=== PATIENT | female | born 1935 | race African-American/Black ===

== ENCOUNTER 2017-02-21 20:49 | Emergency (ER) | payer OTHER, MEDICAID ==
[~2017-02-21] VITALS: Ht 167.6 cm; Wt 96.6 kg
[~2017-02-21 20:49] MED LIST: AMARYL4 MG PO; AMLODIPINE BESY10 MG PO; COUMADIN2 MG PO; KLOR-CON 1010 MEQ PO; LASIX40 MG PO; PANTOPRAZOLE SO40 MG PO
[2017-02-21 22:18] LABS: BASOPHILS % (AUTO) 1.1 % (0.0-2.0); LYMPHOCYTES % (AUTO) 28.4 % (20.0-45.0); MEAN CORPUSCULAR HEMOGLOBIN 30.7 PG (27.0-31.0); MEAN CORPUSCULAR HGB CONC 32.9 G/DL (32.0-36.0); MEAN CORPUSCULAR VOLUME 94 FL (80-99); MEAN PLATELET VOLUME 7.4 FL (6.5-10.1); MONOCYTES % (AUTO) 8.4 % (1.0-10.0); PLATELET COUNT 186 K/UL (150-450); RED BLOOD COUNT 3.39 M/UL (4.20-5.40); RED CELL DISTRIBUTION WIDTH 14.2 % (11.6-14.8); WHITE BLOOD COUNT 6.4 K/UL (4.8-10.8)
--- NOTE | 2017-02-21 22:30 | Emergency Room Report ---
History of Present Illness General Chief Complaint: Lower Extremity Injury Source: Patient, Medical Record Present Illness HPI This is an 81-year-old female with a history hypertension, CHF, recent DVT on Coumadin. She presents with increasing pedal edema. This has been a chronic issue but worse in the last week. No nausea no vomiting. No trauma. No shortness of breath. It is interfering with her walking. She is currently taking 80 mg of Lasix a day. Allergies: Coded Allergies: BENAZEPRIL (Unverified Allergy, Unknown, 02/21/17) CODEINE (Unverified Allergy, Unknown, 02/21/17) PENICILLINS (Unverified Allergy, Unknown, 02/21/17) Uncoded Allergies: pcn (Allergy, Mild, sick, 10/17/12) Patient History Past Medical History: see triage record, old chart reviewed, HTN, CHF, other - dvt Past Surgical History: other Pertinent Family History: none Social History: Denies: smoking Last Menstrual Period: NA Now: No Immunizations: other Reviewed Nursing Documentation: PMH: Agreed, PSxH: Agreed Nursing Documentation-PMH Hx Hypertension: Yes - PAROXYSMAL ATRIAL TACHYCARDIA Hx Diabetes: Yes - OBESITY Hx Cancer: No Hx Cerebrovascular Accident: Yes Hx Vertigo: Yes Review of Systems Eye: Denies: blurred vision, eye pain ENT: Denies: ear pain, nose congestion, throat swelling Respiratory: Denies: cough, shortness of breath Cardiovascular: Denies: chest pain, palpitations Gastrointestinal: Denies: abdominal pain, diarrhea, nausea, vomiting Musculoskeletal: Reports: joint swelling, Denies: back pain, joint pain Skin: Denies: rash Neurological: Denies: headache, numbness Endocrine: Denies: increased thirst, increased urine Hematologic/Lymphatic: Denies: easy bruising All Other Systems: negative except mentioned in HPI Physical Exam Vital Signs Date Time Temp Pulse Resp B/P Pulse Ox O2 Delivery O2 Flow Rate FiO2 02/21/17 20:33 99.3 84 18 127/77 98 Room Air vitals normal Sp02 EP Interpretation: reviewed, normal General Appearance: well appearing, no apparent distress, alert Head: normocephalic, atraumatic Eyes: bilateral eye EOMI, bilateral eye PERRL ENT: hearing grossly normal, normal pharynx Neck: full range of motion, supple, no meningismus Respiratory: chest non-tender, lungs clear, normal breath sounds Cardiovascular #1: regular rate, rhythm, no murmur Gastrointestinal: normal bowel sounds, non tender, no mass, no organomegaly, no bruit, non-distended Musculoskeletal: back normal, normal range of motion, swelling - 2+ pitting edema Psychiatric: mood/affect normal Skin: warm/dry Medical Decision Making Diagnostic Impression: Primary Impression: Peripheral edema Additional Impressions: Anemia, chronic disease Renal insufficiency ER Course Patient with peripheral edema. No evidence of CHF. She diuresed well with IV Lasix. Challis better. No evidence of DVT. She started on Coumadin and is therapeutic INR. Doubt new DVT. No evidence of ACS. Because she's arty and a very large dose of Lasix, will switch to a loop diuretic. We'll discharge home. Lab Results Impression labs unremarkable Chest X-Ray Diagnostic Results Chest X-Ray Diagnostic Results : Chest X-Ray Ordered: Yes # of Views/Limited/Complete: 1 View Indication: Shortness of Breath EP Interpretation: Yes Interpretation: no consolidation, no effusion, no pneumothorax, no acute cardiopulmonary disease Impression: No acute disease Interpreting ER Provider: electronically signed by Shiv Gutierrez MD Last Vital Signs Date Time Temp Pulse Resp B/P Pulse Ox O2 Delivery O2 Flow Rate FiO2 02/21/17 20:33 99.3 84 18 127/77 98 Room Air Status: improved Disposition: HOME, SELF-CARE Condition: Stable Scripts Bumetanide* (BUMETANIDE*) 2 Mg Tablet 2 MG ORAL DAILY, #30 TAB Prov: SHIV GUTIERREZ M.D. 02/22/17 Additional Instructions: Stop your lasix. Use bumex instead. Follow up with your doctor in 7 days. Return if worse. SHIV GUTIERREZ M.D. Feb 21, 2017 22:29
[2017-02-21 22:36] LABS: ANION GAP 16 (5-15); CALCIUM 9.3 mg/dL (8.6-10.2); CARBON DIOXIDE 27 mEQ/L (20-30); CHLORIDE 103 mEQ/L (98-107); CREATININE 1.7 mg/dL (0.5-0.9); POTASSIUM 3.9 mEQ/L (3.4-4.9); SODIUM 146 mEQ/L (135-145)
[2017-02-21 22:38] LABS: INR 2.9 (0.9-1.1); PROTHROMBIN TIME 31.2 SEC (9.30-11.50)
[2017-02-21 22:44] LABS: HEMOLYSIS 159
[2017-02-22] MEDS ORDERED: BUMETANIDE2 MG ORAL (00:02)
[2017-02-22 02:09] VITALS: BP 127/77
--- NOTE | 2017-02-22 08:51 | Diagnostic Imaging Report ---
Indications: Shortness breath Technique: Portable AP chest Findings: Comparison: None Cardiac silhouette remains enlarged. Pulmonary vasculature remains within normal limits. Inspiratory effort has decreased. Linear densities have developed in the right lung base, left midlung. Visualized portions of lungs and pleura remain otherwise clear. Mild calcification of the aortic arch, mild S-shaped scoliosis of the thoracolumbar spine again noted. Right glenohumeral joint degenerative changes are now suggested.. IMPRESSION: Development of bilateral subsegmental atelectasis with decrease in inspiration Otherwise no evidence of acute disease, unchanged Suggestion of right glenohumeral degenerative arthropathy, suboptimally demonstrated. Clinically indicated, suggest right shoulder radiographs for further evaluation. Other stable chronic changes as described
== END 2017-02-22 02:09 | disposition home or self-care (01) ==
LOC: EDBD 20:49 → EMR 21:30
DX: R60.9 Edema, unspecified (principal); I10 Essential (primary) hypertension; I50.9 Heart failure, unspecified; Z86.718 Personal history of other venous thrombosis and embolism; Z79.01 Long term (current) use of anticoagulants; Z88.8 Allergy status to other drugs, medicaments and biological substances; Z88.6 Allergy status to analgesic agent; Z88.0 Allergy status to penicillin; E11.9 Type 2 diabetes mellitus without complications; Z86.73 Personal history of transient ischemic attack (TIA), and cerebral infarction without residual deficits; E66.9 Obesity, unspecified; Z68.34 Body mass index [BMI] 34.0-34.9, adult; D63.8 Anemia in other chronic diseases classified elsewhere; N28.9 Disorder of kidney and ureter, unspecified
CPT/HCPCS: 36415; 71010; 80048; 83880; 85025; 85610; 85730; 96374; 99284; J1940

== ENCOUNTER 2017-02-25 13:34 | Inpatient (IN) | payer OTHER, MEDICAID ==
[~2017-02-25] VITALS: Ht 167.6 cm; Wt 96.6 kg
[~2017-02-25 13:34] MED LIST changes: +BUMETANIDE2 MG ORAL
[2017-02-25 14:54] VITALS: BP 135/72
[2017-02-25 15:10] LABS: BASOPHILS % (AUTO) 0.5 % (0.0-2.0); EOSINOPHILS % (AUTO) 1.1 % (0.0-3.0); LYMPHOCYTES % (AUTO) 23.4 % (20.0-45.0); MEAN CORPUSCULAR HEMOGLOBIN 29.9 PG (27.0-31.0); MEAN CORPUSCULAR HGB CONC 32.1 G/DL (32.0-36.0); MEAN CORPUSCULAR VOLUME 93 FL (80-99); MEAN PLATELET VOLUME 6.9 FL (6.5-10.1); MONOCYTES % (AUTO) 7.6 % (1.0-10.0); NEUTROPHILS % (AUTO) 67.4 % (45.0-75.0); PLATELET COUNT 203 K/UL (150-450); RED CELL DISTRIBUTION WIDTH 14.1 % (11.6-14.8); WHITE BLOOD COUNT 6.5 K/UL (4.8-10.8)
[2017-02-25 15:28] LABS: TROPONIN I < 0.30 ng/mL (<=0.30)
[2017-02-25 15:29] LABS: INR 2.8 (0.9-1.1)
[2017-02-25 15:31] LABS: ALANINE AMINOTRANSFERASE 14 U/L (3-33); ASPARTATE AMINO TRANSFERASE 17 U/L (5-40); CALCIUM 9.1 mg/dL (8.6-10.2); CHLORIDE 97 mEQ/L (98-107); CREATININE 1.9 mg/dL (0.5-0.9); POTASSIUM 2.8 mEQ/L (3.4-4.9); SODIUM 143 mEQ/L (135-145)
[2017-02-25 15:43] LABS: ALBUMIN/GLOBULIN RATIO 1.2 (1.0-2.7); ANION GAP 18 (5-15); CARBON DIOXIDE 28 mEQ/L (20-30); TOTAL PROTEIN 7.3 g/dL (6.6-8.7)
[2017-02-25 15:58] LABS: CKMB < 1.5 ng/mL (< 3.8)
[2017-02-25] MEDS ORDERED: Miralax 17gm pkt ORAL PRN (16:00)
[2017-02-25] MEDS ORDERED: DuoNeb 0.5-3(2.5)mg/3ml neb HHN PRN (16:00)
[2017-02-25 16:20] VITALS: BP 147/86
[2017-02-25] MEDS ORDERED: ZAROXOLYN2.5 MG ORAL (16:56)
[2017-02-25] MEDS ORDERED: ATORVASTATIN CA20 MG ORAL (16:56)
[2017-02-25] MEDS ORDERED: CARTIA XT240 MG ORAL (16:56)
[2017-02-25] MEDS ORDERED: PANTOPRAZOLE SO40 MG ORAL (16:56)
[2017-02-25] MEDS ORDERED: WARFARIN SODIUM4 MG ORAL (16:57)
[2017-02-25] MEDS ORDERED: HYDRALAZINE HCL25 M1 ORAL (16:58)
[2017-02-25] MEDS ORDERED: VITAMIN D22000 UNIT PO (16:58)
[2017-02-25] MEDS ORDERED: XALATAN2.5 ML BOTH EYES (16:58)
[2017-02-25] MEDS ORDERED: Morphine Sulfate 4mg/ml Inj ONE (17:14)
--- NOTE | 2017-02-25 17:57 | Emergency Room Report ---
History of Present Illness General Chief Complaint: Dyspnea/Respdistress Source: Patient, Medical Record Present Illness HPI 81-year-old female presents ED for evaluation. [employer] Specialist at bedside states that patient is complaining of shortness of breath times one week also complaining of bilateral leg pain and swelling. Has history of DVT. Currently on blood thinners. Patient denies any chest pain. No shortness of breath while at rest and when walking. Patient states she takes "water pills" for the swelling in her legs. No other aggravating or relieving factors. Denies any other associated symptom Allergies: Coded Allergies: BENAZEPRIL (Unverified Allergy, Unknown, 02/21/17) CODEINE (Unverified Allergy, Unknown, 02/21/17) PENICILLINS (Unverified Allergy, Unknown, 02/21/17) Uncoded Allergies: pcn (Allergy, Mild, sick, 10/17/12) Patient History Past Medical History: HTN, CVA/TIA Past Surgical History: none Pertinent Family History: none Social History: Denies: alcohol use, drug use, smoking Now: No Immunizations: UTD Reviewed Nursing Documentation: PMH: Agreed, PSxH: Agreed Nursing Documentation-PMH Hx Hypertension: Yes - PAROXYSMAL ATRIAL TACHYCARDIA Hx Diabetes: Yes - OBESITY Hx Cancer: No Hx Cerebrovascular Accident: Yes Hx Vertigo: Yes Review of Systems All Other Systems: negative except mentioned in HPI Physical Exam Vital Signs Date Time Temp Pulse Resp B/P Pulse Ox O2 Delivery O2 Flow Rate FiO2 02/25/17 13:44 98.2 88 18 139/72 97 Room Air Sp02 EP Interpretation: reviewed, normal General Appearance: no apparent distress, alert, GCS 15, non-toxic Head: normocephalic, atraumatic Eyes: bilateral eye PERRL, bilateral eye normal inspection ENT: hearing grossly normal, normal pharynx, no angioedema, normal voice Neck: full range of motion, supple/symm/no masses Respiratory: chest non-tender, lungs clear, normal breath sounds, speaking full sentences Cardiovascular #1: regular rate, rhythm, no edema Cardiovascular #2: 2+ carotid (R), 2+ carotid (L), 2+ radial (R), 2+ radial (L) , 2+ dorsalis pedis (R), 2+ dorsalis pedis (L) Gastrointestinal: normal bowel sounds, non tender, soft, non-distended, no guarding, no rebound Rectal: deferred Genitourinary: normal inspection, no CVA tenderness Musculoskeletal: back normal, gait/station normal, normal range of motion, swelling - 2+ pitting edema b/l EL Neurologic: alert, oriented x3, responsive, motor strength/tone normal, sensory intact, speech normal Psychiatric: judgement/insight normal, memory normal, mood/affect normal, no suicidal/homicidal ideation Reflexes: 3+ bicep (R), 3+ bicep (L), 3+ tricep (R), 3+ tricep (L), 3+ knee (R) , 3+ knee (L) Skin: normal color, no rash, warm/dry, well hydrated Lymphatic: no adenopathy Medical Decision Making Diagnostic Impression: Primary Impression: Shortness of breath Additional Impressions: Peripheral edema Chronic deep vein thrombosis (DVT) Qualified Codes: I82.503 - Chronic embolism and thrombosis of unspecified deep veins of lower extremity, bilateral Renal insufficiency ER Course Hospital Course 81-year-old male presents ED complaining of shortness of breath, leg swelling x1 week Differential diagnoses include: [place]/unstable angina, contusion, muscle strain, PTX, rib fracture Clinical course Patient placed on stretcher. on hall monitor. After initial history and physical I ordered labs, EKG, chest x-ray, b/l LE dopplers labs reviewed- no leukocytosis, hemoglobin/hematocrit stable, K 2.8 creatinine elevated, troponins negative, BNP ok doppler US - negative for acute dvt, chronic dvt noted Chest x-ray- cardiomegaly EKG - NSR, no acute changes interpreted by me K repleted Case discussed with Dr. jon and he agreed to accept the patient to his service for further care and support I. I feel this is a highly complex case requiring extensive working including EKG/Rhythm strip, Xray/CT/US, Blood/urine lab work, repeat exams while in ED, and administration of strong opiates/narcotics for pain control, admission to hospital or close patient follow up. Diagnosis - Shortness of breath, peripheral edema, chronic DVT, renal insufficiency admitted to telemetry in serious condition Labs Test 02/25/17 14:26 White Blood Count 6.5 K/UL (4.8-10.8) Red Blood Count 3.40 M/UL (4.20-5.40) Hemoglobin 10.1 G/DL (12.0-16.0) Hematocrit 31.6 % (37.0-47.0) Mean Corpuscular Volume 93 FL (80-99) Mean Corpuscular Hemoglobin 29.9 PG (27.0-31.0) Mean Corpuscular Hemoglobin Concent 32.1 G/DL (32.0-36.0) Red Cell Distribution Width 14.1 % (11.6-14.8) Platelet Count 203 K/UL (150-450) Mean Platelet Volume 6.9 FL (6.5-10.1) Neutrophils (%) (Auto) 67.4 % (45.0-75.0) Lymphocytes (%) (Auto) 23.4 % (20.0-45.0) Monocytes (%) (Auto) 7.6 % (1.0-10.0) Eosinophils (%) (Auto) 1.1 % (0.0-3.0) Basophils (%) (Auto) 0.5 % (0.0-2.0) Prothrombin Time 30.0 SEC (9.30-11.50) Prothromb Time International Ratio 2.8 (0.9-1.1) Activated Partial Thromboplast Time 48 SEC (23-33) Sodium Level 143 mEQ/L (135-145) Potassium Level 2.8 mEQ/L (3.4-4.9) Chloride Level 97 mEQ/L (98-107) Carbon Dioxide Level 28 mEQ/L (20-30) Anion Gap 18 (5-15) Blood Urea Nitrogen 48 mg/dL (7-23) Creatinine 1.9 mg/dL (0.5-0.9) Estimat Glomerular Filtration Rate mL/min (>60) Glucose Level 178 mg/dL (74-106) Calcium Level 9.1 mg/dL (8.6-10.2) Total Bilirubin 0.5 mg/dL (0.0-1.2) Aspartate Amino Transf (AST/SGOT) 17 U/L (5-40) Alanine Aminotransferase (ALT/SGPT) 14 U/L (3-33) Alkaline Phosphatase 76 U/L (35-104) Total Creatine Kinase 101 U/L (26-140) Creatine Kinase MB < 1.5 ng/mL (< 3.8) Creatine Kinase MB Relative Index Troponin I < 0.30 ng/mL (<=0.30) Pro-B-Type Natriuretic Peptide 81 pg/mL (0-450) Total Protein 7.3 g/dL (6.6-8.7) Albumin 4.1 g/dL (3.5-5.2) Globulin 3.2 g/dL Albumin/Globulin Ratio 1.2 (1.0-2.7) EKG Diagnostic Results Rate: normal Rhythm: NSR ST Segments: no acute changes ASA given to the pt in ED: No Rhythm Strip Diag. Results EP Interpretation: yes Rhythm: NSR, no PVC's, no ectopy Chest X-Ray Diagnostic Results Chest X-Ray Diagnostic Results : Chest X-Ray Ordered: Yes # of Views/Limited/Complete: 1 View Indication: Shortness of Breath EP Interpretation: Yes Interpretation: no consolidation, no effusion, no pneumothorax, no acute cardiopulmonary disease, other - cardiomegaly Impression: No acute disease Interpreting ER Provider: electronically signed by Bin Pollock mD CT/MRI/US Diagnostic Results CT/MRI/US Diagnostic Results : Imaging Test Ordered: Doppler US bilateral LE Impression chronic dvt bilterally. no acute DVT Last Vital Signs Date Time Temp Pulse Resp B/P Pulse Ox O2 Delivery O2 Flow Rate FiO2 02/25/17 16:20 77 19 147/86 100 Room Air 02/25/17 14:54 98.1 Status: improved Disposition: ADMITTED INPATIENT Condition: Serious Referrals: [facility],REFERRING (PCP) BIN POLLOCK M.D. Feb 25, 2017 17:57
--- NOTE | 2017-02-25 17:58 | History and Physical ---
History of Present Illness General Date patient seen: Feb 25, 2017 Reason for Hospitalization: Dyspnea/Respdistress Present Illness HPI 81-year-old female with hx of HTN, CHF, DVT, presents to ED for evaluation of shortness of breath times one week also complaining of bilateral leg pain and swelling. Patient denies any chest pain. No shortness of breath while at rest and when walking. Patient states she takes "water pills" for the swelling in her legs. No other aggravating or relieving factors. Denies any other associated symptom. she is admitted for acute exacerbation of CHF and decompensated right side heart failure with worsening peripheral edema. Allergies: Coded Allergies: BENAZEPRIL (Unverified Allergy, Unknown, 02/21/17) CODEINE (Unverified Allergy, Unknown, 02/21/17) PENICILLINS (Unverified Allergy, Unknown, 02/21/17) Uncoded Allergies: pcn (Allergy, Mild, sick, 10/17/12) Medication History Scheduled Amlodipine Besylate* (Amlodipine Besylate*), 10 MG PO DAILY, (Reported) Atorvastatin Calcium* (Atorvastatin Calcium*), 10 MG ORAL BEDTIME, (Reported) Bumetanide* (Bumetanide*), 2 MG ORAL DAILY Diltiazem Hcl* (Cartia Xt*), 240 MG ORAL DAILY, (Reported) Ergocalciferol (Vitamin D2) (Vitamin D2), 50,000 UNIT PO ONCE A WEEK, (Reported) Furosemide* (Lasix*), 40 MG PO DAILY, (Reported) Glimepiride* (Amaryl*), 2 MG PO ACBREAKFAST, (Reported) Hydralazine Hcl* (Hydralazine Hcl*), 25 MG ORAL EVERY 8 HOURS, (Reported) Latanoprost* (Xalatan*), 1 DROP BOTH EYES BEDTIME, (Reported) Metolazone (Metolazone), 5 MG ORAL THREE TIMES A WEEK, (Reported) Pantoprazole* (Pantoprazole*), 40 MG PO DAILY, (Reported) Pantoprazole* (Pantoprazole*), 40 MG ORAL DAILY, (Reported) Potassium Chloride (Klor-Con 10), 10 MEQ PO BID, (Reported) Warfarin Sod* (Coumadin*), 6 MG PO DAILY, (Reported) Warfarin Sod* (Warfarin Sod*), 3 MG ORAL DAILY, (Reported) Patient History Healthcare decision maker Resuscitation status Advanced Directive on File Past Medical/Surgical History Past Medical/Surgical History: (1) CHF (congestive heart failure) (2) Chronic deep vein thrombosis (DVT) (3) Peripheral edema Review of Systems All Other Systems: negative except mentioned in HPI Physical Exam General Appearance: WD/WN Lines, tubes and drains: peripheral HEENT: normocephalic, atraumatic Neck: non-tender, normal alignment Respiratory/Chest: chest wall non-tender, lungs clear Cardiovascular/Chest: normal peripheral pulses, normal rate Abdomen: normal bowel sounds, non tender Genitourinary/Rectal: normal genital exam Extremities: normal range of motion Skin Exam: normal pigmentation Last 24 Hour Vital Signs Date Time Temp Pulse Resp B/P Pulse Ox O2 Delivery O2 Flow Rate FiO2 02/25/17 16:20 77 19 147/86 100 Room Air 02/25/17 14:54 98.1 73 16 135/72 99 Room Air 02/25/17 14:00 72 14 Room Air 02/25/17 13:44 98.2 88 18 139/72 97 Room Air Laboratory Tests Test 02/25/17 14:26 White Blood Count 6.5 K/UL (4.8-10.8) Red Blood Count 3.40 M/UL (4.20-5.40) L Hemoglobin 10.1 G/DL (12.0-16.0) L Hematocrit 31.6 % (37.0-47.0) L Mean Corpuscular Volume 93 FL (80-99) Mean Corpuscular Hemoglobin 29.9 PG (27.0-31.0) Mean Corpuscular Hemoglobin Concent 32.1 G/DL (32.0-36.0) Red Cell Distribution Width 14.1 % (11.6-14.8) Platelet Count 203 K/UL (150-450) Mean Platelet Volume 6.9 FL (6.5-10.1) Neutrophils (%) (Auto) 67.4 % (45.0-75.0) Lymphocytes (%) (Auto) 23.4 % (20.0-45.0) Monocytes (%) (Auto) 7.6 % (1.0-10.0) Eosinophils (%) (Auto) 1.1 % (0.0-3.0) Basophils (%) (Auto) 0.5 % (0.0-2.0) Prothrombin Time 30.0 SEC (9.30-11.50) H Prothromb Time International Ratio 2.8 (0.9-1.1) H Activated Partial Thromboplast Time 48 SEC (23-33) H Sodium Level 143 mEQ/L (135-145) Potassium Level 2.8 mEQ/L (3.4-4.9) L Chloride Level 97 mEQ/L (98-107) L Carbon Dioxide Level 28 mEQ/L (20-30) Anion Gap 18 (5-15) H Blood Urea Nitrogen 48 mg/dL (7-23) H Creatinine 1.9 mg/dL (0.5-0.9) H Estimat Glomerular Filtration Rate mL/min (>60) Glucose Level 178 mg/dL (74-106) H Calcium Level 9.1 mg/dL (8.6-10.2) Total Bilirubin 0.5 mg/dL (0.0-1.2) Aspartate Amino Transf (AST/SGOT) 17 U/L (5-40) Alanine Aminotransferase (ALT/SGPT) 14 U/L (3-33) Alkaline Phosphatase 76 U/L (35-104) Total Creatine Kinase 101 U/L (26-140) Creatine Kinase MB < 1.5 ng/mL (< 3.8) Creatine Kinase MB Relative Index Troponin I < 0.30 ng/mL (<=0.30) Pro-B-Type Natriuretic Peptide 81 pg/mL (0-450) Total Protein 7.3 g/dL (6.6-8.7) Albumin 4.1 g/dL (3.5-5.2) Globulin 3.2 g/dL Albumin/Globulin Ratio 1.2 (1.0-2.7) Height (Feet): 5 Height (Inches): 6.00 Weight (Pounds): 213 Medications Current Medications Medications (Trade) Dose Ordered Sig/Chaim Route PRN Reason Start Time Stop Time Status Last Admin Dose Admin Acetaminophen (Tylenol) 650 mg Q4H PRN ORAL Fever 02/25/17 16:00 03/27/17 15:59 Albuterol/ Ipratropium (DuoNeb 0.5-3(2.5)mg/3ml) 3 ml Q4H PRN HHN Shortness of Breath 02/25/17 16:00 03/02/17 15:59 Amlodipine Besylate (Norvasc) 10 mg DAILY ORAL 02/26/17 09:00 03/28/17 08:59 UNV Dextrose (Dextrose 50%) STAT PRN IV Hypoglycemia 02/25/17 16:00 03/27/17 15:59 Furosemide (Lasix) 40 mg EVERY 8 HOURS IV 02/25/17 22:00 03/27/17 21:59 UNV Insulin Aspart (NovoLOG) BEFORE MEALS AND HS SUBQ 02/25/17 16:30 03/27/17 16:29 UNV Ondansetron HCl (Zofran) 4 mg Q6H PRN IVP Nausea & Vomiting 02/25/17 16:00 03/27/17 15:59 Pantoprazole (Protonix) 40 mg DAILY ORAL 02/26/17 09:00 03/28/17 08:59 UNV Polyethylene Glycol (Miralax) 17 gm DAILYPRN PRN ORAL Constipation 02/25/17 16:00 03/27/17 15:59 Temazepam (Restoril) 15 mg HSPRN PRN ORAL Insomnia 02/25/17 16:00 03/04/17 15:59 Warfarin Sodium (Coumadin) 6 mg DAILY ORAL 02/26/17 09:00 03/03/17 08:59 UNV Assessment/Plan Problem List: (1) Peripheral edema ICD Codes: R60.9 - Edema, unspecified SNOMED: 172669093, 735611346 (2) CHF (congestive heart failure) ICD Codes: I50.9 - Heart failure, unspecified SNOMED: 61463810 (3) ATN (acute tubular necrosis) ICD Codes: N17.0 - Acute kidney failure with tubular necrosis SNOMED: 57675744 (4) Chronic deep vein thrombosis (DVT) ICD Codes: I82.509 - Chronic embolism and thrombosis of unspecified deep veins of unspecified lower extremity SNOMED: 13172191572063277, 119111423 Qualifiers: Qualified Codes: I82.503 - Chronic embolism and thrombosis of unspecified deep veins of lower extremity, bilateral Assessment/Plan diuretics check echo renal studies pt/ot continue coumadin BEVERLEY JOE Feb 25, 2017 17:58
[2017-02-25 18:00] VITALS: BP 132/69
[2017-02-25 18:58] VITALS: BP 143/74
[2017-02-25 20:00] VITALS: BP 139/74
[2017-02-25] MEDS: NovoLOG Insulin Flexpen SUBQ SCH (20:57)
[2017-02-25] MEDS ORDERED: Warfarin Sodium 3mg ORAL ONE (22:00)
[2017-02-26] VITALS (7 sets, daily range): BP systolic 105–137; BP diastolic 68–88
[2017-02-26] MEDS: NovoLOG Insulin Flexpen SUBQ SCH ×4 (06:04→20:20)
[2017-02-26 08:02] LABS: BASOPHILS % (AUTO) 0.7 % (0.0-2.0); EOSINOPHILS % (AUTO) 1.1 % (0.0-3.0); LYMPHOCYTES % (AUTO) 25.3 % (20.0-45.0); MEAN CORPUSCULAR HEMOGLOBIN 29.7 PG (27.0-31.0); MEAN CORPUSCULAR HGB CONC 31.7 G/DL (32.0-36.0); MEAN CORPUSCULAR VOLUME 93 FL (80-99); MEAN PLATELET VOLUME 7.1 FL (6.5-10.1); MONOCYTES % (AUTO) 7.8 % (1.0-10.0); NEUTROPHILS % (AUTO) 65.1 % (45.0-75.0); PLATELET COUNT 205 K/UL (150-450); RED CELL DISTRIBUTION WIDTH 13.6 % (11.6-14.8); WHITE BLOOD COUNT 7.2 K/UL (4.8-10.8)
[2017-02-26 08:06] LABS: INR 2.7 (0.9-1.1); PROTHROMBIN TIME 28.2 SEC (9.30-11.50)
--- NOTE | 2017-02-26 08:46 | Diagnostic Imaging Report ---
APPROVED REPORT CPT Code: 22024 Present Symptoms Comments: Swelling RIGHT LEG: Venous imaging reveals a patent deep venous system. There is no evidence of thrombus within the femoral, or popliteal segments. The greater saphenous vein is also within normal limits. Doppler indicates normal spontaneous flow within these segments. Calf veins were poorly visualized; due to swelling. LEFT LEG: Venous imaging reveals recanalized chronic thrombus in the common femoral to popliteal veins. Large collateral vein noted anterior to the superficial femoral artery. Remainder of the deep venous system within normal limits. No evidence of thrombus in the calf veins. Greater saphenous vein also within normal limits. There is no evidence of acute deep vein thrombosis.
--- NOTE | 2017-02-26 08:47 | Diagnostic Imaging Report ---
Indication: Dyspnea Comparison: 02/21/17 A single view chest radiograph was obtained. Findings: There is a hiatal hernia. Cardiomegaly and other enlargement of aorta noted. The lungs are essentially clear. Bones are osteopenic. Impression: No acute disease. No significant change
[2017-02-26 08:52] LABS: TROPONIN I < 0.30 ng/mL (<=0.30)
[2017-02-26 09:04] LABS: ANION GAP 16 (5-15); CALCIUM 9.4 mg/dL (8.6-10.2); CARBON DIOXIDE 31 mEQ/L (20-30); CHLORIDE 99 mEQ/L (98-107); CREATININE 1.6 mg/dL (0.5-0.9); HEMOLYSIS 2; PHOSPHORUS 2.7 mg/dL (2.5-4.8); POTASSIUM 2.8 mEQ/L (3.4-4.9); SODIUM 146 mEQ/L (135-145)
--- NOTE | 2017-02-26 10:50 | Diagnostic Imaging Report ---
Indication: DYSPNEA Technique: One view of the chest Comparison: 02/25/2017 Findings: The heart is enlarged. There is a large hiatal hernia again demonstrated. Lungs and pleural spaces remain clear. Right hilar vascular prominence is unchanged since 2007. There are fairly severe degenerative changes of the right shoulder Impression: No acute process Cardiomegaly Hiatal hernia, also previously described
--- NOTE | 2017-02-26 12:10 | Pulmonology Progress Note ---
Assessment/Plan Problems: (1) Peripheral edema (2) CHF (congestive heart failure) (3) ATN (acute tubular necrosis) (4) Chronic deep vein thrombosis (DVT) Assessment/Plan improving continue lasix check echo renal and cardio evaluation Subjective ROS Limited/Unobtainable: No Interval Events: improivng Allergies: Coded Allergies: BENAZEPRIL (Unverified Allergy, Unknown, 02/21/17) CODEINE (Unverified Allergy, Unknown, 02/21/17) PENICILLINS (Unverified Allergy, Unknown, 02/21/17) Uncoded Allergies: pcn (Allergy, Mild, sick, 10/17/12) Objective Last 24 Hour Vital Signs Date Time Temp Pulse Resp B/P Pulse Ox O2 Delivery O2 Flow Rate FiO2 02/26/17 11:29 98.3 85 18 124/83 99 Room Air 02/26/17 09:53 78 18 Room Air 02/26/17 08:18 69 130/88 02/26/17 08:04 98.1 69 18 130/88 96 Room Air 02/26/17 08:00 83 02/26/17 08:00 98.1 69 18 130/88 96 Room Air 02/26/17 04:00 97.3 73 20 105/68 96 Room Air 02/26/17 04:00 74 02/26/17 00:00 78 02/26/17 00:00 97.3 70 18 120/70 95 Room Air 02/25/17 20:21 76 18 Room Air 02/25/17 20:00 76 02/25/17 20:00 97.9 78 20 139/74 97 Room Air 02/25/17 18:58 98.1 80 20 143/74 96 Room Air 02/25/17 18:00 78 21 132/69 98 Room Air 02/25/17 17:30 98.1 77 19 147/86 100 Room Air 02/25/17 16:20 77 19 147/86 100 Room Air 02/25/17 14:54 98.1 73 16 135/72 99 Room Air 02/25/17 14:00 72 14 Room Air 02/25/17 13:44 98.2 88 18 139/72 97 Room Air Intake and Output 02/25/17 02/26/17 19:00 07:00 Intake Total 0 ml 120 ml Balance 0 ml 120 ml Intake Oral 0 ml 120 ml # Voids 2 General Appearance: WD/WN HEENT: normocephalic, atraumatic Respiratory/Chest: chest wall non-tender, normal breath sounds Breasts: no masses Cardiovascular: normal peripheral pulses, regularly irregular Abdomen: normal bowel sounds, soft, non tender Extremities: other - edema Laboratory Tests 02/25/17 14:26: White Blood Count 6.5, Red Blood Count 3.40L, Hemoglobin 10.1L, Hematocrit 31.6L , Mean Corpuscular Volume 93, Mean Corpuscular Hemoglobin 29.9, Mean Corpuscular Hemoglobin Concent 32.1, Red Cell Distribution Width 14.1, Platelet Count 203, Mean Platelet Volume 6.9, Neutrophils (%) (Auto) 67.4, Lymphocytes (% ) (Auto) 23.4, Monocytes (%) (Auto) 7.6, Eosinophils (%) (Auto) 1.1, Basophils ( %) (Auto) 0.5, Prothrombin Time 30.0H, Prothromb Time International Ratio 2.8H, Activated Partial Thromboplast Time 48H, Sodium Level 143, Potassium Level 2.8L , Chloride Level 97L, Carbon Dioxide Level 28, Anion Gap 18H, Blood Urea Nitrogen 48H, Creatinine 1.9H, Estimat Glomerular Filtration Rate , Glucose Level 178H, Calcium Level 9.1, Total Bilirubin 0.5, Aspartate Amino Transf (AST/ SGOT) 17, Alanine Aminotransferase (ALT/SGPT) 14, Alkaline Phosphatase 76, Total Creatine Kinase 101, Creatine Kinase MB < 1.5, Creatine Kinase MB Relative Index , Troponin I < 0.30, Pro-B-Type Natriuretic Peptide 81, Total Protein 7.3, Albumin 4.1, Globulin 3.2, Albumin/Globulin Ratio 1.2 02/26/17 07:30: White Blood Count 7.2, Red Blood Count 3.70L, Hemoglobin 11.0L, Hematocrit 34.6L , Mean Corpuscular Volume 93, Mean Corpuscular Hemoglobin 29.7, Mean Corpuscular Hemoglobin Concent 31.7L, Red Cell Distribution Width 13.6, Platelet Count 205, Mean Platelet Volume 7.1, Neutrophils (%) (Auto) 65.1, Lymphocytes (%) (Auto) 25.3, Monocytes (%) (Auto) 7.8, Eosinophils (%) (Auto) 1.1, Basophils (%) (Auto) 0.7, Prothrombin Time 28.2H, Prothromb Time International Ratio 2.7H, Sodium Level 146H, Potassium Level 2.8L, Chloride Level 99, Carbon Dioxide Level 31H, Anion Gap 16H, Blood Urea Nitrogen 44H, Creatinine 1.6H, Estimat Glomerular Filtration Rate , Glucose Level 124H, Calcium Level 9.4, Troponin I < 0.30, Albumin 4.0, Phosphorus Level 2.7 Current Medications Medications (Trade) Dose Ordered Sig/Chaim Route PRN Reason Start Time Stop Time Status Last Admin Dose Admin Acetaminophen (Tylenol) 650 mg Q4H PRN ORAL Fever 02/25/17 16:00 03/27/17 15:59 Albuterol/ Ipratropium (DuoNeb 0.5-3(2.5)mg/3ml) 3 ml Q4H PRN HHN Shortness of Breath 02/25/17 16:00 03/02/17 15:59 Amlodipine Besylate (Norvasc) 10 mg DAILY ORAL 02/26/17 09:00 03/28/17 08:59 02/26/17 08:18 Dextrose (Dextrose 50%) STAT PRN IV Hypoglycemia 02/25/17 16:00 03/27/17 15:59 Furosemide (Lasix) 40 mg EVERY 8 HOURS IV 02/25/17 22:00 03/27/17 21:59 02/26/17 05:41 Insulin Aspart (NovoLOG) BEFORE MEALS AND HS SUBQ 02/25/17 21:00 03/27/17 20:59 02/26/17 11:28 Ondansetron HCl (Zofran) 4 mg Q6H PRN IVP Nausea & Vomiting 02/25/17 16:00 03/27/17 15:59 Pantoprazole (Protonix) 40 mg ACBREAKFAST ORAL 02/27/17 06:30 03/28/17 08:59 Polyethylene Glycol (Miralax) 17 gm DAILYPRN PRN ORAL Constipation 02/25/17 16:00 03/27/17 15:59 Potassium Chloride (K-Dur) 20 meq BID ORAL 02/26/17 09:00 03/28/17 08:59 02/26/17 08:18 Temazepam (Restoril) 15 mg HSPRN PRN ORAL Insomnia 02/25/17 16:00 7/18/17 15:59 Warfarin Sodium (Coumadin per pharmacy) 1 ea DAILY PRN MISC PER RX PROTOCOL 02/25/17 19:15 03/27/17 19:14 Warfarin Sodium (Coumadin) 3 mg COUMADIN ONCE ORAL 02/26/17 17:00 02/26/17 17:01 BEVERLEY JOE Feb 26, 2017 12:10
[2017-02-26 14:11] LABS: APPEARANCE,URINE CLEAR; KETONES,URINE NEGATIVE (NEGATIVE); LEUKOCYTE ESTERASE ,URINE NEGATIVE (NEGATIVE); NITRITE,URINE NEGATIVE (NEGATIVE); PH,URINE 7 (4.5-8.0); PROTEIN,URINE NEGATIVE (NEGATIVE); UROBILINOGEN,URINE NORMAL MG/DL (0.0-1.0)
[2017-02-26 14:20] LABS: BACTERIA,URINE FEW /HPF; SQUAMOUS EPITHELIAL CELL,UR MODERATE /LPF (NONE/OCC); WBC,URINE 0-2 /HPF (0 - 2)
--- NOTE | 2017-02-26 14:53 | Cardiology Report ---
APPROVED REPORT EXAM: Two-dimensional and M-mode echocardiogram with Doppler and color Doppler. INDICATION Left Ventricular Function M-Mode DIMENSIONS IVSd1.1 (0.7-1.1cm)Left Atrium (MM)3.7 (1.6-4.0cm) LVDd5.1 (3.5-5.6cm)Aortic Root2.7 (2.0-3.7cm) PWd0.7 (0.7-1.1cm)Aortic Cusp Exc.1.8 (1.5-2.0cm) LVDs3.5 (2.5-4.0cm) PWs1.1 cm Other Information Technically limited study due to body habitus. Normal left ventricular chamber size, systolic function and wall motion. Left ventricular ejection fraction estimated to be 55 %. No evidence of ventricular hypertrophy. No evidence of pericardial fat or effusion. All other cardiac chamber sizes are within normal limits. Mild focal aortic valve sclerosis with adequate cusp excursion. Mildly thickened mitral valve leaflets with normal excursion. Mild mitral annulus and aortic root calcification. Normal pulmonic valve structure. Normal tricuspid valve structure. Subcostal views not obtainable. A color flow and spectral Doppler study was performed and revealed: Mild aortic regurgitation. No mitral regurgitation. Mitral diastolic velocities suggest reduced left ventricular relaxation (Grade I). Mild tricuspid regurgitation. Tricuspid systolic velocities suggests peak right ventricular systolic pressure of 59 mmHg, consistent with moderate pulmonary hypertension. Mild pulmonic regurgitation present.
--- NOTE | 2017-02-26 16:55 | Cardiology Report ---
APPROVED REPORT EKG Measurement Heart [id number] Normal sinus rhythm Moderate voltage criteria for LVH, may be normal variant Possible Lateral infarct, age undetermined Abnormal ECG
[2017-02-26] MEDS ORDERED: Warfarin Sodium 3mg ORAL ONE (17:00)
--- NOTE | 2017-02-26 20:51 | Cardiology Progress Note ---
Assessment/Plan Assessment/Plan doubt chf may have chronic vte pulm htn dm systemic htn echo not show diastolic dysfunction and no systolic dysfuction consider v/q [id number] Objective Last 24 Hour Vital Signs Date Time Temp Pulse Resp B/P Pulse Ox O2 Delivery O2 Flow Rate FiO2 02/26/17 20:00 83 20 137/70 Room Air 02/26/17 19:30 74 20 Room Air 21 02/26/17 16:00 77 02/26/17 15:19 98.0 70 18 117/71 94 Room Air 02/26/17 14:15 98.3 02/26/17 12:00 71 02/26/17 11:29 98.3 85 18 124/83 99 Room Air 02/26/17 09:53 78 18 Room Air 02/26/17 08:18 69 130/88 02/26/17 08:04 98.1 69 18 130/88 96 Room Air 02/26/17 08:00 83 02/26/17 08:00 98.1 69 18 130/88 96 Room Air 02/26/17 04:00 97.3 73 20 105/68 96 Room Air 02/26/17 04:00 74 02/26/17 00:00 78 02/26/17 00:00 97.3 70 18 120/70 95 Room Air Intake and Output 02/25/17 02/26/17 19:00 07:00 Intake Total 0 ml 120 ml Balance 0 ml 120 ml Intake Oral 0 ml 120 ml # Voids 2 Laboratory Tests Test 02/26/17 07:30 02/26/17 13:30 White Blood Count 7.2 K/UL (4.8-10.8) Red Blood Count 3.70 M/UL (4.20-5.40) L Hemoglobin 11.0 G/DL (12.0-16.0) L Hematocrit 34.6 % (37.0-47.0) L Mean Corpuscular Volume 93 FL (80-99) Mean Corpuscular Hemoglobin 29.7 PG (27.0-31.0) Mean Corpuscular Hemoglobin Concent 31.7 G/DL (32.0-36.0) L Red Cell Distribution Width 13.6 % (11.6-14.8) Platelet Count 205 K/UL (150-450) Mean Platelet Volume 7.1 FL (6.5-10.1) Neutrophils (%) (Auto) 65.1 % (45.0-75.0) Lymphocytes (%) (Auto) 25.3 % (20.0-45.0) Monocytes (%) (Auto) 7.8 % (1.0-10.0) Eosinophils (%) (Auto) 1.1 % (0.0-3.0) Basophils (%) (Auto) 0.7 % (0.0-2.0) Prothrombin Time 28.2 SEC (9.30-11.50) H Prothromb Time International Ratio 2.7 (0.9-1.1) H Sodium Level 146 mEQ/L (135-145) H Potassium Level 2.8 mEQ/L (3.4-4.9) L Chloride Level 99 mEQ/L (98-107) Carbon Dioxide Level 31 mEQ/L (20-30) H Anion Gap 16 (5-15) H Blood Urea Nitrogen 44 mg/dL (7-23) H Creatinine 1.6 mg/dL (0.5-0.9) H Estimat Glomerular Filtration Rate mL/min (>60) Glucose Level 124 mg/dL (74-106) H Uric Acid Pending Calcium Level 9.4 mg/dL (8.6-10.2) Phosphorus Level 2.7 mg/dL (2.5-4.8) Troponin I < 0.30 ng/mL (<=0.30) Albumin 4.0 g/dL (3.5-5.2) Urine Color Pale yellow Urine Appearance Clear Urine pH 7 (4.5-8.0) Urine Specific [place] 1.005 (1.005-1.035) Urine Protein Negative (NEGATIVE) Urine Glucose (UA) Negative (NEGATIVE) Urine Ketones Negative (NEGATIVE) Urine Occult Blood 1+ (NEGATIVE) H Urine Nitrite Negative (NEGATIVE) Urine Bilirubin Negative (NEGATIVE) Urine Urobilinogen Normal MG/DL (0.0-1.0) Urine Leukocyte Esterase Negative (NEGATIVE) Urine RBC 2-4 /HPF (0 - 2) H Urine WBC 0-2 /HPF (0 - 2) Urine Squamous Epithelial Cells Moderate /LPF (NONE/OCC) H Urine Bacteria Few /HPF (NONE) Urine Eosinophils None seen Urine Random Sodium 90 mmol/L Urine Potassium Timed 30 mmol/L BETTIE PIERRE Feb 26, 2017 20:51
[2017-02-27] VITALS: BP 134/86
[2017-02-27 04:00] VITALS: BP 132/82
[2017-02-27] MEDS: NovoLOG Insulin Flexpen SUBQ SCH ×4 (05:41→20:40)
--- NOTE | 2017-02-27 07:45 | Consultation ---
DATE OF CONSULTATION: 02/26/2017 CARDIOLOGY CONSULTATION CONSULTING PHYSICIAN: James Almonte M.D. REFERRING PHYSICIAN: Merissa Mac M.D. REASON FOR REFERRAL: Shortness of breath. HISTORY OF PRESENT ILLNESS: This is an elderly female, who has been admitted to the hospital because of her shortness of breath, a gradual onset since the past three or four months and gotten worse recently. She has seen the physician who has prescribed her some diuretics including some blood pressure medication, but she has not felt any better and she has shortness of breath on exertion. She has two-pillow orthopnea. No PND episodes. No pain, pressure, or tightness. She has occasional dizziness on standing. No heart pain or palpitations. PAST MEDICAL HISTORY: Positive for diabetes and high blood pressure. No history of heart attack. No cancer, but she has had a stroke for 27 years. No hepatitis. No tuberculosis. No asthma or emphysema. No ulcers. She does have a history of gastroesophageal reflux disease. No kidney problems, liver problems, thyroid problems, or anemia. She does have arthritis. She has blood clots in her legs and she is on blood thinners at the present time. No other medical issues. SOCIAL HISTORY: She does not smoke and never did. Does not drink and never did. She lives at home. She has . REVIEW OF SYSTEMS: Gastrointestinal: She denies any nausea, vomiting, diarrhea, or constipation. Genitourinary: Negative. Pulmonary: Negative. Constitutional: Negative. Neurologic: Numbness and tingling in both her bilateral legs. PHYSICAL EXAMINATION: GENERAL: Shows to be an elderly female, in no apparent respiratory distress. NECK: Supple. No jugular venous distention is noted. LUNGS: Appear to be clear to auscultation and percussion. CARDIAC: S1 is normal. S2 is normal. Regular rate and rhythm. No heaves, thrills, or gallops noted. ABDOMEN: Soft and obese. Positive bowel sounds. EXTREMITIES: There is trace edema of the lower extremities. NEUROLOGIC: She is awake, alert, responsive, and in no apparent respiratory distress. LABORATORY DATA: White count of 7.2, hemoglobin 11, and platelet count of 205,000. Sodium is 146, potassium 3.8, chloride 99, bicarbonate 31, and BUN of 44. Creatinine 1.6. Glucose of 124. Of note, blood sugar was 178 yesterday and creatiinine was 1.9, now down to 1.7. ProBNP is only 81. She states her cardiac enzymes, troponins are negative and albumin is 4.1. INR is 2.7. Urinalysis appears fairly unremarkable. A chest x-ray performed today shows basically cardiomegaly and hiatal hernia. Lung sounds poor at the bases, otherwise remain clear. An echocardiogram has been performed that shows normal left ventricular systolic function and ejection fraction 55%. No significant valvular regurgitation. Pulmonary artery systolic pressure is 59 suggestive of pulmonary hypertension. She has had also venous duplex of the lower extremities. It shows patent on the right side. No evidence of thrombus. The left shows chronic recanalized thrombus in the common femoral vein, the popliteal vein anteriorly to superficial veins are noted. This patient's telemetry showed sinus rhythm and EKG showed normal sinus rhythm, left ortega axis. No ST or T wave abnormalities. ASSESSMENT AND PLAN: 1. Exertional dyspnea. 2. Peripheral edema. 3. Deep venous thrombosis recently. 4. Obesity. 5. Snoring. 6. Diabetes. 7. Hypertension. PLAN: Dr. Mac, this patient was seen in cardiac consultation. This patient's blood pressure at this time appears to be well controlled with readings in the 105/68 to 130/88 range. The patient's pulse is 71 to 83 and saturations on room air are 94%. Her chest x-ray is not suggestive of heart failure and ProBNP was not suggestive of heart failure. However, she has pulmonary hypertension, the etiology of which should be worked up. There is no left ventricular failure to suggest a right heart failure, therefore, this may be related to pulmonary issue. Repeat EKG and cardiac enzymes are ordered for tomorrow. Consider V/Q scan to rule out chronic thromboemboli and/or CT pulmonary angiography to exclude the right heart failure as a cause of the patient's edema. James Almonte M.D. DR: BRANDON JOB#: [id number] CC:
[2017-02-27 07:58] LABS: INR 2.8 (0.9-1.1); PROTHROMBIN TIME 29.2 SEC (9.30-11.50)
[2017-02-27 08:00] VITALS: BP 121/80
[2017-02-27 08:22] LABS: TROPONIN I < 0.30 ng/mL (<=0.30)
--- NOTE | 2017-02-27 09:34 | Diagnostic Imaging Report ---
Indications: Elevated renal function tests Technique: Transabdominal real-time grayscale and duplex Doppler imaging of the kidneys, retroperitoneum, and urinary bladder was performed Findings: Comparison: None Right kidney measures 10.2 cm in length. Normal cortical thickness. Suggestion mildly increased cortical echogenicity.. No stones, other focal lesions, hydronephrosis, or obvious perinephric abnormalities. Left kidney measures 9.3 cm in length. Normal cortical thickness. Suggestion mildly increased cortical echogenicity.. Contains several small circumscribed hyperechoic cortical foci. No stones, other focal lesions, hydronephrosis, or obvious perinephric abnormalities. The intrahepatic portion of inferior vena cava is patent and normal caliber. The urinary bladder is partially distended with apparent mural thickening. IMPRESSION: Mildly increased renal cortical echogenicity suggests medical renal disease, nonspecific Small left renal cortical cysts Thickening of urinary bladder wall--underdistention versus hypertrophy versus cystitis
--- NOTE | 2017-02-27 11:02 | Consultation ---
Consult Note Consult Note asked to eval for renal failure and electrolyte imbalances- 81-year-old female presents ED for evaluation. Project Management Specialist at bedside states that patient is complaining of shortness of breath times one week also complaining of bilateral leg pain and swelling. Has history of DVT. Currently on blood thinners. Patient denies any chest pain. No shortness of breath while at rest and when walking. Patient states she takes "water pills" for the swelling in her legs. No other aggravating or relieving factors. Denies any other associated symptom Allergies: BENAZEPRIL (Unverified Allergy, Unknown, 02/21/17) CODEINE (Unverified Allergy, Unknown, 02/21/17) PENICILLINS (Unverified Allergy, Unknown, 02/21/17) Uncoded Allergies: pcn (Allergy, Mild, sick, 10/17/12) Patient History Past Medical History: HTN, CVA/TIA Hx Hypertension: Yes - PAROXYSMAL ATRIAL TACHYCARDIA Hx Diabetes: Yes - OBESITY Hx Cerebrovascular Accident: Yes Hx Vertigo: Yes Positive for diabetes and high blood pressure. No kidney problems, have arthritis. She has blood clots in her legs and she is on blood thinners at the present time. Interviewed, examined data reviewed Assessment/Plan status: Acute renal failure, likely due to over diuresis- Cr down 1.9 to 1.6 Possible CKD Hypo Kalemia Anemia HyperUrecemia Other: 1. Exertional dyspnea. 2. Peripheral edema. 3. Deep venous thrombosis recently. 4. Obesity. 5. Snoring. 6. Diabetes. 7. Hypertension. Plan: Check renal parameters- Monitor Lytes Echo Anemia blackwell optimize cardiac and pulm status ELIZABET NIETO Feb 27, 2017 11:02
--- NOTE | 2017-02-27 11:42 | Pulmonology Progress Note ---
Assessment/Plan Problems: (1) Peripheral edema (2) CHF (congestive heart failure) (3) ATN (acute tubular necrosis) (4) Chronic deep vein thrombosis (DVT) Assessment/Plan improving continue lasix check echo renal and cardio evaluation appreciated pt/ot dc planning Subjective ROS Limited/Unobtainable: No Constitutional: Reports: no symptoms Respiratory: Reports: no symptoms Allergies: Coded Allergies: BENAZEPRIL (Unverified Allergy, Unknown, 02/21/17) CODEINE (Unverified Allergy, Unknown, 02/21/17) PENICILLINS (Unverified Allergy, Unknown, 02/21/17) Uncoded Allergies: pcn (Allergy, Mild, sick, 10/17/12) Objective Last 24 Hour Vital Signs Date Time Temp Pulse Resp B/P Pulse Ox O2 Delivery O2 Flow Rate FiO2 02/27/17 10:33 98.2 02/27/17 09:31 98 121/80 02/27/17 08:00 102 02/27/17 08:00 98.2 98 20 121/80 99 Room Air 02/27/17 07:09 98 20 Room Air 21 02/27/17 04:04 100 02/27/17 04:00 98.4 95 20 132/82 96 Room Air 02/27/17 00:00 97.7 96 20 134/86 Room Air 02/27/17 00:00 91 02/26/17 20:00 83 20 137/70 Room Air 02/26/17 20:00 71 02/26/17 19:30 74 20 Room Air 21 02/26/17 16:00 77 02/26/17 15:19 98.0 70 18 117/71 94 Room Air 02/26/17 12:00 71 Intake and Output 02/26/17 02/27/17 19:00 07:00 Intake Total 790 ml Output Total 300 ml Balance 790 ml -300 ml Intake Oral 790 ml Output Urine Total 300 ml # Voids 4 General Appearance: WD/WN HEENT: normocephalic, atraumatic Respiratory/Chest: chest wall non-tender, lungs clear Breasts: no masses Cardiovascular: normal peripheral pulses Abdomen: normal bowel sounds, soft, non tender Genitourinary: normal external genitalia Neurologic/Psychiatric: bottom finisher II-XII grossly normal Lymphatic: no neck adenopathy Laboratory Tests 02/26/17 13:30: Urine Color Pale yellow, Urine Appearance Clear, Urine pH 7, Urine Specific [place] 1.005, Urine Protein Negative, Urine Glucose (UA) Negative, Urine Ketones Negative, Urine Occult Blood 1+H, Urine Nitrite Negative, Urine Bilirubin Negative, Urine Urobilinogen Normal, Urine Leukocyte Esterase Negative , Urine RBC 2-4H, Urine WBC 0-2, Urine Squamous Epithelial Cells ModerateH, Urine Bacteria Few, Urine Eosinophils None seen, Urine Random Sodium 90, Urine Potassium Timed 30 02/27/17 07:05: Prothrombin Time 29.2H, Prothromb Time International Ratio 2.8H, Troponin I < 0.30 Current Medications Medications (Trade) Dose Ordered Sig/Chaim Route PRN Reason Start Time Stop Time Status Last Admin Dose Admin Acetaminophen (Tylenol) 650 mg Q4H PRN ORAL Fever 02/25/17 16:00 03/27/17 15:59 Acetaminophen (Tylenol) 650 mg Q6H PRN ORAL Mild Pain/Temp > 100.5 02/26/17 13:30 03/28/17 13:29 02/27/17 09:34 Albuterol/ Ipratropium (DuoNeb 0.5-3(2.5)mg/3ml) 3 ml Q4H PRN HHN Shortness of Breath 02/25/17 16:00 03/02/17 15:59 Amlodipine Besylate (Norvasc) 10 mg DAILY ORAL 02/26/17 09:00 03/28/17 08:59 02/27/17 09:31 Atorvastatin Calcium (Lipitor) 10 mg BEDTIME ORAL 02/27/17 21:00 03/29/17 20:59 Dextrose (Dextrose 50%) STAT PRN IV Hypoglycemia 02/25/17 16:00 03/27/17 15:59 Furosemide (Lasix) 40 mg DAILY IV 02/28/17 09:00 03/30/17 08:59 Insulin Aspart (NovoLOG) BEFORE MEALS AND HS SUBQ 02/25/17 21:00 03/27/17 20:59 02/27/17 05:41 Ondansetron HCl (Zofran) 4 mg Q6H PRN IVP Nausea & Vomiting 02/25/17 16:00 03/27/17 15:59 Pantoprazole (Protonix) 40 mg BID ORAL 02/27/17 18:00 03/29/17 17:59 Polyethylene Glycol (Miralax) 17 gm DAILYPRN PRN ORAL Constipation 02/25/17 16:00 03/27/17 15:59 Potassium Chloride (K-Dur) 40 meq BID ORAL 02/27/17 18:00 03/29/17 17:59 Temazepam (Restoril) 15 mg HSPRN PRN ORAL Insomnia 02/25/17 16:00 03/04/17 15:59 Warfarin Sodium (Coumadin per pharmacy) 1 ea DAILY PRN MISC PER RX PROTOCOL 02/25/17 19:15 03/27/17 19:14 Warfarin Sodium (Coumadin) 3 mg COUMADIN ONCE ORAL 02/27/17 17:00 02/27/17 17:01 BEVERLEY JOE Feb 27, 2017 11:42
[2017-02-27 12:00] VITALS: BP 120/67
[2017-02-27] MEDS: Norco 5mg/325mg tab ORAL PRN (14:38)
[2017-02-27 16:00] VITALS: BP 126/75
--- NOTE | 2017-02-27 16:24 | Diagnostic Imaging Report ---
Indications: Right hip pain, no trauma Technique: Two views right hip Findings: Comparison: None. No fracture, dislocation, lytic destruction, periosteal reaction, surrounding soft tissue swelling, or other acute changes are demonstrated. No deformity, alignment abnormality, arthritic change, soft tissue calcification, or other chronic changes are demonstrated. IMPRESSION: Negative right hip series.
[2017-02-27] MEDS ORDERED: Warfarin Sodium 3mg ORAL ONE (17:00)
--- NOTE | 2017-02-27 18:14 | Cardiology Progress Note ---
Assessment/Plan Assessment/Plan 1. Exertional dyspnea. 2. Peripheral edema. 3. Deep venous thrombosis recently. 4. Obesity. 5. Snoring. 6. Diabetes. 7. Hypertension. duplex neg all trop neg no new ekg found echo normla ef pum htn hip an leg pain blackwell as per pmd v/q scan in am Subjective Cardiovascular: Reports: lightheadedness - min episode , Denies: chest pain Respiratory: Denies: shortness of breath Gastrointestinal/Abdominal: Denies: abdomen distended Subjective sever hip an leg pain after jumpign in bed due to sensation of falling Objective Last 24 Hour Vital Signs Date Time Temp Pulse Resp B/P Pulse Ox O2 Delivery O2 Flow Rate FiO2 02/27/17 16:00 98.2 84 20 126/75 98 Room Air 02/27/17 16:00 90 02/27/17 15:37 98.2 02/27/17 12:00 85 02/27/17 12:00 98.2 88 19 120/67 97 Room Air 02/27/17 10:33 98.2 02/27/17 09:31 98 121/80 02/27/17 08:00 102 02/27/17 08:00 98.2 98 20 121/80 99 Room Air 02/27/17 07:09 98 20 Room Air 21 02/27/17 04:04 100 02/27/17 04:00 98.4 95 20 132/82 96 Room Air 02/27/17 00:00 97.7 96 20 134/86 Room Air 02/27/17 00:00 91 02/26/17 20:00 83 20 137/70 Room Air 02/26/17 20:00 71 02/26/17 19:30 74 20 Room Air 21 General Appearance: no apparent distress, alert Neck: supple Cardiovascular: normal rate, regular rhythm Respiratory/Chest: lungs clear, normal breath sounds Abdomen: non tender, soft Extremities: other - bilaterla leg tenderness to touch Intake and Output 02/26/17 02/27/17 19:00 07:00 Intake Total 790 ml Output Total 300 ml Balance 790 ml -300 ml Intake Oral 790 ml Output Urine Total 300 ml # Voids 4 Laboratory Tests Test 02/27/17 07:05 Prothrombin Time 29.2 SEC (9.30-11.50) H Prothromb Time International Ratio 2.8 (0.9-1.1) H Troponin I < 0.30 ng/mL (<=0.30) BETTIE PIERRE Feb 27, 2017 18:14
[2017-02-27 20:00] VITALS: BP 120/72
[2017-02-28] VITALS: BP 137/71
[2017-02-28] MEDS: Norco 5mg/325mg tab ORAL PRN ×2 (01:52→08:08)
[2017-02-28 04:00] VITALS: BP 137/77
[2017-02-28] MEDS: NovoLOG Insulin Flexpen SUBQ SCH ×4 (05:51→21:20)
--- NOTE | 2017-02-28 07:34 | Cardiology Progress Note ---
Assessment/Plan Assessment/Plan 1. Exertional dyspnea. 2. Peripheral edema. 3. Deep venous thrombosis recently. 4. Obesity. 5. Snoring. 6. Diabetes. 7. Hypertension. 8. sever hip and leg pain acute duplex neg all trop neg no new ekg found echo normla ef pum htn hip an leg pain blackwell as per pmd v/q scan on hold consider ortho evaluation Subjective Cardiovascular: Denies: chest pain, lightheadedness Respiratory: Denies: shortness of breath Gastrointestinal/Abdominal: Denies: abdominal pain Subjective remains with sever hip an leg pain Objective Last 24 Hour Vital Signs Date Time Temp Pulse Resp B/P Pulse Ox O2 Delivery O2 Flow Rate FiO2 02/28/17 04:00 86 02/28/17 04:00 98.2 94 20 137/77 97 Room Air 21 02/28/17 00:00 90 02/28/17 00:00 96.6 85 20 137/71 97 Room Air 02/27/17 20:00 98.6 85 20 120/72 96 Room Air 21 02/27/17 20:00 84 02/27/17 19:33 80 20 Room Air 02/27/17 16:00 98.2 84 20 126/75 98 Room Air 02/27/17 16:00 90 02/27/17 15:37 98.2 02/27/17 12:00 85 02/27/17 12:00 98.2 88 19 120/67 97 Room Air 02/27/17 10:33 98.2 02/27/17 09:31 98 121/80 02/27/17 08:00 102 02/27/17 08:00 98.2 98 20 121/80 99 Room Air General Appearance: no apparent distress, alert, moderate distress - with any movment or touch of legs Cardiovascular: normal rate Respiratory/Chest: chest wall non-tender, lungs clear Abdomen: normal bowel sounds, non tender, soft Extremities: other - unalbe to touch due to pain Intake and Output 02/27/17 02/28/17 19:00 07:00 Intake Total 120 ml Balance 120 ml Intake Oral 120 ml # Voids 1 3 BETTIE PIERRE Feb 28, 2017 07:34
[2017-02-28 07:51] LABS: BASOPHILS % (AUTO) 0.2 % (0.0-2.0); EOSINOPHILS % (AUTO) 0.1 % (0.0-3.0); LYMPHOCYTES % (AUTO) 10.8 % (20.0-45.0); MEAN CORPUSCULAR HEMOGLOBIN 29.6 PG (27.0-31.0); MEAN CORPUSCULAR HGB CONC 31.8 G/DL (32.0-36.0); MEAN CORPUSCULAR VOLUME 93 FL (80-99); MEAN PLATELET VOLUME 6.5 FL (6.5-10.1); MONOCYTES % (AUTO) 6.6 % (1.0-10.0); NEUTROPHILS % (AUTO) 82.3 % (45.0-75.0); PLATELET COUNT 210 K/UL (150-450); WHITE BLOOD COUNT 11.5 K/UL (4.8-10.8)
[2017-02-28 08:00] VITALS: BP 126/72
[2017-02-28 08:04] LABS: INR 3.4 (0.9-1.1); PROTHROMBIN TIME 35.8 SEC (9.30-11.50)
[2017-02-28 08:12] LABS: ALANINE AMINOTRANSFERASE 13 U/L (3-33); ALBUMIN/GLOBULIN RATIO 0.8 (1.0-2.7); ANION GAP 11 (5-15); ASPARTATE AMINO TRANSFERASE 17 U/L (5-40); CALCIUM 9.5 mg/dL (8.6-10.2); CARBON DIOXIDE 31 mEQ/L (20-30); CHLORIDE 101 mEQ/L (98-107); CHOLESTEROL 126 mg/dL (< 200); CHOLESTEROL/HDL RATIO 1.4 (3.3-4.4); CREATININE 1.6 mg/dL (0.5-0.9); CRP QUANT 17.5 mg/dL (< 0.5); LDL CHOLESTEROL (CALC.) 28 mg/dL (60-99); MAGNESIUM 1.6 mg/dL (1.7-2.5); PHOSPHORUS 2.6 mg/dL (2.5-4.8); POTASSIUM 3.9 mEQ/L (3.4-4.9); SODIUM 143 mEQ/L (135-145); TOTAL PROTEIN 7.7 g/dL (6.6-8.7); URIC ACID 14.6 mg/dL (3.0-7.5)
[2017-02-28 08:14] LABS: FERRITIN 67 ng/mL (13-150)
[2017-02-28 08:15] LABS: HEMOLYSIS 10; IRON 16 ug/dL (37-145); TOTAL IRON BINDING CAPACITY 267 ug/dL (250-400)
--- NOTE | 2017-02-28 08:55 | General Progress Note ---
Assessment/Plan Status: stable - from renal stand Status Narrative Cr 1.6 Assessment/Plan status: Acute renal failure, likely due to over diuresis- Cr down 1.9 to 1.6 Possible CKD Hypo Kalemia Anemia- Low Iron HyperUrecemia Other: 1. Exertional dyspnea. 2. Peripheral edema. 3. Deep venous thrombosis recently. 4. Obesity. 5. Snoring. 6. Diabetes. 7. Hypertension. Plan: Check renal parameters- add allopurinol- Venofer Mag and K supp. as needed Monitor Lytes Echo Ej Fx 55% Anemia blackwell optimize cardiac and pulm status Subjective ROS Limited/Unobtainable: No Constitutional: Reports: malaise, weakness Allergies: Coded Allergies: BENAZEPRIL (Unverified Allergy, Unknown, 02/21/17) CODEINE (Unverified Allergy, Unknown, 02/21/17) PENICILLINS (Unverified Allergy, Unknown, 02/21/17) Uncoded Allergies: pcn (Allergy, Mild, sick, 10/17/12) Objective Last 24 Hour Vital Signs Date Time Temp Pulse Resp B/P Pulse Ox O2 Delivery O2 Flow Rate FiO2 02/28/17 08:17 92 128/59 02/28/17 08:00 97.2 81 19 126/72 95 Room Air 02/28/17 07:58 91 20 Room Air 02/28/17 07:25 98.2 02/28/17 04:00 86 02/28/17 04:00 98.2 94 20 137/77 97 Room Air 02/28/17 00:00 90 02/28/17 00:00 96.6 85 20 137/71 97 Room Air 02/27/17 20:00 98.6 85 20 120/72 96 Room Air 21 02/27/17 20:00 84 02/27/17 19:33 80 20 Room Air 02/27/17 16:00 98.2 84 20 126/75 98 Room Air 02/27/17 16:00 90 02/27/17 15:37 98.2 02/27/17 12:00 85 02/27/17 12:00 98.2 88 19 120/67 97 Room Air 02/27/17 09:31 98 121/80 Intake and Output 02/27/17 02/28/17 19:00 07:00 Intake Total 120 ml Balance 120 ml Intake Oral 120 ml # Voids 1 3 Laboratory Tests 02/28/17 07:10: White Blood Count 11.5H, Red Blood Count 3.60L, Hemoglobin 10.7L, Hematocrit 33.5L, Mean Corpuscular Volume 93, Mean Corpuscular Hemoglobin 29.6, Mean Corpuscular Hemoglobin Concent 31.8L, Red Cell Distribution Width 14.0, Platelet Count 210, Mean Platelet Volume 6.5, Neutrophils (%) (Auto) 82.3H, Lymphocytes (%) (Auto) 10.8L, Monocytes (%) (Auto) 6.6, Eosinophils (%) (Auto) 0.1, Basophils (%) (Auto) 0.2, Prothrombin Time 35.8H, Prothromb Time International Ratio 3.4H, Sodium Level 143, Potassium Level 3.9, Chloride Level 101, Carbon Dioxide Level 31H, Anion Gap 11, Blood Urea Nitrogen 38H, Creatinine 1.6H, Estimat Glomerular Filtration Rate , Glucose Level 238H, Hemoglobin A1c 7.0H, Uric Acid 14.6H, Calcium Level 9.5, Phosphorus Level 2.6, Magnesium Level 1.6L, Iron Level 16L, Total Iron Binding Capacity 267, Percent Iron Saturation 6L, Unsaturated Iron Binding 251, Ferritin 67, Total Bilirubin 1.0, Gamma Glutamyl Transpeptidase 22, Aspartate Amino Transf (AST/SGOT) 17, Alanine Aminotransferase (ALT/SGPT) 13, Alkaline Phosphatase 77, Total Creatine Kinase 154H, C-Reactive Protein, Quantitative 17.5H, Pro-B-Type Natriuretic Peptide 138, Total Protein 7.7, Albumin 3.5, Globulin 4.2, Albumin/Globulin Ratio 0.8L, Triglycerides Level 47, Cholesterol Level 126, LDL Cholesterol 28L, HDL Cholesterol 89H, Cholesterol/HDL Ratio 1.4L, Vitamin B12 Level 747, Folate [ Pending], Thyroid Stimulating Hormone (TSH) 1.060 Height (Feet): 5 Height (Inches): 6.00 Weight (Pounds): 213 General Appearance: no apparent distress Cardiovascular: normal rate Respiratory/Chest: decreased breath sounds Abdomen: soft ELIZABET NIETO Feb 28, 2017 08:55
[2017-02-28 12:00] VITALS: BP 112/66
[2017-02-28] MEDS ORDERED: HYDROmorphone 1mg/ml Carpuject IM PRN (12:00)
--- NOTE | 2017-02-28 12:15 | Neurology Progress Note ---
Interim History Interim History ROS Limited/Unobtainable: No Objective Physical Exam Last Vital Signs Date Time Temp Pulse Resp B/P Pulse Ox O2 Delivery O2 Flow Rate FiO2 02/28/17 09:07 98.2 02/28/17 08:17 92 128/59 02/28/17 08:00 19 95 Room Air 02/28/17 04:00 21 Laboratory Tests Test 02/28/17 07:10 White Blood Count 11.5 K/UL (4.8-10.8) H Red Blood Count 3.60 M/UL (4.20-5.40) L Hemoglobin 10.7 G/DL (12.0-16.0) L Hematocrit 33.5 % (37.0-47.0) L Mean Corpuscular Volume 93 FL (80-99) Mean Corpuscular Hemoglobin 29.6 PG (27.0-31.0) Mean Corpuscular Hemoglobin Concent 31.8 G/DL (32.0-36.0) L Red Cell Distribution Width 14.0 % (11.6-14.8) Platelet Count 210 K/UL (150-450) Mean Platelet Volume 6.5 FL (6.5-10.1) Neutrophils (%) (Auto) 82.3 % (45.0-75.0) H Lymphocytes (%) (Auto) 10.8 % (20.0-45.0) L Monocytes (%) (Auto) 6.6 % (1.0-10.0) Eosinophils (%) (Auto) 0.1 % (0.0-3.0) Basophils (%) (Auto) 0.2 % (0.0-2.0) Prothrombin Time 35.8 SEC (9.30-11.50) H Prothromb Time International Ratio 3.4 (0.9-1.1) H Sodium Level 143 mEQ/L (135-145) Potassium Level 3.9 mEQ/L (3.4-4.9) Chloride Level 101 mEQ/L (98-107) Carbon Dioxide Level 31 mEQ/L (20-30) H Anion Gap 11 (5-15) Blood Urea Nitrogen 38 mg/dL (7-23) H Creatinine 1.6 mg/dL (0.5-0.9) H Estimat Glomerular Filtration Rate mL/min (>60) Glucose Level 238 mg/dL (74-106) H Hemoglobin A1c 7.0 % (< 6.0) H Uric Acid 14.6 mg/dL (3.0-7.5) H Calcium Level 9.5 mg/dL (8.6-10.2) Phosphorus Level 2.6 mg/dL (2.5-4.8) Magnesium Level 1.6 mg/dL (1.7-2.5) L Iron Level 16 ug/dL (37-145) L Total Iron Binding Capacity 267 ug/dL (250-400) Percent Iron Saturation 6 % (15-50) L Unsaturated Iron Binding 251 ug/dL (112-346) Ferritin 67 ng/mL (13-150) Total Bilirubin 1.0 mg/dL (0.0-1.2) Gamma Glutamyl Transpeptidase 22 U/L (5-36) Aspartate Amino Transf (AST/SGOT) 17 U/L (5-40) Alanine Aminotransferase (ALT/SGPT) 13 U/L (3-33) Alkaline Phosphatase 77 U/L (35-104) Total Creatine Kinase 154 U/L (26-140) H C-Reactive Protein, Quantitative 17.5 mg/dL (< 0.5) H Pro-B-Type Natriuretic Peptide 138 pg/mL (0-450) Total Protein 7.7 g/dL (6.6-8.7) Albumin 3.5 g/dL (3.5-5.2) Globulin 4.2 g/dL Albumin/Globulin Ratio 0.8 (1.0-2.7) L Triglycerides Level 47 mg/dL (< 150) Cholesterol Level 126 mg/dL (< 200) LDL Cholesterol 28 mg/dL (60-99) L HDL Cholesterol 89 mg/dL (> 60) H Cholesterol/HDL Ratio 1.4 (3.3-4.4) L Vitamin B12 Level 747 pg/mL (211-946) Folate Pending Thyroid Stimulating Hormone (TSH) 1.060 uIU/mL (0.300-4.500) Impression/Recommendations Status: stable - from renal stand Recommendations #[id number] orthopedic eval pain mgmt NERY CARVER Feb 28, 2017 12:15
[2017-02-28 12:48] LABS: CKMB < 1.5 ng/mL (< 3.8)
--- NOTE | 2017-02-28 12:58 | Pulmonology Progress Note ---
Assessment/Plan Assessment/Plan ASSESSMENT exertional dyspnea CHF with mild diastolic dysfunction acute renal failure on CKD ( likely due to overdiuresis) moderate pulmonary HTn hx of DVT obesity HTN DM acute severe R hip and leg pain anemia iron deficiency PLAN OF CARE tele O2 HHN prn CXR negative venous Duplex BLE negative VQ scan pending clinically improved ECHO with EF 55% and RVSP fio 59 c/w moderate pulmonary HTN cardio follows diuresis renal parameters, I/O, lytes closely monitored creat trending down renal US c/w chronic renal disease ARF likely 2 to overdiuresis, on CKD BP management with CCB, optimize as needed BS management with SS of insulin pain management neuro eval appreciated neuro wants to Rule out colon polymyalgia rheumatica. Rule out acute osteoarthritis, rule out occult fracture pelvic or femur. neuro ordered additional imaging for w/up of severe R hip and leg pain as well as w/up for possible CVD anemia w/up with low iron and normal ferritin, Venofer x 1 today patient with hx of chronic DVT, on Coumadin, keep INR in therapeutic range, venous Duplex no acute DVT, but chronic recanalized thrombus LLE case discussed and evaluated by supervising physician Subjective Allergies: Coded Allergies: BENAZEPRIL (Unverified Allergy, Unknown, 02/21/17) CODEINE (Unverified Allergy, Unknown, 02/21/17) PENICILLINS (Unverified Allergy, Unknown, 02/21/17) Uncoded Allergies: pcn (Allergy, Mild, sick, 10/17/12) Subjective on RA sat stable no signs fo respiratory distress dyspnea improved no chest pain complaining of acute R hip and leg pain Objective Last 24 Hour Vital Signs Date Time Temp Pulse Resp B/P Pulse Ox O2 Delivery O2 Flow Rate FiO2 02/28/17 09:07 98.2 02/28/17 08:17 92 128/59 02/28/17 08:00 97.2 81 19 126/72 95 Room Air 02/28/17 07:58 91 20 Room Air 02/28/17 07:25 98.2 02/28/17 04:00 86 02/28/17 04:00 98.2 94 20 137/77 97 Room Air 21 02/28/17 00:00 90 02/28/17 00:00 96.6 85 20 137/71 97 Room Air 02/27/17 20:00 98.6 85 20 120/72 96 Room Air 21 02/27/17 20:00 84 02/27/17 19:33 80 20 Room Air 02/27/17 16:00 98.2 84 20 126/75 98 Room Air 02/27/17 16:00 90 Intake and Output 02/27/17 02/28/17 19:00 07:00 Intake Total 120 ml Balance 120 ml Intake Oral 120 ml # Voids 1 3 Objective General Appearance: WD/WN female obese, in NAD HEENT: normocephalic, atraumatic, EOMI, OP moist Respiratory/Chest: chest wall non-tender, lungs clear Cardiovascular: normal peripheral pulses, S1 S2, no g/m/r Abdomen: normal bowel sounds, soft, non tender, obese Genitourinary: normal external genitalia Neurologic/Psychiatric: 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 Complete 02/25/17 23:30 Rectum VRE Culture - Final NO VANCOMYCIN RESISTANT ENTEROCOCCUS ... Complete Laboratory Tests 02/28/17 07:10: White Blood Count 11.5H, Red Blood Count 3.60L, Hemoglobin 10.7L, Hematocrit 33.5L, Mean Corpuscular Volume 93, Mean Corpuscular Hemoglobin 29.6, Mean Corpuscular Hemoglobin Concent 31.8L, Red Cell Distribution Width 14.0, Platelet Count 210, Mean Platelet Volume 6.5, Neutrophils (%) (Auto) 82.3H, Lymphocytes (%) (Auto) 10.8L, Monocytes (%) (Auto) 6.6, Eosinophils (%) (Auto) 0.1, Basophils (%) (Auto) 0.2, Erythrocyte Sedimentation Rate [Pending], Prothrombin Time 35.8H, Prothromb Time International Ratio 3.4H, Sodium Level 143, Potassium Level 3.9, Chloride Level 101, Carbon Dioxide Level 31H, Anion Gap 11, Blood Urea Nitrogen 38H, Creatinine 1.6H, Estimat Glomerular Filtration Rate , Glucose Level 238H, Hemoglobin A1c 7.0H, Uric Acid 14.6H, Calcium Level 9.5, Phosphorus Level 2.6, Magnesium Level 1.6L, Iron Level 16L, Total Iron Binding Capacity 267, Percent Iron Saturation 6L, Unsaturated Iron Binding 251, Ferritin 67, Total Bilirubin 1.0, Gamma Glutamyl Transpeptidase 22, Aspartate Amino Transf (AST/SGOT) 17, Alanine Aminotransferase (ALT/SGPT) 13, Alkaline Phosphatase 77, Total Creatine Kinase [Pending], Creatine Kinase MB [Pending], C -Reactive Protein, Quantitative 17.5H, Pro-B-Type Natriuretic Peptide 138, Total Protein 7.7, Albumin 3.5, Globulin 4.2, Albumin/Globulin Ratio 0.8L, Triglycerides Level 47, Cholesterol Level 126, LDL Cholesterol 28L, HDL Cholesterol 89H, Cholesterol/HDL Ratio 1.4L, Vitamin B12 Level 747, Folate [ Pending], Thyroid Stimulating Hormone (TSH) 1.060, Rheumatoid Factor Screen [ Pending], Anti-Nuclear Antibody Screen [Pending] Current Medications Medications (Trade) Dose Ordered Sig/Chaim Route PRN Reason Start Time Stop Time Status Last Admin Dose Admin Acetaminophen (Tylenol) 650 mg Q4H PRN ORAL Fever 02/25/17 16:00 03/27/17 15:59 Acetaminophen (Tylenol) 650 mg Q6H PRN ORAL Mild Pain/Temp > 100.5 02/26/17 13:30 03/28/17 13:29 02/28/17 06:26 Acetaminophen/ Hydrocodone Bitart ([place] 5/325) 1 tab Q6H PRN ORAL Moderate Pain (Pain Scale 4-6) 02/27/17 14:00 03/06/17 13:59 02/28/17 08:08 Albuterol/ Ipratropium (DuoNeb 0.5-3(2.5)mg/3ml) 3 ml Q4H PRN HHN Shortness of Breath 02/25/17 16:00 03/02/17 15:59 Allopurinol (Allopurinol) 300 mg DAILY ORAL 02/28/17 09:00 03/30/17 08:59 02/28/17 09:50 Amlodipine Besylate (Norvasc) 10 mg DAILY ORAL 02/26/17 09:00 03/28/17 08:59 02/28/17 08:17 Atorvastatin Calcium (Lipitor) 10 mg BEDTIME ORAL 02/27/17 21:00 03/29/17 20:59 02/27/17 20:39 Dextrose (Dextrose 50%) STAT PRN IV Hypoglycemia 02/25/17 16:00 03/27/17 15:59 Furosemide (Lasix) 40 mg DAILY IV 02/28/17 09:00 03/30/17 08:59 02/28/17 08:16 Hydromorphone HCl (Dilaudid) 0.5 mg Q4H PRN IM For Pain 02/28/17 12:00 03/07/17 11:59 UNV Insulin Aspart (NovoLOG) BEFORE MEALS AND HS SUBQ 02/25/17 21:00 03/27/17 20:59 02/28/17 11:37 Iron Sucrose/ Sodium Chloride (Venofer/Sodium Chloride) 120 ml @ 240 mls/hr ONCE ONCE IVPB 02/28/17 21:00 02/28/17 21:29 Ondansetron HCl (Zofran) 4 mg Q6H PRN IVP Nausea & Vomiting 02/25/17 16:00 03/27/17 15:59 Pantoprazole (Protonix) 40 mg BID ORAL 02/27/17 18:00 03/29/17 17:59 02/28/17 08:16 Polyethylene Glycol (Miralax) 17 gm DAILYPRN PRN ORAL Constipation 02/25/17 16:00 03/27/17 15:59 Potassium Chloride 40 meq 40 meq DAILY ORAL 03/01/17 09:00 03/31/17 08:59 Temazepam (Restoril) 15 mg HSPRN PRN ORAL Insomnia 02/25/17 16:00 03/04/17 15:59 Warfarin Sodium (Coumadin per pharmacy) 1 ea DAILY PRN MISC PER RX PROTOCOL 02/25/17 19:15 03/27/17 19:14 Mark ([facility])Sugey NP Feb 28, 2017 12:58
[2017-02-28] MEDS ORDERED: Iron Sucrose 200 MG in NS 110 ML IVPB ONE ×2 (14:00→21:00)
[2017-02-28] MEDS ORDERED: WARFARIN SODIUM4 MG ORAL (15:21)
[2017-02-28 16:00] VITALS: BP 144/77
--- NOTE | 2017-02-28 16:39 | Diagnostic Imaging Report ---
Indication: PAIN Technique: 3 views of the left ankle Comparison: None Findings: No Acute fractures. No dislocations. Bones are osteoporotic. Joint spaces are preserved. There are vascular calcifications and numerous phleboliths. There are small plantar and calcaneal spurs Impression: No acute bony trauma
[2017-02-28] MEDS: Hydromorphone 0.5mg/0.5ml inj IVP PRN ×2 (17:14→21:21)
--- NOTE | 2017-02-28 19:00 | Consultation ---
DATE OF CONSULTATION: 02/28/2017 NEUROLOGICAL CONSULTATION REQUESTING PHYSICIAN: Merissa Mac M.D. HISTORY OF PRESENT ILLNESS: This is an 81-year-old female, seen in neurological consultation to evaluate intractable pain in her both lower extremities predominantly in the right. The patient informed me that she was able to ambulate with walker until the day of admission, then she developed severe pain pointing to her right thigh and hip. She also noted to have swelling in her right ankle. On admission, she was complaining of shortness of breath with evidence of peripheral edema. She was hospitalized. Imaging studies included x-ray of right hip, which was negative. Venous duplex of both lower extremities, there was a chronic thrombi in the left lower extremity. No evidence of acute event. Her laboratory work included CBC study, hemoglobin 10.1 and hematocrit 31.6. Latest coagulation panel, INR 3.4 and PT 35.6. Urinalysis unremarkable Chemistry panel with elevated BUN of 48, creatinine 1.9, and potassium 2.8. Normal TSH. B12 and unremarkable lipid panel, but elevated CRP 17.5. CK is 54. Uric acid of 15.0. Blood sugar 228. Hemoglobin A1c was 7.0. Repeat BUN of 38 creatinine 1.6. PAST MEDICAL HISTORY: The patient has a history of DVT right lower extremity. She has a history of lumbar spinal stenosis. She has morbid obesity, hypertension, and diabetes. Most recent admission to emergency room on 02/21/2017 included diagnosis of congestive heart failure and increasing pedal edema. This is with walking. She has history of paroxysmal atrial tachycardia. MEDICATIONS: Her current treatment included warfarin, , Tylenol p.r.n., [place] p.r.n., amlodipine, Lipitor, furosemide, Zofran, Protonix, MiraLax, potassium supplement, and Restoril. ALLERGIES: Benazepril, codeine, and penicillin. SOCIAL HISTORY: She lives with her family. No alcohol or drug abuse. Nonsmoker. FAMILY HISTORY: Noncontributory. REVIEW OF SYMPTOMS: Complaints of severe intractable pain in her predominantly right hip and thigh region, but also right gluteus, and during examination, pointed to her severe pain in her dorsal aspect of right foot. The patient noticed lesser degree pain in the left lower extremity. Denies headache or dizziness. Denies chest pain or palpitations. No respiratory difficulties. No abdominal pain or discomfort. No urine or bowel incontinence. PHYSICAL EXAMINATION: GENERAL: A well-developed, moderately obese female, not in acute distress, lying comfortably in bed with flexion in the right knee and right leg being everted. On attempt to move right leg, she was screaming from pain pointing different sites, but predominantly right hip region and right gluteal region. During examination, touch to dorsum of right foot, which also cause her screaming, she was screaming. There was no deformities noted. Peripheral pulses 1+ symmetric. There is 1+ pitting edema both feet more on the right. MENTAL STATUS: She is alert and oriented x3. Poor historian, but able to provide with medical information. She was able to follow commands. She obviously is being discomfort when trying to move or to be examined. CRANIAL NERVE II: Pupils both responding to light and accommodation. Extraocular movements intact. No nystagmus. CRANIAL NERVE V: Normal corneal responses. CRANIAL NERVE VII: No facial asymmetry. CRANIAL NERVE VIII: Normal hearing. CRANIAL NERVE IX THROUGH XII: Normal limits. MOTOR EXAMINATION: Normal muscle tone and strength in both upper extremities. The patient was reluctant to flex for left leg, but with assistance, she was able to left leg flexed, although when trying to lift left leg, she was also screaming from pain in her hips region. Right leg flexed, everted, palpable. There was acute pain when palpated in a right gluteus, right hip region, and right foot. No muscle wasting. No involuntary movement noted. Deep tendon reflexes 2+ bilaterally including both knee jerks, and 1+ both ankle jerks. Plantar responses flexor. No pathological responses noted. Sensory examination normal to pin stimulation both upper and lower extremities. The patient was unable sit or stand. IMPRESSION: 1. This is a 81-year-old female with a new onset of intractable pain predominantly proximal right lower extremity and right foot with no clear evidence of neurological deficit. Rule out colon polymyalgia rheumatica. Rule out acute osteoarthritis, rule out occult fracture pelvic or femur. 2. Gout. 3. 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 4. Renal insufficiency. 5. Anticoagulation. 6. History of spinal stenosis. 7. Hypertension. 8. Diabetes, type 2. RECOMMENDATIONS: Rheumatology evaluation. X-rays of pelvic bones, femur, and right foot. Start on proper pain management. If necessary, proceed with orthopedic evaluation. Sp Leslie M.D. DR: PHYLLIS JOB#: [id number] CC:
[2017-02-28 20:00] VITALS: BP 133/79
[2017-03-01] VITALS: BP_SYST 133; BP_SYST 155; BP_DIAS 79; BP_DIAS 87
[2017-03-01] MEDS: Norco 5mg/325mg tab ORAL PRN (00:03)
[2017-03-01 04:53] VITALS: BP 149/87
[2017-03-01] MEDS: NovoLOG Insulin Flexpen SUBQ SCH ×4 (06:15→20:21)
[2017-03-01 07:33] VITALS: BP 134/70
[2017-03-01] MEDS: Hydromorphone 0.5mg/0.5ml inj IVP PRN (08:01)
--- NOTE | 2017-03-01 09:33 | Cardiology Progress Note ---
Assessment/Plan Assessment/Plan 1. Exertional dyspnea. 2. Peripheral edema. 3. Deep venous thrombosis recently. 4. Obesity. 5. Snoring. 6. Diabetes. 7. Hypertension. 8. sever hip and leg pain acute 9. SVT duplex neg all trop neg no new ekg found echo normla ef pum htn hip an leg pain blackwell as per pmd tele showed redcurrent bout of svt will svt will start on bb Subjective Cardiovascular: Denies: chest pain Respiratory: Reports: SOB with excertion Gastrointestinal/Abdominal: Denies: abdominal pain Genitourinary: Denies: burning Subjective remains with sever hip an leg pain Objective Last 24 Hour Vital Signs Date Time Temp Pulse Resp B/P Pulse Ox O2 Delivery O2 Flow Rate FiO2 03/01/17 08:05 93 134/70 03/01/17 07:33 97.3 93 18 134/70 96 Room Air 03/01/17 07:25 98 20 Room Air 03/01/17 04:53 98.4 97 18 149/87 95 Room Air 03/01/17 04:00 91 03/01/17 01:06 98.2 03/01/17 00:00 98.6 100 24 155/87 98 Room Air 03/01/17 00:00 98.2 80 24 133/79 94 Room Air 03/01/17 00:00 99 02/28/17 20:00 98.2 80 24 133/79 94 Room Air 02/28/17 20:00 90 02/28/17 17:44 97.0 02/28/17 16:00 97.0 94 20 144/77 96 Room Air 02/28/17 16:00 96 02/28/17 12:00 91 02/28/17 12:00 97.7 87 21 112/66 99 Room Air General Appearance: alert, moderate distress - with attempt at movement Neck: supple Cardiovascular: normal rate, regular rhythm Respiratory/Chest: lungs clear, normal breath sounds Abdomen: non tender, soft Extremities: no swelling Intake and Output 02/28/17 03/01/17 19:00 07:00 Intake Total 120 ml Balance 120 ml IV Total 120 ml # Voids 5 BETTIE PIERRE Mar 01, 2017 09:33
[2017-03-01] MEDS: Metoprolol 25mg tab ORAL SCH ×2 (09:42→20:22)
[2017-03-01] MEDS ORDERED: HYDROmorphone 1mg/NS 50ml IVPB 50 ML IVPB PRN (10:30)
[2017-03-01] MEDS ORDERED: Hydromorphone 0.5mg/0.5ml inj IVP ONE ×2 (10:30→10:45)
[2017-03-01 11:15] VITALS: BP 127/74
--- NOTE | 2017-03-01 11:27 | Pulmonology Progress Note ---
Assessment/Plan Assessment/Plan ASSESSMENT exertional dyspnea CHF with mild diastolic dysfunction acute renal failure on CKD ( likely due to overdiuresis) moderate pulmonary HTN frequent PVC hx of DVT obesity HTN DM acute severe R hip and leg pain anemia iron deficiency PLAN OF CARE tele O2 HHN prn CXR negative venous Duplex BLE negative VQ scan pending clinically improved respiratory status ECHO with EF 55% and RVSP fio 59 c/w moderate pulmonary HTN cardio follows diuresis renal parameters, I/O, lytes closely monitored creat slwoly trending down renal US c/w chronic renal disease ARF likely 2 to overdiuresis, on CKD BP management with CCB, optimize as needed BS management with SS of insulin pain management , increase Dilaudid dose to 1 mg neuro eval appreciated for acute R hip pain: Rule out polymyalgia rheumatica. Rule out acute osteoarthritis, rule out occult fracture pelvic or femur. neuro ordered additional imaging for w/up of severe R hip and leg pain X ray R ankle no fracture X ray pelvis and femur results pending as well as w/up for possible collagen vascular disease elevated ESR ortho eval-called and discussed, ordered MRI pelvis and R hip, will see patient on Friday pain specialist eval anemia w/up with low iron and normal ferritin, s/p Venofer x 1 02/28 patient with hx of chronic DVT, on Coumadin, keep INR in therapeutic range, venous Duplex no acute DVT, but chronic recanalized thrombus LLE case discussed and evaluated by supervising physician Subjective Allergies: Coded Allergies: BENAZEPRIL (Unverified Allergy, Unknown, 02/21/17) CODEINE (Unverified Allergy, Unknown, 02/21/17) PENICILLINS (Unverified Allergy, Unknown, 02/21/17) Uncoded Allergies: pcn (Allergy, Mild, sick, 10/17/12) Subjective on RA sat stable no signs fo respiratory distress dyspnea improved no chest pain complaining of acute R hip and leg pain x 2 days tele with frequent PVC Objective Last 24 Hour Vital Signs Date Time Temp Pulse Resp B/P Pulse Ox O2 Delivery O2 Flow Rate FiO2 03/01/17 11:15 97.6 84 18 127/74 97 Room Air 03/01/17 09:42 93 134/70 03/01/17 08:05 93 134/70 03/01/17 07:33 97.3 93 18 134/70 96 Room Air 03/01/17 07:25 98 20 Room Air 03/01/17 04:53 98.4 97 18 149/87 95 Room Air 03/01/17 04:00 91 03/01/17 01:06 98.2 03/01/17 00:00 98.6 100 24 155/87 98 Room Air 03/01/17 00:00 98.2 80 24 133/79 94 Room Air 03/01/17 00:00 99 02/28/17 20:00 98.2 80 24 133/79 94 Room Air 02/28/17 20:00 90 02/28/17 17:44 97.0 02/28/17 16:00 97.0 94 20 144/77 96 Room Air 02/28/17 16:00 96 02/28/17 12:00 91 02/28/17 12:00 97.7 87 21 112/66 99 Room Air Intake and Output 02/28/17 03/01/17 19:00 07:00 Intake Total 120 ml Balance 120 ml IV Total 120 ml # Voids 5 Objective General Appearance: WD/WN female obese, in NAD HEENT: normocephalic, atraumatic, EOMI, OP moist Respiratory/Chest: chest wall non-tender, lungs clear Cardiovascular: normal peripheral pulses, S1 S2, no g/m/r, SR with frequent PVC Abdomen: normal bowel sounds, soft, non tender, obese Genitourinary: normal external genitalia Neurologic/Psychiatric: shank maker II-XII grossly normal, no gross focal , extreme difficulties with ROM RLE Current Medications Medications (Trade) Dose Ordered Sig/Chaim Route PRN Reason Start Time Stop Time Status Last Admin Dose Admin Acetaminophen (Tylenol) 650 mg Q4H PRN ORAL Fever 02/25/17 16:00 03/27/17 15:59 Acetaminophen (Tylenol) 650 mg Q6H PRN ORAL Mild Pain/Temp > 100.5 02/26/17 13:30 03/28/17 13:29 02/28/17 06:26 Acetaminophen/ Hydrocodone Bitart ([place] 5/325) 1 tab Q6H PRN ORAL Moderate Pain (Pain Scale 4-6) 02/27/17 14:00 03/06/17 13:59 03/01/17 00:03 Albuterol/ Ipratropium (DuoNeb 0.5-3(2.5)mg/3ml) 3 ml Q4H PRN HHN Shortness of Breath 02/25/17 16:00 03/02/17 15:59 Allopurinol (Allopurinol) 300 mg DAILY ORAL 02/28/17 09:00 03/30/17 08:59 03/01/17 08:04 Amlodipine Besylate (Norvasc) 10 mg DAILY ORAL 02/26/17 09:00 03/28/17 08:59 03/01/17 08:05 Atorvastatin Calcium (Lipitor) 10 mg BEDTIME ORAL 02/27/17 21:00 03/29/17 20:59 02/28/17 21:18 Dextrose (Dextrose 50%) STAT PRN IV Hypoglycemia 02/25/17 16:00 03/27/17 15:59 Furosemide (Lasix) 40 mg DAILY IV 02/28/17 09:00 03/30/17 08:59 03/01/17 08:05 Hydromorphone HCl (Dilaudid) 1 mg Q4H PRN IVP Severe Breakthru Pain (>7) 03/01/17 10:45 03/08/17 10:44 Insulin Aspart (NovoLOG) BEFORE MEALS AND HS SUBQ 02/25/17 21:00 03/27/17 20:59 03/01/17 06:15 Metoprolol Tartrate (Lopressor) 25 mg Q12HR ORAL 03/01/17 09:45 03/31/17 09:44 03/01/17 09:42 Ondansetron HCl (Zofran) 4 mg Q6H PRN IVP Nausea & Vomiting 02/25/17 16:00 03/27/17 15:59 Pantoprazole (Protonix) 40 mg BID ORAL 02/27/17 18:00 03/29/17 17:59 03/01/17 08:04 Polyethylene Glycol (Miralax) 17 gm DAILYPRN PRN ORAL Constipation 02/25/17 16:00 03/27/17 15:59 Potassium Chloride (K-Dur) 40 meq DAILY ORAL 03/01/17 09:00 03/31/17 08:59 03/01/17 08:04 Temazepam (Restoril) 15 mg HSPRN PRN ORAL Insomnia 02/25/17 16:00 03/04/17 15:59 Warfarin Sodium (Coumadin per pharmacy) 1 ea DAILY PRN MISC PER RX PROTOCOL 02/25/17 19:15 03/27/17 19:14 Mark ([facility])Sugey NP Mar 01, 2017 11:27
[2017-03-01] MEDS ORDERED: DuoNeb 0.5-3(2.5)mg/3ml neb HHN PRN (12:00)
[2017-03-01 12:03] LABS: BASOPHILS % (AUTO) 0.3 % (0.0-2.0); EOSINOPHILS % (AUTO) 0.1 % (0.0-3.0); LYMPHOCYTES % (AUTO) 10.6 % (20.0-45.0); MEAN CORPUSCULAR HEMOGLOBIN 30.7 PG (27.0-31.0); MEAN CORPUSCULAR VOLUME 90 FL (80-99); MONOCYTES % (AUTO) 6.3 % (1.0-10.0); NEUTROPHILS % (AUTO) 82.7 % (45.0-75.0); PLATELET COUNT 218 K/UL (150-450); RED BLOOD COUNT 3.55 M/UL (4.20-5.40); RED CELL DISTRIBUTION WIDTH 13.4 % (11.6-14.8)
--- NOTE | 2017-03-01 12:09 | General Progress Note ---
Assessment/Plan Status: stable Assessment/Plan status: Acute renal failure, likely due to over diuresis- Cr down 1.9 to 1.6 Possible CKD Hypo Kalemia Anemia- Low Iron HyperUrecemia Other: 1. Exertional dyspnea. 2. Peripheral edema. 3. Deep venous thrombosis recently. 4. Obesity. 5. Snoring. 6. Diabetes. 7. Hypertension. Plan: todays lab pending Check renal parameters- add allopurinol- Venofer Mag and K supp. as needed Monitor Lytes Echo Ej Fx 55% Anemia blackwell optimize cardiac and pulm status Subjective ROS Limited/Unobtainable: No Constitutional: Reports: malaise Allergies: Coded Allergies: BENAZEPRIL (Unverified Allergy, Unknown, 02/21/17) CODEINE (Unverified Allergy, Unknown, 02/21/17) PENICILLINS (Unverified Allergy, Unknown, 02/21/17) Uncoded Allergies: pcn (Allergy, Mild, sick, 10/17/12) Objective Last 24 Hour Vital Signs Date Time Temp Pulse Resp B/P Pulse Ox O2 Delivery O2 Flow Rate FiO2 03/01/17 11:15 97.6 84 18 127/74 97 Room Air 03/01/17 09:42 93 134/70 03/01/17 08:05 93 134/70 03/01/17 07:33 97.3 93 18 134/70 96 Room Air 03/01/17 07:25 98 20 Room Air 03/01/17 04:53 98.4 97 18 149/87 95 Room Air 03/01/17 04:00 91 03/01/17 01:06 98.2 03/01/17 00:00 98.6 100 24 155/87 98 Room Air 03/01/17 00:00 98.2 80 24 133/79 94 Room Air 03/01/17 00:00 99 02/28/17 20:00 98.2 80 24 133/79 94 Room Air 02/28/17 20:00 90 02/28/17 17:44 97.0 02/28/17 16:00 97.0 94 20 144/77 96 Room Air 02/28/17 16:00 96 Intake and Output 02/28/17 03/01/17 19:00 07:00 Intake Total 120 ml Balance 120 ml IV Total 120 ml # Voids 5 Laboratory Tests 03/01/17 11:20: White Blood Count 13.0H, Red Blood Count 3.55L, Hemoglobin 10.9L, Hematocrit 32.0L, Mean Corpuscular Volume 90, Mean Corpuscular Hemoglobin 30.7, Mean Corpuscular Hemoglobin Concent 34.0, Red Cell Distribution Width 13.4, Platelet Count 218, Mean Platelet Volume 7.0, Neutrophils (%) (Auto) 82.7H, Lymphocytes ( %) (Auto) 10.6L, Monocytes (%) (Auto) 6.3, Eosinophils (%) (Auto) 0.1, Basophils (%) (Auto) 0.3, Sodium Level [Pending], Potassium Level [Pending], Chloride Level [Pending], Carbon Dioxide Level [Pending], Blood Urea Nitrogen [ Pending], Creatinine [Pending], Estimat Glomerular Filtration Rate [Pending], Glucose Level [Pending], Calcium Level [Pending] Height (Feet): 5 Height (Inches): 6.00 Weight (Pounds): 213 General Appearance: no apparent distress, lethargic Objective other PE not changed ELIZABET NIETO Mar 01, 2017 12:09
[2017-03-01 12:21] LABS: ANION GAP 13 (5-15); CALCIUM 9.8 mg/dL (8.6-10.2); CARBON DIOXIDE 30 mEQ/L (20-30); CHLORIDE 103 mEQ/L (98-107); CREATININE 1.8 mg/dL (0.5-0.9); HEMOLYSIS 0; POTASSIUM 4.5 mEQ/L (3.4-4.9); SODIUM 146 mEQ/L (135-145)
--- NOTE | 2017-03-01 13:36 | Neurology Progress Note ---
Interim History Interim History ROS Limited/Unobtainable: No Complaints: severe intractable pain ,mainly with movement -R hip/thigh/flank area Events: sl better on opiates Objective Physical Exam Last Vital Signs Date Time Temp Pulse Resp B/P Pulse Ox O2 Delivery O2 Flow Rate FiO2 03/01/17 11:15 97.6 84 18 127/74 97 Room Air 02/28/17 04:00 21 Laboratory Tests Test 03/01/17 11:20 White Blood Count 13.0 K/UL (4.8-10.8) H Red Blood Count 3.55 M/UL (4.20-5.40) L Hemoglobin 10.9 G/DL (12.0-16.0) L Hematocrit 32.0 % (37.0-47.0) L Mean Corpuscular Volume 90 FL (80-99) Mean Corpuscular Hemoglobin 30.7 PG (27.0-31.0) Mean Corpuscular Hemoglobin Concent 34.0 G/DL (32.0-36.0) Red Cell Distribution Width 13.4 % (11.6-14.8) Platelet Count 218 K/UL (150-450) Mean Platelet Volume 7.0 FL (6.5-10.1) Neutrophils (%) (Auto) 82.7 % (45.0-75.0) H Lymphocytes (%) (Auto) 10.6 % (20.0-45.0) L Monocytes (%) (Auto) 6.3 % (1.0-10.0) Eosinophils (%) (Auto) 0.1 % (0.0-3.0) Basophils (%) (Auto) 0.3 % (0.0-2.0) Sodium Level 146 mEQ/L (135-145) H Potassium Level 4.5 mEQ/L (3.4-4.9) Chloride Level 103 mEQ/L (98-107) Carbon Dioxide Level 30 mEQ/L (20-30) Anion Gap 13 (5-15) Blood Urea Nitrogen 42 mg/dL (7-23) H Creatinine 1.8 mg/dL (0.5-0.9) H Estimat Glomerular Filtration Rate mL/min (>60) Glucose Level 200 mg/dL (74-106) H Calcium Level 9.8 mg/dL (8.6-10.2) General: well developed, no acute distress, other - morbid obesity Head: normocophalic, atraumatic Neck: no rigidity EENT: benign Neurologic Exam Mental Status: awake, alert, normal cognition, other - anxious Speech: normal speech, no dysarthia Language: normal language, no aphasia Cranial Nerve II: fundus normal, visual moses, no papilledema Cranial Nerves III, IV, : PERRLA, EOMI, pupils Cranial Nerve V: normal facial sensations, temporales function normal, masseters function normal, pterygoids function normal Cranial Nerve VII: no facial asymmetry, normal facial expressions Cranial Nerve VIII: normal hearing, no nystagmus Cranial Nerve IX: normal palate elevation, gag response Cranial Nerve X: no voice hoarseness Cranial Nerve XI: SCM symmetric, trapezii function normal Cranial Nerve XII: tongue midline, no tongue atrophy/fasciculations Motor System: normal muscle tone, no involuntary movement, no muscle wasting, other - very tender R upper thigh /hip screams whenin pain unable ti lift legs 2 /2pain Sensory: normal pinprick Coordination: normal finger to nose bilaterally Deep Tendon Reflexes: 0 ankle (L), 0 ankle (R), 0 bicep (L), 0 bicep (R), 0 brachioradialis (L), 0 brachioradialis (R), 0 knee (L), 0 knee (R), 0 tricep (L) , 0 tricep (R) Reflexes: mute plantar (L), mute plantar (R) Impression/Recommendations Problems: (1) intractable pain R hip/thigh/flank /gluteus area (2) poor pain tolerance (3) Morbid obesity (4) Peripheral edema (5) Renal insufficiency Status: stable Recommendations #[id number] orthopedic eval pain mgmt dilaudid 1mg q4 hr mri pelvis/hip pend NERY CARVER Mar 01, 2017 13:36
--- NOTE | 2017-03-01 13:41 | Neurology Progress Note ---
Interim History Interim History ROS Limited/Unobtainable: No Complaints: severe intractable pain ,mainly with movement -R hip/thigh/flank area Events: sl better on opiates Objective Physical Exam Last Vital Signs Date Time Temp Pulse Resp B/P Pulse Ox O2 Delivery O2 Flow Rate FiO2 03/01/17 11:15 97.6 84 18 127/74 97 Room Air 02/28/17 04:00 21 Laboratory Tests Test 03/01/17 11:20 White Blood Count 13.0 K/UL (4.8-10.8) H Red Blood Count 3.55 M/UL (4.20-5.40) L Hemoglobin 10.9 G/DL (12.0-16.0) L Hematocrit 32.0 % (37.0-47.0) L Mean Corpuscular Volume 90 FL (80-99) Mean Corpuscular Hemoglobin 30.7 PG (27.0-31.0) Mean Corpuscular Hemoglobin Concent 34.0 G/DL (32.0-36.0) Red Cell Distribution Width 13.4 % (11.6-14.8) Platelet Count 218 K/UL (150-450) Mean Platelet Volume 7.0 FL (6.5-10.1) Neutrophils (%) (Auto) 82.7 % (45.0-75.0) H Lymphocytes (%) (Auto) 10.6 % (20.0-45.0) L Monocytes (%) (Auto) 6.3 % (1.0-10.0) Eosinophils (%) (Auto) 0.1 % (0.0-3.0) Basophils (%) (Auto) 0.3 % (0.0-2.0) Sodium Level 146 mEQ/L (135-145) H Potassium Level 4.5 mEQ/L (3.4-4.9) Chloride Level 103 mEQ/L (98-107) Carbon Dioxide Level 30 mEQ/L (20-30) Anion Gap 13 (5-15) Blood Urea Nitrogen 42 mg/dL (7-23) H Creatinine 1.8 mg/dL (0.5-0.9) H Estimat Glomerular Filtration Rate mL/min (>60) Glucose Level 200 mg/dL (74-106) H Calcium Level 9.8 mg/dL (8.6-10.2) General: well developed, no acute distress, other - morbid obesity Head: normocophalic, atraumatic Neck: no rigidity EENT: benign Neurologic Exam Mental Status: awake, alert, normal cognition, other - anxious Speech: normal speech, no dysarthia Language: normal language, no aphasia Cranial Nerve II: fundus normal, visual moses, no papilledema Cranial Nerves III, IV, : PERRLA, EOMI, pupils Cranial Nerve V: normal facial sensations, temporales function normal, masseters function normal, pterygoids function normal Cranial Nerve VII: no facial asymmetry, normal facial expressions Cranial Nerve VIII: normal hearing, no nystagmus Cranial Nerve IX: normal palate elevation, gag response Cranial Nerve X: no voice hoarseness Cranial Nerve XI: SCM symmetric, trapezii function normal Cranial Nerve XII: tongue midline, no tongue atrophy/fasciculations Motor System: normal muscle tone, no involuntary movement, no muscle wasting, other - very tender R upper thigh /hip screams whenin pain unable ti lift legs 2 /2pain Sensory: normal pinprick Coordination: normal finger to nose bilaterally Deep Tendon Reflexes: 0 ankle (L), 0 ankle (R), 0 bicep (L), 0 bicep (R), 0 brachioradialis (L), 0 brachioradialis (R), 0 knee (L), 0 knee (R), 0 tricep (L) , 0 tricep (R) Reflexes: mute plantar (L), mute plantar (R) Impression/Recommendations Problems: (1) intractable pain R hip/thigh/flank /gluteus area (2) poor pain tolerance (3) Morbid obesity (4) Renal insufficiency (5) r/o compartmental syndrom Status: stable Recommendations #[id number] orthopedic eval pain mgmt dilaudid 1mg q4 hr mri pelvis/hip pend MRI R thigh NERY CARVER Mar 01, 2017 13:41
[2017-03-01] MEDS: Norco 5mg/325mg tab ORAL SCH ×2 (14:03→20:24)
[2017-03-01 15:50] VITALS: BP 132/73
[2017-03-01 16:22] LABS: INR 4.4 (0.9-1.1)
[2017-03-01 20:00] VITALS: BP 131/74
[2017-03-02] VITALS: BP 109/69
[2017-03-02] MEDS: Norco 5mg/325mg tab ORAL SCH ×4 (01:38→20:53)
[2017-03-02 04:00] VITALS: BP 144/74
[2017-03-02] MEDS: NovoLOG Insulin Flexpen SUBQ SCH ×4 (05:57→20:47)
[2017-03-02 07:34] LABS: BASOPHILS % (AUTO) 0.3 % (0.0-2.0); EOSINOPHILS % (AUTO) 0.4 % (0.0-3.0); LYMPHOCYTES % (AUTO) 14.9 % (20.0-45.0); MEAN CORPUSCULAR HGB CONC 32.2 G/DL (32.0-36.0); MEAN CORPUSCULAR VOLUME 93 FL (80-99); MEAN PLATELET VOLUME 7.4 FL (6.5-10.1); MONOCYTES % (AUTO) 5.8 % (1.0-10.0); NEUTROPHILS % (AUTO) 78.5 % (45.0-75.0); PLATELET COUNT 220 K/UL (150-450); RED BLOOD COUNT 3.34 M/UL (4.20-5.40); RED CELL DISTRIBUTION WIDTH 13.6 % (11.6-14.8); WHITE BLOOD COUNT 10.4 K/UL (4.8-10.8)
[2017-03-02 07:42] LABS: INR 4.3 (0.9-1.1); PROTHROMBIN TIME 46.2 SEC (9.30-11.50)
[2017-03-02 08:03] LABS: ALANINE AMINOTRANSFERASE 13 U/L (3-33); ALBUMIN/GLOBULIN RATIO 0.9 (1.0-2.7); ANION GAP 15 (5-15); ASPARTATE AMINO TRANSFERASE 18 U/L (5-40); CALCIUM 9.3 mg/dL (8.6-10.2); CARBON DIOXIDE 28 mEQ/L (20-30); CHLORIDE 105 mEQ/L (98-107); CREATININE 2.1 mg/dL (0.5-0.9); HEMOLYSIS 7; POTASSIUM 4.3 mEQ/L (3.4-4.9); SODIUM 148 mEQ/L (135-145); TOTAL PROTEIN 6.9 g/dL (6.6-8.7)
[2017-03-02 08:04] LABS: MAGNESIUM 2.2 mg/dL (1.7-2.5); PHOSPHORUS 3.6 mg/dL (2.5-4.8); URIC ACID 12.6 mg/dL (3.0-7.5)
[2017-03-02 08:06] LABS: TROPONIN I < 0.30 ng/mL (<=0.30)
[2017-03-02 08:13] VITALS: BP 135/68
[2017-03-02] MEDS: Metoprolol 25mg tab ORAL SCH ×2 (08:17→20:42)
--- NOTE | 2017-03-02 10:36 | Pulmonology Progress Note ---
Assessment/Plan Assessment/Plan ASSESSMENT exertional dyspnea CHF with mild diastolic dysfunction acute renal failure on CKD ( likely due to overdiuresis) moderate pulmonary HTN frequent PVC hx of DVT obesity HTN DM acute severe R hip and leg pain anemia iron deficiency PLAN OF CARE tele O2 HHN prn CXR negative venous Duplex BLE negative VQ scan pending clinically improved respiratory status ECHO with EF 55% and RVSP fio 59 c/w moderate pulmonary HTN cardio follows diuresis renal parameters, I/O, lytes closely monitored creat slowly trending down renal US c/w chronic renal disease ARF likely 2 to overdiuresis, on CKD BP management with CCB, optimize as needed BS management with SS of insulin pain management , increase Dilaudid dose to 1 mg neuro eval appreciated for acute R hip pain: Rule out polymyalgia rheumatica. Rule out acute osteoarthritis, rule out occult fracture pelvic or femur. neuro ordered additional imaging for w/up of severe R hip and leg pain X ray R ankle no fracture X ray pelvis and femur results pending as well as w/up for possible collagen vascular disease elevated ESR ortho eval-called and discussed, ordered MRI pelvis and R hip, will see patient on Friday pain specialist eval anemia w/up with low iron and normal ferritin, s/p Venofer x 1 02/28 patient with hx of chronic DVT, on Coumadin, keep INR in therapeutic range, venous Duplex no acute DVT, but chronic recanalized thrombus LLE case discussed and evaluated by supervising physician Subjective Allergies: Coded Allergies: BENAZEPRIL (Unverified Allergy, Unknown, 02/21/17) CODEINE (Unverified Allergy, Unknown, 02/21/17) PENICILLINS (Unverified Allergy, Unknown, 02/21/17) Uncoded Allergies: pcn (Allergy, Mild, sick, 10/17/12) Subjective on RA sat stable no signs fo respiratory distress dyspnea improved no chest pain still with R hip and leg pain MRI and ortho eval are pending for am Objective Last 24 Hour Vital Signs Date Time Temp Pulse Resp B/P Pulse Ox O2 Delivery O2 Flow Rate FiO2 03/02/17 08:17 63 135/68 03/02/17 08:16 63 135/68 03/02/17 08:13 63 18 135/68 96 Room Air 21 03/02/17 07:41 87 18 Room Air 03/02/17 04:00 81 03/02/17 04:00 97.9 81 19 144/74 100 Room Air 03/02/17 00:00 98.2 93 20 109/69 93 Room Air 03/02/17 00:00 72 03/01/17 21:58 94 20 Room Air 03/01/17 20:22 76 131/74 03/01/17 20:00 98.4 76 20 131/74 95 Room Air 03/01/17 20:00 82 03/01/17 15:50 98.1 84 18 132/73 98 Room Air 03/01/17 15:16 84 03/01/17 12:11 97.6 03/01/17 11:51 103 03/01/17 11:15 97.6 84 18 127/74 97 Room Air Intake and Output 03/01/17 03/02/17 19:00 07:00 Intake Total 680 ml Balance 680 ml Intake Oral 680 ml # Voids 3 1 Objective General Appearance: WD/WN female obese, in NAD HEENT: normocephalic, atraumatic, EOMI, OP moist Respiratory/Chest: chest wall non-tender, lungs clear Cardiovascular: normal peripheral pulses, S1 S2, no g/m/r, SR with frequent PVC Abdomen: normal bowel sounds, soft, non tender, obese Genitourinary: normal external genitalia Neurologic/Psychiatric: management supervisor II-XII grossly normal, no gross focal , extreme difficulties with ROM RLE Laboratory Tests 03/01/17 11:20: White Blood Count 13.0H, Red Blood Count 3.55L, Hemoglobin 10.9L, Hematocrit 32.0L, Mean Corpuscular Volume 90, Mean Corpuscular Hemoglobin 30.7, Mean Corpuscular Hemoglobin Concent 34.0, Red Cell Distribution Width 13.4, Platelet Count 218, Mean Platelet Volume 7.0, Neutrophils (%) (Auto) 82.7H, Lymphocytes ( %) (Auto) 10.6L, Monocytes (%) (Auto) 6.3, Eosinophils (%) (Auto) 0.1, Basophils (%) (Auto) 0.3, Prothrombin Time 47.0H, Prothromb Time International Ratio 4.4H, Sodium Level 146H, Potassium Level 4.5, Chloride Level 103, Carbon Dioxide Level 30, Anion Gap 13, Blood Urea Nitrogen 42H, Creatinine 1.8H, Estimat Glomerular Filtration Rate , Glucose Level 200H, Calcium Level 9.8 03/02/17 06:40: White Blood Count 10.4, Red Blood Count 3.34L, Hemoglobin 10.0L, Hematocrit 31.1L, Mean Corpuscular Volume 93, Mean Corpuscular Hemoglobin 30.0, Mean Corpuscular Hemoglobin Concent 32.2, Red Cell Distribution Width 13.6, Platelet Count 220, Mean Platelet Volume 7.4, Neutrophils (%) (Auto) 78.5H, Lymphocytes ( %) (Auto) 14.9L, Monocytes (%) (Auto) 5.8, Eosinophils (%) (Auto) 0.4, Basophils (%) (Auto) 0.3, Prothrombin Time 46.2H, Prothromb Time International Ratio 4.3H, Sodium Level 148H, Potassium Level 4.3, Chloride Level 105, Carbon Dioxide Level 28, Anion Gap 15, Blood Urea Nitrogen 52H, Creatinine 2.1H, Estimat Glomerular Filtration Rate , Glucose Level 170H, Calcium Level 9.3, Uric Acid 12.6H, Phosphorus Level 3.6, Magnesium Level 2.2, Total Bilirubin 0.6 , Aspartate Amino Transf (AST/SGOT) 18, Alanine Aminotransferase (ALT/SGPT) 13, Alkaline Phosphatase 84, Troponin I < 0.30, C-Reactive Protein, Quantitative 19.0H, Pro-B-Type Natriuretic Peptide 267, Total Protein 6.9, Albumin 3.4L, Globulin 3.5, Albumin/Globulin Ratio 0.9L Current Medications Medications (Trade) Dose Ordered Sig/Chaim Route PRN Reason Start Time Stop Time Status Last Admin Dose Admin Acetaminophen (Tylenol) 650 mg Q4H PRN ORAL Fever 02/25/17 16:00 03/27/17 15:59 Acetaminophen (Tylenol) 650 mg Q6H PRN ORAL Mild Pain/Temp > 100.5 02/26/17 13:30 03/28/17 13:29 02/28/17 06:26 Acetaminophen/ Hydrocodone Bitart ([place] 5/325) 1 tab Q6H ORAL 03/01/17 14:00 03/08/17 13:59 03/02/17 08:23 Albuterol/ Ipratropium (DuoNeb 0.5-3(2.5)mg/3ml) 3 ml Q4H PRN HHN Shortness of Breath 03/01/17 12:00 03/06/17 11:59 Allopurinol (Allopurinol) 300 mg DAILY ORAL 02/28/17 09:00 03/30/17 08:59 03/02/17 08:16 Amlodipine Besylate (Norvasc) 10 mg DAILY ORAL 02/26/17 09:00 03/28/17 08:59 03/02/17 08:16 Dextrose (Dextrose 50%) STAT PRN IV Hypoglycemia 02/25/17 16:00 03/27/17 15:59 Furosemide (Lasix) 40 mg DAILY IV 02/28/17 09:00 03/30/17 08:59 03/02/17 08:35 Gabapentin (Neurontin) 300 mg THREE TIMES A DAY ORAL 03/01/17 13:45 03/31/17 13:44 03/02/17 08:17 Hydromorphone HCl (Dilaudid) 1 mg Q4H PRN IVP Severe Breakthru Pain (>7) 03/01/17 10:45 03/08/17 10:44 Insulin Aspart (NovoLOG) BEFORE MEALS AND HS SUBQ 02/25/17 21:00 03/27/17 20:59 03/02/17 05:57 Metoprolol Tartrate (Lopressor) 25 mg Q12HR ORAL 03/01/17 09:45 03/31/17 09:44 03/02/17 08:17 Ondansetron HCl (Zofran) 4 mg Q6H PRN IVP Nausea & Vomiting 02/25/17 16:00 03/27/17 15:59 Pantoprazole (Protonix) 40 mg BID ORAL 02/27/17 18:00 03/29/17 17:59 03/02/17 08:16 Polyethylene Glycol (Miralax) 17 gm DAILYPRN PRN ORAL Constipation 02/25/17 16:00 03/27/17 15:59 Potassium Chloride (K-Dur) 40 meq DAILY ORAL 03/01/17 09:00 03/31/17 08:59 03/02/17 08:23 Temazepam (Restoril) 15 mg HSPRN PRN ORAL Insomnia 02/25/17 16:00 03/04/17 15:59 Warfarin Sodium (Coumadin per pharmacy) 1 ea DAILY PRN MISC PER RX PROTOCOL 02/25/17 19:15 03/27/17 19:14 Mark ([facility])Sugey NP Mar 02, 2017 10:36
--- NOTE | 2017-03-02 11:31 | General Progress Note ---
Assessment/Plan Status: unchanged Status Narrative Cr 2.1 Assessment/Plan status: Acute renal failure, likely due to over diuresis- Cr down 1.9 to 1.6 Possible CKD Hypo Kalemia Anemia- Low Iron HyperUrecemia Other: 1. Exertional dyspnea. 2. Peripheral edema. 3. Deep venous thrombosis recently. 4. Obesity. 5. Snoring. 6. Diabetes. 7. Hypertension. Plan: lee- hip MR monitor renal parameters- allopurinol- Venofer Mag and K supp. as needed Monitor Lytes Echo Ej Fx 55% Anemia blackwell optimize cardiac and pulm status hold Lasix Subjective ROS Limited/Unobtainable: No Constitutional: Reports: malaise, other - right hip pain Allergies: Coded Allergies: BENAZEPRIL (Unverified Allergy, Unknown, 02/21/17) CODEINE (Unverified Allergy, Unknown, 02/21/17) PENICILLINS (Unverified Allergy, Unknown, 02/21/17) Uncoded Allergies: pcn (Allergy, Mild, sick, 10/17/12) Objective Last 24 Hour Vital Signs Date Time Temp Pulse Resp B/P Pulse Ox O2 Delivery O2 Flow Rate FiO2 03/02/17 08:17 63 135/68 03/02/17 08:16 63 135/68 03/02/17 08:13 63 18 135/68 96 Room Air 21 03/02/17 07:41 87 18 Room Air 03/02/17 04:00 81 03/02/17 04:00 97.9 81 19 144/74 100 Room Air 03/02/17 00:00 98.2 93 20 109/69 93 Room Air 03/02/17 00:00 72 03/01/17 21:58 94 20 Room Air 03/01/17 20:22 76 131/74 03/01/17 20:00 98.4 76 20 131/74 95 Room Air 03/01/17 20:00 82 03/01/17 15:50 98.1 84 18 132/73 98 Room Air 03/01/17 15:16 84 03/01/17 12:11 97.6 03/01/17 11:51 103 Intake and Output 03/01/17 03/02/17 19:00 07:00 Intake Total 680 ml Balance 680 ml Intake Oral 680 ml # Voids 3 1 Laboratory Tests 7/16/17 06:40: White Blood Count 10.4, Red Blood Count 3.34L, Hemoglobin 10.0L, Hematocrit 31.1L, Mean Corpuscular Volume 93, Mean Corpuscular Hemoglobin 30.0, Mean Corpuscular Hemoglobin Concent 32.2, Red Cell Distribution Width 13.6, Platelet Count 220, Mean Platelet Volume 7.4, Neutrophils (%) (Auto) 78.5H, Lymphocytes ( %) (Auto) 14.9L, Monocytes (%) (Auto) 5.8, Eosinophils (%) (Auto) 0.4, Basophils (%) (Auto) 0.3, Prothrombin Time 46.2H, Prothromb Time International Ratio 4.3H, Sodium Level 148H, Potassium Level 4.3, Chloride Level 105, Carbon Dioxide Level 28, Anion Gap 15, Blood Urea Nitrogen 52H, Creatinine 2.1H, Estimat Glomerular Filtration Rate , Glucose Level 170H, Uric Acid 12.6H, Calcium Level 9.3, Phosphorus Level 3.6, Magnesium Level 2.2, Total Bilirubin 0.6, Aspartate Amino Transf (AST/SGOT) 18, Alanine Aminotransferase (ALT/SGPT) 13, Alkaline Phosphatase 84, Troponin I < 0.30, C-Reactive Protein, Quantitative 19.0H, Pro-B-Type Natriuretic Peptide 267, Total Protein 6.9, Albumin 3.4L, Globulin 3.5, Albumin/Globulin Ratio 0.9L Height (Feet): 5 Height (Inches): 6.00 Weight (Pounds): 213 Respiratory/Chest: decreased breath sounds Abdomen: distended Objective other PE not changed ELIZABET NIETO Mar 02, 2017 11:31
[2017-03-02 12:00] VITALS: BP 120/67
--- NOTE | 2017-03-02 12:53 | Cardiology Progress Note ---
Assessment/Plan Assessment/Plan 1. Exertional dyspnea. 2. Peripheral edema. 3. Deep venous thrombosis recently. 4. Obesity. 5. Snoring. 6. Diabetes. 7. Hypertension. 8. sever hip and leg pain acute 9. SVT duplex neg all trop neg no new ekg found echo normal ef pum htn hip an leg pain blackwell as per pmd still has episodes of rapid heart rate will increase bb awairt mri of hip and pelvis Subjective Cardiovascular: Denies: chest pain, lightheadedness, palpitations Respiratory: Denies: shortness of breath Gastrointestinal/Abdominal: Denies: abdominal pain Genitourinary: Denies: burning Subjective remains with sever hip an leg pain Objective Last 24 Hour Vital Signs Date Time Temp Pulse Resp B/P Pulse Ox O2 Delivery O2 Flow Rate FiO2 03/02/17 12:00 97.7 75 16 120/67 95 Room Air 03/02/17 08:17 63 135/68 03/02/17 08:16 63 135/68 03/02/17 08:13 63 18 135/68 96 Room Air 21 03/02/17 07:41 87 18 Room Air 03/02/17 04:00 81 03/02/17 04:00 97.9 81 19 144/74 100 Room Air 03/02/17 00:00 98.2 93 20 109/69 93 Room Air 03/02/17 00:00 72 03/01/17 21:58 94 20 Room Air 03/01/17 20:22 76 131/74 03/01/17 20:00 98.4 76 20 131/74 95 Room Air 03/01/17 20:00 82 03/01/17 15:50 98.1 84 18 132/73 98 Room Air 03/01/17 15:16 84 General Appearance: moderate distress - with any right leg movement Neck: supple Cardiovascular: normal rate, regular rhythm Respiratory/Chest: lungs clear, normal breath sounds Abdomen: normal bowel sounds, non tender, soft Extremities: no swelling Intake and Output 03/01/17 03/02/17 19:00 07:00 Intake Total 680 ml Balance 680 ml Intake Oral 680 ml # Voids 3 1 Laboratory Tests Test 03/02/17 06:40 White Blood Count 10.4 K/UL (4.8-10.8) Red Blood Count 3.34 M/UL (4.20-5.40) L Hemoglobin 10.0 G/DL (12.0-16.0) L Hematocrit 31.1 % (37.0-47.0) L Mean Corpuscular Volume 93 FL (80-99) Mean Corpuscular Hemoglobin 30.0 PG (27.0-31.0) Mean Corpuscular Hemoglobin Concent 32.2 G/DL (32.0-36.0) Red Cell Distribution Width 13.6 % (11.6-14.8) Platelet Count 220 K/UL (150-450) Mean Platelet Volume 7.4 FL (6.5-10.1) Neutrophils (%) (Auto) 78.5 % (45.0-75.0) H Lymphocytes (%) (Auto) 14.9 % (20.0-45.0) L Monocytes (%) (Auto) 5.8 % (1.0-10.0) Eosinophils (%) (Auto) 0.4 % (0.0-3.0) Basophils (%) (Auto) 0.3 % (0.0-2.0) Prothrombin Time 46.2 SEC (9.30-11.50) H Prothromb Time International Ratio 4.3 (0.9-1.1) H Sodium Level 148 mEQ/L (135-145) H Potassium Level 4.3 mEQ/L (3.4-4.9) Chloride Level 105 mEQ/L (98-107) Carbon Dioxide Level 28 mEQ/L (20-30) Anion Gap 15 (5-15) Blood Urea Nitrogen 52 mg/dL (7-23) H Creatinine 2.1 mg/dL (0.5-0.9) H Estimat Glomerular Filtration Rate mL/min (>60) Glucose Level 170 mg/dL (74-106) H Uric Acid 12.6 mg/dL (3.0-7.5) H Calcium Level 9.3 mg/dL (8.6-10.2) Phosphorus Level 3.6 mg/dL (2.5-4.8) Magnesium Level 2.2 mg/dL (1.7-2.5) Total Bilirubin 0.6 mg/dL (0.0-1.2) Aspartate Amino Transf (AST/SGOT) 18 U/L (5-40) Alanine Aminotransferase (ALT/SGPT) 13 U/L (3-33) Alkaline Phosphatase 84 U/L (35-104) Troponin I < 0.30 ng/mL (<=0.30) C-Reactive Protein, Quantitative 19.0 mg/dL (< 0.5) H Pro-B-Type Natriuretic Peptide 267 pg/mL (0-450) Total Protein 6.9 g/dL (6.6-8.7) Albumin 3.4 g/dL (3.5-5.2) L Globulin 3.5 g/dL Albumin/Globulin Ratio 0.9 (1.0-2.7) L BETTIE PIERRE Mar 02, 2017 12:53
[2017-03-02] MEDS: HYDROmorphone 1mg/ml Carpuject IVP PRN (12:54)
[2017-03-02] MEDS ORDERED: Metoprolol Tartrate 12.5mg TAB ORAL ONE (13:30)
--- NOTE | 2017-03-02 13:44 | Consultation ---
History of Present Illness General Date patient seen: Mar 02, 2017 Chief Complaint: Present Illness Allergies: Coded Allergies: BENAZEPRIL (Unverified Allergy, Unknown, 02/21/17) CODEINE (Unverified Allergy, Unknown, 02/21/17) PENICILLINS (Unverified Allergy, Unknown, 02/21/17) Uncoded Allergies: pcn (Allergy, Mild, sick, 10/17/12) Medication History Scheduled Amlodipine Besylate* (Amlodipine Besylate*), 10 MG PO DAILY, (Reported) Atorvastatin Calcium* (Atorvastatin Calcium*), 10 MG ORAL BEDTIME, (Reported) Ergocalciferol (Vitamin D2) (Vitamin D2), 50,000 UNIT PO ONCE A WEEK, (Reported) Furosemide* (Lasix*), 40 MG PO DAILY, (Reported) Glimepiride* (Amaryl*), 2 MG PO ACBREAKFAST, (Reported) Latanoprost* (Xalatan*), 1 DROP BOTH EYES BEDTIME, (Reported) Pantoprazole* (Pantoprazole*), 40 MG PO DAILY, (Reported) Potassium Chloride (Klor-Con 10), 10 MEQ PO BID, (Reported) Warfarin Sod* (Warfarin Sod*), 3 MG ORAL DAILY Patient History Healthcare decision maker Resuscitation status Full Code Advanced Directive on File Physical Exam Last 24 Hour Vital Signs Date Time Temp Pulse Resp B/P Pulse Ox O2 Delivery O2 Flow Rate FiO2 03/02/17 12:00 97.7 75 16 120/67 95 Room Air 03/02/17 08:17 63 135/68 03/02/17 08:16 63 135/68 03/02/17 08:13 63 18 135/68 96 Room Air 21 03/02/17 07:41 87 18 Room Air 03/02/17 04:00 81 03/02/17 04:00 97.9 81 19 144/74 100 Room Air 03/02/17 00:00 98.2 93 20 109/69 93 Room Air 03/02/17 00:00 72 03/01/17 21:58 94 20 Room Air 03/01/17 20:22 76 131/74 03/01/17 20:00 98.4 76 20 131/74 95 Room Air 03/01/17 20:00 82 03/01/17 15:50 98.1 84 18 132/73 98 Room Air 03/01/17 15:16 84 Intake and Output 03/01/17 03/02/17 19:00 07:00 Intake Total 680 ml Balance 680 ml Intake Oral 680 ml # Voids 3 1 Laboratory Tests Test 03/02/17 06:40 White Blood Count 10.4 K/UL (4.8-10.8) Red Blood Count 3.34 M/UL (4.20-5.40) L Hemoglobin 10.0 G/DL (12.0-16.0) L Hematocrit 31.1 % (37.0-47.0) L Mean Corpuscular Volume 93 FL (80-99) Mean Corpuscular Hemoglobin 30.0 PG (27.0-31.0) Mean Corpuscular Hemoglobin Concent 32.2 G/DL (32.0-36.0) Red Cell Distribution Width 13.6 % (11.6-14.8) Platelet Count 220 K/UL (150-450) Mean Platelet Volume 7.4 FL (6.5-10.1) Neutrophils (%) (Auto) 78.5 % (45.0-75.0) H Lymphocytes (%) (Auto) 14.9 % (20.0-45.0) L Monocytes (%) (Auto) 5.8 % (1.0-10.0) Eosinophils (%) (Auto) 0.4 % (0.0-3.0) Basophils (%) (Auto) 0.3 % (0.0-2.0) Prothrombin Time 46.2 SEC (9.30-11.50) H Prothromb Time International Ratio 4.3 (0.9-1.1) H Sodium Level 148 mEQ/L (135-145) H Potassium Level 4.3 mEQ/L (3.4-4.9) Chloride Level 105 mEQ/L (98-107) Carbon Dioxide Level 28 mEQ/L (20-30) Anion Gap 15 (5-15) Blood Urea Nitrogen 52 mg/dL (7-23) H Creatinine 2.1 mg/dL (0.5-0.9) H Estimat Glomerular Filtration Rate mL/min (>60) Glucose Level 170 mg/dL (74-106) H Uric Acid 12.6 mg/dL (3.0-7.5) H Calcium Level 9.3 mg/dL (8.6-10.2) Phosphorus Level 3.6 mg/dL (2.5-4.8) Magnesium Level 2.2 mg/dL (1.7-2.5) Total Bilirubin 0.6 mg/dL (0.0-1.2) Aspartate Amino Transf (AST/SGOT) 18 U/L (5-40) Alanine Aminotransferase (ALT/SGPT) 13 U/L (3-33) Alkaline Phosphatase 84 U/L (35-104) Troponin I < 0.30 ng/mL (<=0.30) C-Reactive Protein, Quantitative 19.0 mg/dL (< 0.5) H Pro-B-Type Natriuretic Peptide 267 pg/mL (0-450) Total Protein 6.9 g/dL (6.6-8.7) Albumin 3.4 g/dL (3.5-5.2) L Globulin 3.5 g/dL Albumin/Globulin Ratio 0.9 (1.0-2.7) L Height (Feet): 5 Height (Inches): 6.00 Weight (Pounds): 213 Medications Current Medications Medications (Trade) Dose Ordered Sig/Chaim Route PRN Reason Start Time Stop Time Status Last Admin Dose Admin Acetaminophen (Tylenol) 650 mg Q4H PRN ORAL Fever 02/25/17 16:00 03/27/17 15:59 Acetaminophen (Tylenol) 650 mg Q6H PRN ORAL Mild Pain/Temp > 100.5 02/26/17 13:30 03/28/17 13:29 02/28/17 06:26 Acetaminophen/ Hydrocodone Bitart ([place] 5/325) 1 tab Q6H ORAL 03/01/17 14:00 03/08/17 13:59 03/02/17 08:23 Albuterol/ Ipratropium (DuoNeb 0.5-3(2.5)mg/3ml) 3 ml Q4H PRN HHN Shortness of Breath 03/01/17 12:00 03/06/17 11:59 Allopurinol (Allopurinol) 300 mg DAILY ORAL 02/28/17 09:00 03/30/17 08:59 03/02/17 08:16 Amlodipine Besylate (Norvasc) 10 mg DAILY ORAL 02/26/17 09:00 03/28/17 08:59 03/02/17 08:16 Dextrose (Dextrose 50%) STAT PRN IV Hypoglycemia 02/25/17 16:00 03/27/17 15:59 Docusate Sodium (Colace) 100 mg THREE TIMES A DAY ORAL 03/02/17 13:00 04/01/17 12:59 Gabapentin (Neurontin) 300 mg THREE TIMES A DAY ORAL 03/01/17 13:45 03/31/17 13:44 03/02/17 08:17 Hydromorphone HCl (Dilaudid) 1 mg Q4H PRN IVP Severe Breakthru Pain (>7) 03/01/17 10:45 03/08/17 10:44 03/02/17 12:54 Insulin Aspart (NovoLOG) BEFORE MEALS AND HS SUBQ 02/25/17 21:00 03/27/17 20:59 03/02/17 11:43 Metoprolol Tartrate (Lopressor) 37.5 mg Q12HR ORAL 03/02/17 21:00 04/01/17 20:59 Ondansetron HCl (Zofran) 4 mg Q6H PRN IVP Nausea & Vomiting 02/25/17 16:00 03/27/17 15:59 Pantoprazole (Protonix) 40 mg BID ORAL 02/27/17 18:00 03/29/17 17:59 03/02/17 08:16 Polyethylene Glycol (Miralax) 17 gm DAILYPRN PRN ORAL Constipation 02/25/17 16:00 03/27/17 15:59 Temazepam (Restoril) 15 mg HSPRN PRN ORAL Insomnia 02/25/17 16:00 03/04/17 15:59 Warfarin Sodium (Coumadin per pharmacy) 1 ea DAILY PRN MISC PER RX PROTOCOL 02/25/17 19:15 03/27/17 19:14 Assessment/Plan Assessment/Plan (1) Lumbar Radiculopathy (2) Lumbago (3) Right hip pain (4) Morbid Obesity (5) Lumbar spinal stenosis Seen Dictated. SEAN VELEZ Mar 02, 2017 13:44
[2017-03-02] MEDS: Docusate 100mg cap ORAL SCH ×2 (14:31→17:05)
[2017-03-02] MEDS ORDERED: Tubing IV Secondary IV ONE (15:08)
[2017-03-02 16:00] VITALS: BP 107/70
[2017-03-02 20:00] VITALS: BP 132/68
[2017-03-03] VITALS: BP 119/68
[2017-03-03] MEDS: HYDROmorphone 1mg/ml Carpuject IVP PRN ×3 (01:51→14:34)
[2017-03-03] MEDS: Norco 5mg/325mg tab ORAL SCH ×4 (02:47→22:34)
[2017-03-03 04:00] VITALS: BP 120/68
--- NOTE | 2017-03-03 05:30 | Consultation ---
DATE OF CONSULTATION: 03/02/2017 PAIN MANAGEMENT CONSULTATION CONSULTING PHYSICIAN: Herlinda Bethea M.D. REFERRING PHYSICIAN: Merissa Mac M.D. PHYSICIAN WATER SAFETY TEACHER: Anders Saunders CHIEF COMPLAINT: Low back pain and right hip pain. HISTORY OF PRESENT ILLNESS: This is an 81-year-old female, who is being seen on the telemetry floor of [facility] for initial comprehensive pain management consultation. The patient reports that she has been having low back and right hip pain for the past 4 years. It is on and off pain that is chronic on acute rating it 10/10 at times radiating down to her right lower extremity, increasing with movement and nothing has been helping to relieve her pain. The patient upon admission to the hospital complaining of severe right hip pain. X-ray of the left ankle showed no acute bony trauma. X-ray of the right hip showed negative right hip series with continued pain. At this time, she is on Dilaudid 1 mg IV every 4 hours as needed for severe breakthrough pain and [place] 5/325 mg every 6 hours around the clock with Neurontin 300 mg tablet 3 times a day. I will be going for a MRI of the right hip and pelvis to rule out any further pathology. At this time, the patient is having chronic kidney disease with creatinine at 2.1 and has been seen by pediatric np. We were consulted, so that the patient would have adequate pain control while here in the hospital. PAST MEDICAL HISTORY: Hypertension, CHF, diabetes mellitus, gout, spinal stenosis, atrial fibrillation, DVT, chronic kidney disease, and obesity. PAST SURGICAL HISTORY: Hysterectomy. SOCIAL HISTORY: Denies smoking, drinking, or drug abuse. ALLERGIES: Benadryl, codeine, and penicillin. MEDICATIONS: Amlodipine, atorvastatin, vitamin D2, Lasix, Amaryl, Xalatan, pantoprazole, Klor-Con, and warfarin. REVIEW OF SYSTEMS: Denies rash, fever, chills, sweating, dizziness, drowsiness, blurred vision, sore throat, and change in weight. No shortness of breath, palpitations, or cough. No nausea, vomiting, diarrhea, or blood in the stool or urine. No bowel or bladder incontinence. No dysuria. She is complaining of low back and right knee pain. PHYSICAL EXAMINATION: GENERAL: Alert, awake, and oriented. VITAL SIGNS: Blood pressure 120/67, heart rate 75, oxygen saturation 95%, respiratory rate 16, and temperature is 97.7 degrees Fahrenheit. Height is 5 feet and weight is 230 pounds HEENT: PEERLA. NECK: Range of motion is full in all directions. No tenderness to paracervical muscles. No adenopathy. LUNGS: Decreased breath sounds bilaterally. HEART: S1 and S2 regular. ABDOMEN: Obese. BACK: Range of motion is decreased in flexion and extension with tenderness to paraspinal muscles. No tenderness to trapezius or rhomboid muscles. EXTREMITIES: Upper extremity range of motion is full in all directions. Motor is intact. No cyanosis. No edema. Sensory is intact. Reflexes are not obtainable. No adenopathy. Lower extremity range of motion is decreased due to the patient's pain and condition. Motor, unable to obtain due to the patient's pain. Sensory is reduced. Reflexes are unobtainable with edema noted. ASSESSMENT AND PLAN: This is an 81-year-old female with lumbago, lumbar radiculopathy, lumbar spinal stenosis, right hip pain, and morbid obesity. The patient will be continued on [place] and Dilaudid. The Neurontin will be decreased to 100 mg tablet at nighttime. We will order an MRI of the lumbar spine to rule out further pathology in the lower back. The patient was discussed with Dr. Bethea and Dr. Bethea concurred. We will follow the patient. Thank you very much for the courtesy of this consultation. Herlinda Bethea M.D. BEN Saunders DR: JASKARAN JOB#: [id number] CC: JENNIFER
[2017-03-03] MEDS: NovoLOG Insulin Flexpen SUBQ SCH ×4 (06:15→22:40)
[2017-03-03 07:56] VITALS: BP 134/57
[2017-03-03 07:58] LABS: BASOPHILS % (AUTO) 0.4 % (0.0-2.0); LYMPHOCYTES % (AUTO) 19.5 % (20.0-45.0); MEAN CORPUSCULAR HEMOGLOBIN 30.1 PG (27.0-31.0); MEAN CORPUSCULAR HGB CONC 32.4 G/DL (32.0-36.0); MEAN CORPUSCULAR VOLUME 93 FL (80-99); MEAN PLATELET VOLUME 6.4 FL (6.5-10.1); MONOCYTES % (AUTO) 6.5 % (1.0-10.0); NEUTROPHILS % (AUTO) 72.6 % (45.0-75.0); PLATELET COUNT 235 K/UL (150-450); RED BLOOD COUNT 3.58 M/UL (4.20-5.40); RED CELL DISTRIBUTION WIDTH 13.6 % (11.6-14.8); WHITE BLOOD COUNT 8.5 K/UL (4.8-10.8)
[2017-03-03] MEDS: Docusate 100mg cap ORAL SCH ×3 (08:01→17:57)
[2017-03-03] MEDS: Metoprolol 25mg tab ORAL SCH ×2 (08:03→22:34)
[2017-03-03 08:18] LABS: INR 4.2 (0.9-1.1); PROTHROMBIN TIME 44.8 SEC (9.30-11.50)
[2017-03-03 08:25] LABS: ALANINE AMINOTRANSFERASE 13 U/L (3-33); ALBUMIN/GLOBULIN RATIO 0.7 (1.0-2.7); ANION GAP 12 (5-15); ASPARTATE AMINO TRANSFERASE 18 U/L (5-40); CALCIUM 9.8 mg/dL (8.6-10.2); CARBON DIOXIDE 30 mEQ/L (20-30); CHLORIDE 100 mEQ/L (98-107); HEMOLYSIS 0; MAGNESIUM 2.2 mg/dL (1.7-2.5); PHOSPHORUS 3.6 mg/dL (2.5-4.8); POTASSIUM 4.1 mEQ/L (3.4-4.9); SODIUM 142 mEQ/L (135-145); TOTAL PROTEIN 7.9 g/dL (6.6-8.7); URIC ACID 11.2 mg/dL (3.0-7.5)
--- NOTE | 2017-03-03 08:32 | General Progress Note ---
Assessment/Plan Assessment/Plan (1) Lumbar Radiculopathy (2) Lumbago (3) Right hip pain (4) Morbid Obesity (5) Lumbar spinal stenosis Patient will be continued on [place] and Dilaudid. MRI Lumbar spine and Pelvis pending. D/w Dr. Bethea and he concurred. Subjective Date patient seen: Mar 03, 2017 Time patient seen: 06:45 - am Allergies: Coded Allergies: BENAZEPRIL (Unverified Allergy, Unknown, 02/21/17) CODEINE (Unverified Allergy, Unknown, 02/21/17) PENICILLINS (Unverified Allergy, Unknown, 02/21/17) Uncoded Allergies: pcn (Allergy, Mild, sick, 10/17/12) Subjective REVIEW OF SYSTEMS: Denies rash, fever, chills, sweating, dizziness, drowsiness, blurred vision, sore throat, and change in weight. No shortness of breath, palpitations, or cough. No nausea, vomiting, diarrhea, or blood in the stool or urine. No bowel or bladder incontinence. No dysuria. She is complaining of low back and right knee pain. SUBJECTIVE: Patient reports that her pain has been stable and is a 3/10 at this time. She will be going for MRI of lumbar and pelvis later this morning. Objective Last 24 Hour Vital Signs Date Time Temp Pulse Resp B/P Pulse Ox O2 Delivery O2 Flow Rate FiO2 03/03/17 08:03 78 134/57 03/03/17 08:02 78 134/57 03/03/17 07:56 97.6 78 19 134/57 94 Room Air 03/03/17 04:00 70 03/03/17 04:00 97.2 68 18 120/68 94 Room Air 03/03/17 00:00 68 03/03/17 00:00 97.7 72 18 119/68 94 Room Air 03/02/17 20:42 77 132/68 03/02/17 20:00 87 03/02/17 20:00 97.2 77 20 132/68 97 Room Air 03/02/17 19:26 82 18 Room Air 03/02/17 16:00 98.2 62 18 107/70 95 Room Air 03/02/17 16:00 64 03/02/17 14:31 75 120/67 03/02/17 12:00 97.7 75 16 120/67 95 Room Air 03/02/17 12:00 76 03/02/17 11:53 76 Intake and Output 03/02/17 03/03/17 19:00 07:00 Intake Total 120 ml Output Total 300 ml 375 ml Balance -300 ml -255 ml Intake Oral 120 ml Output Urine Total 300 ml 375 ml Laboratory Tests 03/03/17 07:30: White Blood Count 8.5, Red Blood Count 3.58L, Hemoglobin 10.8L, Hematocrit 33.3L , Mean Corpuscular Volume 93, Mean Corpuscular Hemoglobin 30.1, Mean Corpuscular Hemoglobin Concent 32.4, Red Cell Distribution Width 13.6, Platelet Count 235, Mean Platelet Volume 6.4L, Neutrophils (%) (Auto) 72.6, Lymphocytes ( %) (Auto) 19.5L, Monocytes (%) (Auto) 6.5, Eosinophils (%) (Auto) 1.0, Basophils (%) (Auto) 0.4, Prothrombin Time 44.8H, Prothromb Time International Ratio 4.2H, Sodium Level 142, Potassium Level 4.1, Chloride Level 100, Carbon Dioxide Level 30, Anion Gap 12, Blood Urea Nitrogen 59H, Creatinine 2.0H, Estimat Glomerular Filtration Rate , Glucose Level 191H, Uric Acid 11.2H, Calcium Level 9.8, Phosphorus Level 3.6, Magnesium Level 2.2, Total Bilirubin 0.6, Aspartate Amino Transf (AST/SGOT) 18, Alanine Aminotransferase (ALT/SGPT) 13, Alkaline Phosphatase 88, Total Protein 7.9, Albumin 3.4L, Globulin 4.5, Albumin/Globulin Ratio 0.7L, Prealbumin [Pending] Height (Feet): 5 Height (Inches): 6.00 Weight (Pounds): 213 Objective GENERAL: Alert, awake, and oriented. HEENT: PEERLA. NECK: Range of motion is full in all directions. No tenderness to paracervical muscles. No adenopathy. LUNGS: Decreased breath sounds bilaterally. HEART: S1 and S2 regular. ABDOMEN: Obese. BACK: Range of motion is decreased in flexion and extension with tenderness to paraspinal muscles. No tenderness to trapezius or rhomboid muscles. EXTREMITIES: No cyanosis. No clubbing. Neuro: No changes. ZESEAN KNOWLES Mar 03, 2017 08:32
--- NOTE | 2017-03-03 08:38 | Diagnostic Imaging Report ---
Indication: PAIN Technique: One view of the pelvis Comparison: None Findings: No definite acute fractures. No dislocations. There are are bilateral sacroiliac joint degenerative changes. There are mild bilateral hip joint degenerative changes. Impression: No definite acute bony trauma Note, however, that in elderly osteopenic patients, nondisplaced hip or pelvic fractures can easily be occult. Consider evaluation with cross-sectional imaging if there is high clinical suspicion
--- NOTE | 2017-03-03 08:38 | Diagnostic Imaging Report ---
Indications: PAIN Technique: Two views of the right femur Comparison: None Findings: Positioning is somewhat limited. No definite acute fractures. No dislocations. There is degenerative narrowing of the right hip joint space. No radiopaque foreign body. There are vascular calcifications Impression: No acute bony trauma
--- NOTE | 2017-03-03 09:10 | General Progress Note ---
Assessment/Plan Status: stable Assessment/Plan Status: Acute renal failure, likely due to over diuresis- Cr down 1.9 to 1.6 Possible CKD Hypo Kalemia Anemia- Low Iron HyperUrecemia Other: 1. Exertional dyspnea. 2. Peripheral edema. 3. Deep venous thrombosis recently. 4. Obesity. 5. Snoring. 6. Diabetes. 7. Hypertension. Plan: lee- hip MR monitor renal parameters- allopurinol- Venofer Mag and K supp. as needed Monitor Lytes Echo Ej Fx 55% Anemia blackwell optimize cardiac and pulm status hold Lasix Subjective ROS Limited/Unobtainable: No Constitutional: Reports: malaise Allergies: Coded Allergies: BENAZEPRIL (Unverified Allergy, Unknown, 02/21/17) CODEINE (Unverified Allergy, Unknown, 02/21/17) PENICILLINS (Unverified Allergy, Unknown, 02/21/17) Uncoded Allergies: pcn (Allergy, Mild, sick, 10/17/12) Objective Last 24 Hour Vital Signs Date Time Temp Pulse Resp B/P Pulse Ox O2 Delivery O2 Flow Rate FiO2 03/03/17 08:03 78 134/57 03/03/17 08:02 78 134/57 03/03/17 07:56 97.6 78 19 134/57 94 Room Air 03/03/17 04:00 70 03/03/17 04:00 97.2 68 18 120/68 94 Room Air 03/03/17 00:00 68 03/03/17 00:00 97.7 72 18 119/68 94 Room Air 03/02/17 20:42 77 132/68 03/02/17 20:00 87 03/02/17 20:00 97.2 77 20 132/68 97 Room Air 03/02/17 19:26 82 18 Room Air 03/02/17 16:00 98.2 62 18 107/70 95 Room Air 03/02/17 16:00 64 03/02/17 14:31 75 120/67 03/02/17 12:00 97.7 75 16 120/67 95 Room Air 03/02/17 12:00 76 03/02/17 11:53 76 Intake and Output 03/02/17 03/03/17 19:00 07:00 Intake Total 120 ml Output Total 300 ml 375 ml Balance -300 ml -255 ml Intake Oral 120 ml Output Urine Total 300 ml 375 ml Laboratory Tests 03/03/17 07:30: White Blood Count 8.5, Red Blood Count 3.58L, Hemoglobin 10.8L, Hematocrit 33.3L , Mean Corpuscular Volume 93, Mean Corpuscular Hemoglobin 30.1, Mean Corpuscular Hemoglobin Concent 32.4, Red Cell Distribution Width 13.6, Platelet Count 235, Mean Platelet Volume 6.4L, Neutrophils (%) (Auto) 72.6, Lymphocytes ( %) (Auto) 19.5L, Monocytes (%) (Auto) 6.5, Eosinophils (%) (Auto) 1.0, Basophils (%) (Auto) 0.4, Prothrombin Time 44.8H, Prothromb Time International Ratio 4.2H, Sodium Level 142, Potassium Level 4.1, Chloride Level 100, Carbon Dioxide Level 30, Anion Gap 12, Blood Urea Nitrogen 59H, Creatinine 2.0H, Estimat Glomerular Filtration Rate , Glucose Level 191H, Uric Acid 11.2H, Calcium Level 9.8, Phosphorus Level 3.6, Magnesium Level 2.2, Total Bilirubin 0.6, Aspartate Amino Transf (AST/SGOT) 18, Alanine Aminotransferase (ALT/SGPT) 13, Alkaline Phosphatase 88, Total Protein 7.9, Albumin 3.4L, Globulin 4.5, Albumin/Globulin Ratio 0.7L, Prealbumin [Pending] Height (Feet): 5 Height (Inches): 6.00 Weight (Pounds): 213 General Appearance: no apparent distress, other - hip pain + Cardiovascular: normal rate Respiratory/Chest: decreased breath sounds Abdomen: soft Objective other PE not changed ELIZABET NIETO Mar 03, 2017 09:10
[2017-03-03 11:26] VITALS: BP 131/79
--- NOTE | 2017-03-03 11:49 | Consultation ---
Consult Note Consult Note Ortho consult called for rt hip leg pain. recommended Hip and pelvis MRI which have still not been done. Noted a Lspine MRI was also ordered but hasn't been completed. Agree with addition of Lspine MRI. Will await these studies and will have further recommendations once available. Xrays were reviewed. Will follow up on studies ZARI AUGUSTIN Mar 03, 2017 11:49
--- NOTE | 2017-03-03 12:12 | Neurology Progress Note ---
Interim History Interim History ROS Limited/Unobtainable: No Complaints: severe intractable pain ,mainly with movement -R hip/thigh/flank area up t Events: sl better on opiates Objective Physical Exam Last Vital Signs Date Time Temp Pulse Resp B/P Pulse Ox O2 Delivery O2 Flow Rate FiO2 03/03/17 11:26 98.1 67 19 131/79 98 Room Air 03/02/17 08:13 21 Laboratory Tests Test 03/03/17 07:30 White Blood Count 8.5 K/UL (4.8-10.8) Red Blood Count 3.58 M/UL (4.20-5.40) L Hemoglobin 10.8 G/DL (12.0-16.0) L Hematocrit 33.3 % (37.0-47.0) L Mean Corpuscular Volume 93 FL (80-99) Mean Corpuscular Hemoglobin 30.1 PG (27.0-31.0) Mean Corpuscular Hemoglobin Concent 32.4 G/DL (32.0-36.0) Red Cell Distribution Width 13.6 % (11.6-14.8) Platelet Count 235 K/UL (150-450) Mean Platelet Volume 6.4 FL (6.5-10.1) L Neutrophils (%) (Auto) 72.6 % (45.0-75.0) Lymphocytes (%) (Auto) 19.5 % (20.0-45.0) L Monocytes (%) (Auto) 6.5 % (1.0-10.0) Eosinophils (%) (Auto) 1.0 % (0.0-3.0) Basophils (%) (Auto) 0.4 % (0.0-2.0) Prothrombin Time 44.8 SEC (9.30-11.50) H Prothromb Time International Ratio 4.2 (0.9-1.1) H Sodium Level 142 mEQ/L (135-145) Potassium Level 4.1 mEQ/L (3.4-4.9) Chloride Level 100 mEQ/L (98-107) Carbon Dioxide Level 30 mEQ/L (20-30) Anion Gap 12 (5-15) Blood Urea Nitrogen 59 mg/dL (7-23) H Creatinine 2.0 mg/dL (0.5-0.9) H Estimat Glomerular Filtration Rate mL/min (>60) Glucose Level 191 mg/dL (74-106) H Uric Acid 11.2 mg/dL (3.0-7.5) H Calcium Level 9.8 mg/dL (8.6-10.2) Phosphorus Level 3.6 mg/dL (2.5-4.8) Magnesium Level 2.2 mg/dL (1.7-2.5) Total Bilirubin 0.6 mg/dL (0.0-1.2) Aspartate Amino Transf (AST/SGOT) 18 U/L (5-40) Alanine Aminotransferase (ALT/SGPT) 13 U/L (3-33) Alkaline Phosphatase 88 U/L (35-104) Total Protein 7.9 g/dL (6.6-8.7) Albumin 3.4 g/dL (3.5-5.2) L Globulin 4.5 g/dL Albumin/Globulin Ratio 0.7 (1.0-2.7) L Prealbumin Pending General: well developed, no acute distress, other - morbid obesity screaming when touching R foot R leg Head: normocophalic, atraumatic Neck: no rigidity EENT: benign Neurologic Exam Mental Status: awake, alert, normal cognition, other - anxious Speech: normal speech, no dysarthia Language: normal language, no aphasia Cranial Nerve II: fundus normal, visual moses, no papilledema Cranial Nerves III, IV, : PERRLA, EOMI, pupils Cranial Nerve V: normal facial sensations, temporales function normal, masseters function normal, pterygoids function normal Cranial Nerve VII: no facial asymmetry, normal facial expressions Cranial Nerve VIII: normal hearing, no nystagmus Cranial Nerve IX: normal palate elevation, gag response Cranial Nerve X: no voice hoarseness Cranial Nerve XI: SCM symmetric, trapezii function normal Cranial Nerve XII: tongue midline, no tongue atrophy/fasciculations Motor System: normal muscle tone, no involuntary movement, no muscle wasting, other - very tender R upper thigh /hip screams whenin pain unable ti lift legs 2 /2pain Sensory: normal pinprick Coordination: normal finger to nose bilaterally Deep Tendon Reflexes: 0 ankle (L), 0 ankle (R), 0 bicep (L), 0 bicep (R), 0 brachioradialis (L), 0 brachioradialis (R), 0 knee (L), 0 knee (R), 0 tricep (L) , 0 tricep (R) Reflexes: mute plantar (L), mute plantar (R) Impression/Recommendations Problems: (1) intractable pain R hip/thigh/flank /gluteus area (2) Morbid obesity (3) Renal insufficiency (4) r/o compartmental syndrom (5) r/o polymyalgia rheumatica , elevated ESR Status: stable Recommendations #[id number] orthopedic eval pain mgmt dilaudid 1mg q4 hr mri pelvis/hip pend MRI R thigh R foot mri. NERY CARVER Mar 03, 2017 12:12
[2017-03-03 16:10] VITALS: BP 142/80
--- NOTE | 2017-03-03 16:13 | Diagnostic Imaging Report ---
Indication: Back pain Technique: MRI examination of the Lumbar spine was performed in a 1.5 Toyin magnet. Sequences obtained include sagittal and axial T1 and T2 fast spin echo, and sagittal STIR. No IV gadolinium was given Comparison: none Findings: There is moderate scoliosis of the lumbar spine convex to the left. Multilevel narrowing and desiccation of intervertebral discs and multilevel endplate osteophyte formation and hypertrophy facets are demonstrated. All of the changes appear chronic and will be described in detail. There is no fracture or evidence of bone marrow edema within the lumbar spine. L1-2 demonstrates a moderate disease as described in the preceding . At this level the central canal is capacious. There is moderate narrowing of the right neural foramen. There is moderate right lateral recess stenosis. L2-3: Minimal retrolisthesis is present. Facet arthropathy noted. At this level there is mild to moderate bilateral foraminal stenosis and narrowing of the lateral recess. L3-4: The central canal is moderately narrowed. There is narrowing of the lateral recess and moderate bilateral foraminal stenosis. L4-5: Anterolisthesis is noted at this level. Severe hypertrophy of the facets demonstrated. Moderate central canal stenosis, narrowing of the lateral recess, moderate to severe foraminal stenosis demonstrated bilaterally. L5-S1: The central canal is capacious. There is moderate narrowing of the neural foramen bilaterally. Impression: No acute fracture or evidence of acute injury within the lumbar spine. Moderate to severe degenerative disease, chronic in nature involving the intervertebral discs and facet joints. Scoliosis. This results in multilevel narrowing of portions of the central canal, lateral recess and neural foramina described in the above report on a level by level basis. The 2 worst levels are L3-4 and L4-5.
--- NOTE | 2017-03-03 16:31 | Diagnostic Imaging Report ---
Indication: 81-year-old female with bilateral hip and pelvic pain. Altered mental status. Technique: MRI of the pelvis was performed in a 1.5 Toyin magnet. Sequences obtained include coronal and axial T1 fast spin-echo and STIR, sagittal T1 fast spin-echo. Comparison: None Findings: There is motion artifact limiting evaluation. There is considerable T2 hyperintense soft tissue edema both superficial and deep to the right tensor fascia gisel in the lateral aspect of the right hip. In addition, there is fluid in the greater trochanteric bursa and T2 hyperintense edema within the distal fibers of the right gluteus medius muscle and tendon. There is no brook rupture of the tendon at the greater trochanter. However the findings may indicate a partial tear or tendinopathy with an associated greater trochanteric bursitis. Taken together, the findings may be reflective of a contusion injury secondary to trauma. Please correlate clinically. There is no associated fracture or bone marrow contusion. There is no bone marrow edema within the greater trochanter, femoral neck and head.. Bone marrow signal within the sacrum and remainder of the pelvis appears normal. Small bilateral joint effusions are noted. Mariscal catheter is present in good position. Both hip joints show a narrowing and articular cartilage irregularities. Marginal spurs are noted. Similar findings noted in the sacroiliac joints bilaterally. Motion associated artifacts are noted limiting evaluation. Impression: Right greater trochanteric bursitis, moderate distal musculotendinous gluteus medius strain without brook rupture, and edema about the adjacent tensor fascia gisel. Findings could be on the basis of acute local direct trauma versus hyperadductive strain injury. Please correlate clinically. No acute fracture of the right hip or pelvis/sacrum identified. 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 Motion degradation of image quality.
--- NOTE | 2017-03-03 16:34 | Diagnostic Imaging Report ---
Indication: Chest pain Technique: A ventilation/perfusion scan was performed. Ventilation was performed utilizing 40 mCi of Technetium 99m-DTPA. Perfusion was performed with 6.2 mCi of technetium 99m-MAA injected intravenously. Multiple side by side projections obtained. Findings: Correlation made with chest x-ray from 02/26/17 Ventilation is heterogeneous. No significant defects are identified. Perfusion is heterogeneous. No significant defects are identified. Impression: Low probability for pulmonary embolus
--- NOTE | 2017-03-03 18:32 | Cardiology Progress Note ---
Assessment/Plan Assessment/Plan 1. Exertional dyspnea. 2. Peripheral edema. 3. Deep venous thrombosis recently. 4. Obesity. 5. Snoring. 6. Diabetes. 7. Hypertension. 8. sever hip and leg pain acute dueto tendiopathy ? 9. SVT duplex neg v/q low probablity all trop neg echo normal ef pum htn hip an leg pain blackwell as per pmd svt now controlled still has sig hip pain may dc tele soon Subjective Cardiovascular: Denies: chest pain, lightheadedness, palpitations Respiratory: Denies: shortness of breath Gastrointestinal/Abdominal: Denies: abdomen distended Subjective remains with sever hip an leg pain Objective Last 24 Hour Vital Signs Date Time Temp Pulse Resp B/P Pulse Ox O2 Delivery O2 Flow Rate FiO2 03/03/17 16:10 97.9 83 20 142/80 92 Room Air 03/03/17 11:26 98.1 67 19 131/79 98 Room Air 03/03/17 08:48 82 18 Room Air 03/03/17 08:03 78 134/57 03/03/17 08:02 78 134/57 03/03/17 07:56 97.6 78 19 134/57 94 Room Air 03/03/17 04:00 70 03/03/17 04:00 97.2 68 18 120/68 94 Room Air 03/03/17 00:00 68 03/03/17 00:00 97.7 72 18 119/68 94 Room Air 03/02/17 20:42 77 132/68 03/02/17 20:00 87 03/02/17 20:00 97.2 77 20 132/68 97 Room Air 03/02/17 19:26 82 18 Room Air General Appearance: alert Cardiovascular: normal rate, regular rhythm Respiratory/Chest: lungs clear, normal breath sounds Abdomen: normal bowel sounds, non tender, soft Extremities: no swelling Intake and Output 03/02/17 03/03/17 19:00 07:00 Intake Total 120 ml Output Total 300 ml 375 ml Balance -300 ml -255 ml Intake Oral 120 ml Output Urine Total 300 ml 375 ml Laboratory Tests Test 03/03/17 07:30 White Blood Count 8.5 K/UL (4.8-10.8) Red Blood Count 3.58 M/UL (4.20-5.40) L Hemoglobin 10.8 G/DL (12.0-16.0) L Hematocrit 33.3 % (37.0-47.0) L Mean Corpuscular Volume 93 FL (80-99) Mean Corpuscular Hemoglobin 30.1 PG (27.0-31.0) Mean Corpuscular Hemoglobin Concent 32.4 G/DL (32.0-36.0) Red Cell Distribution Width 13.6 % (11.6-14.8) Platelet Count 235 K/UL (150-450) Mean Platelet Volume 6.4 FL (6.5-10.1) L Neutrophils (%) (Auto) 72.6 % (45.0-75.0) Lymphocytes (%) (Auto) 19.5 % (20.0-45.0) L Monocytes (%) (Auto) 6.5 % (1.0-10.0) Eosinophils (%) (Auto) 1.0 % (0.0-3.0) Basophils (%) (Auto) 0.4 % (0.0-2.0) Prothrombin Time 44.8 SEC (9.30-11.50) H Prothromb Time International Ratio 4.2 (0.9-1.1) H Sodium Level 142 mEQ/L (135-145) Potassium Level 4.1 mEQ/L (3.4-4.9) Chloride Level 100 mEQ/L (98-107) Carbon Dioxide Level 30 mEQ/L (20-30) Anion Gap 12 (5-15) Blood Urea Nitrogen 59 mg/dL (7-23) H Creatinine 2.0 mg/dL (0.5-0.9) H Estimat Glomerular Filtration Rate mL/min (>60) Glucose Level 191 mg/dL (74-106) H Uric Acid 11.2 mg/dL (3.0-7.5) H Calcium Level 9.8 mg/dL (8.6-10.2) Phosphorus Level 3.6 mg/dL (2.5-4.8) Magnesium Level 2.2 mg/dL (1.7-2.5) Total Bilirubin 0.6 mg/dL (0.0-1.2) Aspartate Amino Transf (AST/SGOT) 18 U/L (5-40) Alanine Aminotransferase (ALT/SGPT) 13 U/L (3-33) Alkaline Phosphatase 88 U/L (35-104) C-Reactive Protein, Quantitative 15.4 mg/dL (< 0.5) H Total Protein 7.9 g/dL (6.6-8.7) Albumin 3.4 g/dL (3.5-5.2) L Globulin 4.5 g/dL Albumin/Globulin Ratio 0.7 (1.0-2.7) L Prealbumin Pending Anti-Nuclear Antibody Screen Pending BETTIE PIERRE Mar 03, 2017 18:32
[2017-03-03 20:00] VITALS: BP 145/91
[2017-03-04] VITALS: BP 140/84
[2017-03-04] MEDS: Norco 5mg/325mg tab ORAL SCH ×4 (03:50→16:06)
[2017-03-04 04:08] VITALS: BP 103/60
[2017-03-04] MEDS: HYDROmorphone 1mg/ml Carpuject IVP PRN ×2 (05:49→16:01)
[2017-03-04 06:03] LABS: INR 4.4 (0.9-1.1); PROTHROMBIN TIME 46.7 SEC (9.30-11.50)
[2017-03-04] MEDS: NovoLOG Insulin Flexpen SUBQ SCH ×2 (06:34→11:51)
--- NOTE | 2017-03-04 07:39 | Consultation ---
Consult Note Consult Note Studies done last evening. Reviewed and saw patient today. 81 yo female. poor historian. complains of rt leg pain for 1 week. no reports of falls or trauma. cannot move her hip knee or ankle due to pain. has not been out of bed. does not complaint of numbness/tingling. complains of pain. MRI lspine: multilevel degen changes and facet arthropathy. MRI pelvis/hip: no fx. significant muscular edema of rt gluteus. no tendon rupture or tear. Assessment/Plan rt LE pain. concern for CRPS/RSD no need for surgery would recommend oral steroid to reduce inflammation also should be seen by pain mgt for w/u and tx for possible CRPS ZARI AUGUSTIN Mar 04, 2017 07:39
[2017-03-04 08:00] VITALS: BP 143/77
[2017-03-04] MEDS: Metoprolol 25mg tab ORAL SCH (09:12)
[2017-03-04] MEDS: Docusate 100mg cap ORAL SCH ×2 (09:12→13:00)
[2017-03-04] MEDS ORDERED: DILAUDID8 MG PO (09:40)
[2017-03-04] MEDS ORDERED: GABAPENTIN100 MG ORAL (09:40)
[2017-03-04] MEDS ORDERED: ALLOPURINOL100 M1 ORAL (09:40)
[2017-03-04] MEDS ORDERED: INDOCIN25 MG/5 ML PO (09:41)
--- NOTE | 2017-03-04 11:17 | Discharge Summary 2 SIG ---
DATE OF ADMISSION: 02/25/2017 ORTHOPEDIC CONSULTATION CONSULTING PHYSICIAN: Lavelle Steele M.D. REFERRING PHYSICIAN: Consult called by Merissa Mac M.D. HISTORY OF PRESENT ILLNESS: The patient is a pleasant 81-year-old female with a history of hypertension, congestive heart failure, and prior DVTs, who presented to the emergency room on 02/25/2017 with shortness of breath. Orthopedic consult was called for progressive right leg pain that seems to have worsened during her stay. According to the history taken on date of admission, she was having some achiness in the legs although it appears per patient history as well as per chart review, the patient started developing significant right lower extremity pain over the weekend during her stay. The patient is a poor historian. It is difficult to gather history from her. However, she indicates there was no falls. There was no trauma. She has not injured that she recalls, but this leg pain has worsened considerably. The patient is seen at the bedside with her nurse and physical therapist and they indicate that the patient has been unable to move her right leg. She has not been able to move her hip, her knee or foot and ankle due to the severe pain. She has not been able to get out of bed due to severe pain. X-rays of the hip or pelvis, femur, foot and ankle have been done and were negative. MRI of the lumbar spine and pelvis has been done. Degenerative changes have been noted with some degenerative disk disease and facet arthropathy as well significant muscular edema on the right gluteal area was noted. The patient complains of entire right leg pain extending from her posterior hips down to her right foot. She denies numbness or tingling. PAST MEDICAL HISTORY: Hypertension, congestive heart failure, and history of DVT. PAST SURGICAL HISTORY: None. CURRENT MEDICATIONS: Please see chart. SOCIAL HISTORY: Apparently, she lives at home. She does have family. REVIEW OF SYSTEMS: Negative except what is mentioned in the history. PHYSICAL EXAMINATION: She is alert and oriented. She is answering questions although she is a very poor historian and cannot give an accurate description of how this pain developed upon palpation of anywhere on the right leg. She winces and yells in pain. It is very difficult to assess her. She cannot straighten out her right knee. She cannot extend her right hip even. Very gentle palpation on the right foot causes her to grimace and scream in pain. She is able to wiggle her toes. There is no evidence of skin breakdown or lower extremity swelling or erythema upon palpation of the lateral hip over the greater trochanter and the gluteus. She does have significant pain. She does not have much tenderness to palpation over the right knee. However over the tibia, she has tenderness over the foot and ankle. She has tenderness over femur. She has tenderness. X-rays and MRI also these were reviewed. X-rays were normal. MRIs of the lumbar spine and pelvis were reviewed. Pelvis MRI shows significant muscular edema around the greater trochanter and into the gluteus medius without tendon rupture with edema of the adjacent tensor fasciae latae. MRI of the lumbar spine showed multilevel degenerative disk issues and degenerative changes with facet arthropathy. There is some mild neural foraminal narrowing noted at multi levels. IMPRESSION: 1. Lumbar spine multilevel degenerative changes with facet arthropathy and some neural foraminal narrowing. Possibly causing some radicular pain. 2. MRI of the hip showing significant gluteus medius tendinopathy and greater trochanteric bursitis possibly related to trauma. 3. Possible trauma to the gluteal area causing neuropathic pain from the sciatic nerve. 4. Possible neuritis from lumbar spine underlying degenerative changes. 5. Possible complex regional pain syndrom/reflex sympathetic dystrophy. DISCUSSION: At this time, I discussed with the patient's nurse and physical therapist at bedside my findings. At this point, there is no need for acute orthopedic care. She should be managed in the hands of a pain management physician for workup of CRPS/RSD as well as medication and pharmacological management for neuritis in this area. She may benefit from a short course of oral steroids to reduce inflammation. She should work with physical therapy to move her leg and start walking. This was discussed with her and she understands our recommendations. Thank you for allowing me to participate in the care of this patient. If there are any questions or concerns, please do not hesitate to contact me. Lavelle Steele M.D. Anders Porter DR: JENNIFER JOB#: [id number] CC: JENNIFER
[2017-03-04 11:39] VITALS: BP 127/70
--- NOTE | 2017-03-04 11:44 | General Progress Note ---
Assessment/Plan Status: stable - from renal stand Assessment/Plan Status: Acute renal failure, likely due to over diuresis- Cr down 1.9 to 1.6 Possible CKD Hypo Kalemia Anemia- Low Iron HyperUrecemia Other: 1. Exertional dyspnea. 2. Peripheral edema. 3. Deep venous thrombosis recently. 4. Obesity. 5. Snoring. 6. Diabetes. 7. Hypertension. Plan: no labs today lee- hip MR negative monitor renal parameters- allopurinol- Venofer Mag and K supp. as needed Monitor Lytes Echo Ej Fx 55% Anemia blackwell optimize cardiac and pulm status hold Lasix ? Lower level care Subjective ROS Limited/Unobtainable: No Constitutional: Reports: malaise, other - hip pain Allergies: Coded Allergies: PENICILLINS (Unverified Allergy, Mild, SICK, 03/04/17) COPIED FROM UNCODED SECTION BENAZEPRIL (Unverified Allergy, Unknown, 02/21/17) CODEINE (Unverified Allergy, Unknown, 02/21/17) Objective Last 24 Hour Vital Signs Date Time Temp Pulse Resp B/P Pulse Ox O2 Delivery O2 Flow Rate FiO2 03/04/17 11:39 98.1 75 19 127/70 97 Room Air 03/04/17 09:12 82 143/77 03/04/17 09:11 82 143/77 03/04/17 08:44 77 18 Room Air 03/04/17 08:00 97.5 82 19 143/77 93 Room Air 03/04/17 08:00 87 03/04/17 06:19 98.1 03/04/17 04:49 98.1 03/04/17 04:08 98.1 90 19 103/60 96 Room Air 03/04/17 04:00 87 03/04/17 00:00 77 03/04/17 00:00 98.1 96 19 140/84 97 Room Air 03/03/17 22:34 86 145/91 03/03/17 20:13 86 18 Room Air 03/03/17 20:00 103 03/03/17 20:00 98.2 101 20 145/91 96 Room Air 03/03/17 16:10 97.9 83 20 142/80 92 Room Air 03/03/17 16:00 81 03/03/17 12:00 76 Intake and Output 03/03/17 03/04/17 19:00 07:00 Intake Total 680 ml 240 ml Output Total 700 ml 1150 ml Balance -20 ml -910 ml Intake Oral 680 ml 240 ml Output Urine Total 700 ml 1150 ml # Voids 2 1 Laboratory Tests 03/04/17 05:10: Prothrombin Time 46.7H, Prothromb Time International Ratio 4.4H Height (Feet): 5 Height (Inches): 6.00 Weight (Pounds): 213 General Appearance: no apparent distress Cardiovascular: normal rate Respiratory/Chest: decreased breath sounds Abdomen: soft Objective other PE not changed ELIZABET NIETO Mar 04, 2017 11:44
--- NOTE | 2017-03-04 12:05 | Neurology Progress Note ---
Interim History Interim History ROS Limited/Unobtainable: No Complaints: severe intractable pain ,mainly with movement -R hip/thigh/flank area up t Events: sl better on opiates Objective Physical Exam Last Vital Signs Date Time Temp Pulse Resp B/P Pulse Ox O2 Delivery O2 Flow Rate FiO2 03/04/17 11:39 98.1 75 19 127/70 97 Room Air 03/02/17 08:13 21 Laboratory Tests Test 03/04/17 05:10 Prothrombin Time 46.7 SEC (9.30-11.50) H Prothromb Time International Ratio 4.4 (0.9-1.1) H General: well developed, no acute distress, other - morbid obesity screaming when touching R foot R leg Head: normocophalic, atraumatic Neck: no rigidity EENT: benign Neurologic Exam Mental Status: awake, alert, normal cognition, other - anxious Speech: normal speech, no dysarthia Language: normal language, no aphasia Cranial Nerve II: fundus normal, visual moses, no papilledema Cranial Nerves III, IV, : PERRLA, EOMI, pupils Cranial Nerve V: normal facial sensations, temporales function normal, masseters function normal, pterygoids function normal Cranial Nerve VII: no facial asymmetry, normal facial expressions Cranial Nerve VIII: normal hearing, no nystagmus Cranial Nerve IX: normal palate elevation, gag response Cranial Nerve X: no voice hoarseness Cranial Nerve XI: SCM symmetric, trapezii function normal Cranial Nerve XII: tongue midline, no tongue atrophy/fasciculations Motor System: normal muscle tone, no involuntary movement, no muscle wasting, other - very tender R upper thigh /hip screams whenin pain unable ti lift legs 2 /2pain Sensory: normal pinprick Coordination: normal finger to nose bilaterally Deep Tendon Reflexes: 0 ankle (L), 0 ankle (R), 0 bicep (L), 0 bicep (R), 0 brachioradialis (L), 0 brachioradialis (R), 0 knee (L), 0 knee (R), 0 tricep (L) , 0 tricep (R) Reflexes: mute plantar (L), mute plantar (R) Impression/Recommendations Problems: (1) Greater trochanteric bursitis of right hip (2) Strain of gluteus medius of right lower extremity (3) intractable pain R hip/thigh/flank /gluteus area (4) Morbid obesity (5) Renal insufficiency Status: stable - from renal stand Recommendations #[id number] orthopedic eval done pain mgmt dilaudid 1mg q4 hr mri pelvis/hip note R foot xray local hot pachs course of steroids prednisone 60mg to taper in x 7days. NERY CARVER Mar 04, 2017 12:05
--- NOTE | 2017-03-04 12:48 | Diagnostic Imaging Report ---
Indication: Pain Comparison: None Findings: 3 views of the right foot were obtained. There is soft tissue swelling present. Vascular calcifications are noted. Bones are osteopenic. Small osteophytes demonstrated in the midfoot. There is mild hallux valgus. Bunion noted. Impression: No acute injury identified. No plain film evidence for myelitis. Generalized soft tissue swelling nonspecific in nature
[2017-03-04] MEDS ORDERED: Indomethacin 25mg cap ORAL SCH (13:00)
[2017-03-04] MEDS ORDERED: PredniSONE 20mg tab ORAL ONE (13:55)
--- NOTE | 2017-03-04 18:48 | Pulmonology Progress Note ---
Assessment/Plan Problems: (1) Bursitis (2) Peripheral edema (3) CHF (congestive heart failure) (4) ATN (acute tubular necrosis) (5) Chronic deep vein thrombosis (DVT) Assessment/Plan improving check echo renal and cardio evaluation appreciated pt/ot add antiinflammatory dc today to detention Subjective ROS Limited/Unobtainable: No Constitutional: Reports: no symptoms HEENT: Repors: no symptoms Respiratory: Reports: no symptoms Allergies: Coded Allergies: PENICILLINS (Unverified Allergy, Mild, SICK, 03/04/17) COPIED FROM UNCODED SECTION BENAZEPRIL (Unverified Allergy, Unknown, 02/21/17) CODEINE (Unverified Allergy, Unknown, 02/21/17) Objective Last 24 Hour Vital Signs Date Time Temp Pulse Resp B/P Pulse Ox O2 Delivery O2 Flow Rate FiO2 03/04/17 12:00 69 03/04/17 11:39 98.1 75 19 127/70 97 Room Air 03/04/17 09:12 82 143/77 03/04/17 09:11 82 143/77 03/04/17 08:44 77 18 Room Air 03/04/17 08:00 97.5 82 19 143/77 93 Room Air 03/04/17 08:00 87 03/04/17 06:19 98.1 03/04/17 04:49 98.1 03/04/17 04:08 98.1 90 19 103/60 96 Room Air 03/04/17 04:00 87 03/04/17 00:00 77 03/04/17 00:00 98.1 96 19 140/84 97 Room Air 03/03/17 22:34 86 145/91 03/03/17 20:13 86 18 Room Air 03/03/17 20:00 103 03/03/17 20:00 98.2 101 20 145/91 96 Room Air Intake and Output 03/03/17 03/04/17 19:00 07:00 Intake Total 680 ml 240 ml Output Total 700 ml 1150 ml Balance -20 ml -910 ml Intake Oral 680 ml 240 ml Output Urine Total 700 ml 1150 ml # Voids 2 1 General Appearance: WD/WN HEENT: normocephalic Respiratory/Chest: chest wall non-tender, lungs clear Breasts: no masses Cardiovascular: normal peripheral pulses, no JVD Abdomen: soft, non tender Genitourinary: normal external genitalia Laboratory Tests 03/04/17 05:10: Prothrombin Time 46.7H, Prothromb Time International Ratio 4.4H BEVERLEY JOE Mar 04, 2017 18:48
--- NOTE | 2017-03-06 09:45 | Cardiology Report ---
APPROVED REPORT EKG Measurement Heart [id number] Sinus rhythm with frequent premature ventricular complexes Minimal voltage criteria for LVH, may be normal variant Cannot rule out Anterior infarct, age undetermined Abnormal ECG
--- NOTE | 2017-03-06 19:56 | Discharge Summary ---
Discharge Summary Hospital Course Date of Admission Feb 25, 2017 at 15:35 Date of Discharge Mar 04, 2017 at 16:00 Admitting Diagnosis SOB HPI Carlie Nieves is a 81 year old female who was admitted on Feb 25, 2017 at 15:35 for Shortness Of Breath Hospital Course [id number] Discharge Discharge Disposition Patient was discharged to snf Discharge Diagnoses: Aria Rodriguez NP Mar 06, 2017 19:56
--- NOTE | 2017-03-07 02:00 | Discharge Summary 2 SIG ---
DATE OF ADMISSION: 02/25/2017 DATE OF DISCHARGE: 03/04/2017 CONSULTANTS: 1. Sp Leslie M.D. 2. Kin Cohen M.D. 3. Lavelle Steele M.D. 4. James Almonte M.D. 5. Herlinda Bethea M.D. BRIEF HOSPITAL COURSE: The patient is an 81-year-old female with history of hypertension, CHF, and DVT, presented to ED for evaluation of shortness of breath and one week bilateral leg pain with swelling. She has a history of CHF and has been taking water pills for swelling in her legs. On evaluation at ED, potassium was 2.8 and creatinine was elevated to 1.9. Troponin was negative. Chest x-ray done showed cardiomegaly. EKG was in normal sinus rhythm. Venous Duplex of lower extremity was negative for acute DVT, but with re-cannulized thrombus on the left leg. She was admitted to telemetry for acute CHF exacerbation, kidney failure with ATN, and peripheral edema with chronic DVT. She was continued on her Coumadin and diuretics. Echocardiogram performed showed normal left ventricular systolic function and ejection fraction of 55. There was no significant valvular regurgitation. Pulmonary artery systolic pressure is 59 suggestive of pulmonary hypertension. ProBNP was in the 80s. On telemetry, she developed bouts of SVT and was started on Lopressor. The patient had acute renal failure likely due to over diuresis. Renal ultrasound showed increased renal cortical echogenicity. Creatinine improved. Uric acid was elevated to 14. She was given allopurinol and Indocin. She had intractable pain on both lower extremities, predominantly in the right and had swelling in the right ankle. On neurologic examination, the patient had normal muscle tone and strength in both upper extremities. She was reluctant to flex the right leg, but with assistance, she was able to flex the left leg, although when trying to lift, she was screaming from pain in her hip region. The right leg was flexed, everted, and had acute pain, when palpated in the right gluteus, right hip region, and right foot. There was no muscle wasting noted. Deep tendon reflexes 2+ bilaterally including both knee jerks and ankle jerks. Sensory examination was normal to pin stimulation of both upper and lower extremities. The patient was unable to sit or stand. She was given pain management consisting of Dora and Dilaudid. X-rays and MRI of the leg and hip were done. Orthopedic consultation was obtained. X-rays were negative. 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 No acute fracture identified. Lumbar spine MRI showed no acute fracture with moderate to severe degenerative disease and scoliosis. There was no acute surgical intervention needed and was advised that she would benefit from physical therapy and short course of steroid. She was given physical and occupational therapy and was given Indocin, allopurinol, gabapentin, and and Dilaudid. She was eventually discharged back to SNF. FINAL DIAGNOSES: 1. Right hip bursitis. 2. Acute renal failure with acute tubular necrosis. 3. Chronic deep venous thrombosis. 4. Strain on gluteus medius of the right lower extremity. 5. Morbid obesity. 6. Intractable pain on the right hip, thigh, flank, and gluteus area. 7. Hypokalemia. 8. Chronic kidney disease. 9. Anemia of iron deficiency. 10. Hyperuricemia. 11. Supraventricular tachycardia, resolved. 12. Hypertension. 13. Exertional dyspnea. 14. Moderate pulmonary hypertension. 15. Congestive heart failure with mild diastolic dysfunction. 16. VQ scan, low probability for pulmonary embolism. Merissa Mac M.D. I have been assigned to dictate discharge summary on this account and I was not involved in the patient's management. Aria Rodriguez N.P. DR: James JOB#: [id number] CC:
== END 2017-03-04 16:00 | DRG 557 ==
LOC: EDUNIT# 13:34 → EDBD 13:34 → EMR 14:32 → INTOOBSV 15:35 → OBSVTOIN 15:35 → 2E 15:35 → EDBEDREQ 17:44
DX: M70.61 Trochanteric bursitis, right hip (principal); N17.0 Acute kidney failure with tubular necrosis; R06.00 Dyspnea, unspecified; I47.1 Supraventricular tachycardia; I13.0 Hypertensive heart and chronic kidney disease with heart failure and stage 1 through stage 4 chronic kidney disease, or unspecified chronic kidney disease; E11.22 Type 2 diabetes mellitus with diabetic chronic kidney disease; I50.30 Unspecified diastolic (congestive) heart failure; G90.521 Complex regional pain syndrome I of right lower limb; I82.509 Chronic embolism and thrombosis of unspecified deep veins of unspecified lower extremity; I27.2 Other secondary pulmonary hypertension; Z79.01 Long term (current) use of anticoagulants; Z88.6 Allergy status to analgesic agent; Z88.0 Allergy status to penicillin; Z88.8 Allergy status to other drugs, medicaments and biological substances; Z86.73 Personal history of transient ischemic attack (TIA), and cerebral infarction without residual deficits; K21.9 Gastro-esophageal reflux disease without esophagitis; E11.9 Type 2 diabetes mellitus without complications; I10 Essential (primary) hypertension; M10.9 Gout, unspecified; M51.16 Intervertebral disc disorders with radiculopathy, lumbar region; M48.06 Spinal stenosis, lumbar region; S76.811A Strain of other specified muscles, fascia and tendons at thigh level, right thigh, initial encounter; X58.XXXA Exposure to other specified factors, initial encounter; N18.9 Chronic kidney disease, unspecified; E87.6 Hypokalemia; M54.31 Sciatica, right side; D50.9 Iron deficiency anemia, unspecified; E66.01 Morbid (severe) obesity due to excess calories; S76.011A Strain of muscle, fascia and tendon of right hip, initial encounter
CPT/HCPCS: 36415; 71010; 72148; 72170; 72195; 76775; 78579; 78580; 80048; 80053; 80061; 80069; 81001; 82550; 82553; 82607; 82728; 82746; 82962; 82977; 83036; 83540; 83550; 83735; 83880; 84100; 84133; 84134; 84300; 84443; 84484; 84550; 85025; 85610; 85651; 85730; 86039; 86140; 86431; 87081; 89050; 93005; 93306; 93970; 94664; 96375; A9503; J1815; J8499

== ENCOUNTER 2018-08-14 12:27 | Emergency (ER) | payer OTHER, MEDICAID ==
[~2018-08-14] VITALS: Ht 167.6 cm; Wt 97.5 kg
[~2018-08-14 12:27] MED LIST changes: +ALLOPURINOL100 M1 ORAL; +ATORVASTATIN CA20 MG ORAL; +CARTIA XT240 MG ORAL; +DILAUDID8 MG PO; +GABAPENTIN100 MG ORAL; +HYDRALAZINE HCL25 M1 ORAL; +INDOCIN25 MG/5 ML PO; +PANTOPRAZOLE SO40 MG ORAL; +VITAMIN D22000 UNIT PO; +WARFARIN SODIUM4 MG ORAL; +XALATAN2.5 ML BOTH EYES; +ZAROXOLYN2.5 MG ORAL
[2018-08-14] MEDS ORDERED: Sodium Chloride 500ML 500 ML IV ONE (12:39)
[2018-08-14] MEDS ORDERED: Isovue-300 100ml vial INJ PRN (12:45)
[2018-08-14 13:03] LABS: HEMATOCRIT 23.3 % (37.0-47.0); HEMOGLOBIN 7.4 G/DL (12.0-16.0); MEAN CORPUSCULAR VOLUME 99 FL (80-99); PLATELET COUNT 162 K/UL (150-450); RED BLOOD COUNT 2.36 M/UL (4.20-5.40); RED CELL DISTRIBUTION WIDTH 16.7 % (11.6-14.8)
[2018-08-14 13:04] LABS: APPEARANCE,URINE CLEAR; BILIRUBIN, URINE NEGATIVE (NEGATIVE); COLOR,URINE PALE YELLOW; GLUCOSE, URINE (UA) NEGATIVE (NEGATIVE); KETONES,URINE NEGATIVE (NEGATIVE); LEUKOCYTE ESTERASE ,URINE NEGATIVE (NEGATIVE); NITRITE,URINE NEGATIVE (NEGATIVE); PH,URINE 5 (4.5-8.0); PROTEIN,URINE NEGATIVE (NEGATIVE); UROBILINOGEN,URINE NORMAL MG/DL (0.0-1.0)
[2018-08-14 13:15] LABS: ANION GAP 16 mmol/L (5-15); BLOOD UREA NITROGEN 49 mg/dL (7-18); CALCIUM 8.5 MG/DL (8.5-10.1); CARBON DIOXIDE 19 MMOL/L (21-32); CHLORIDE 113 MMOL/L (98-107); CREATININE 1.8 MG/DL (0.55-1.30); POTASSIUM 3.7 MMOL/L (3.5-5.1); SODIUM 148 MMOL/L (136-145)
[2018-08-14 13:31] LABS: ALANINE AMINOTRANSFERASE 52 U/L (12-78); ALBUMIN 2.9 G/DL (3.4-5.0); ALBUMIN/GLOBULIN RATIO 0.9 (1.0-2.7); ALKALINE PHOSPHATASE 91 U/L (46-116); ASPARTATE AMINO TRANSFERASE 45 U/L (15-37); BILIRUBIN,TOTAL 1.1 MG/DL (0.2-1.0)
[2018-08-14 13:34] LABS: BILIRUBIN,DIRECT 0.3 MG/DL (0.0-0.3)
[2018-08-14 13:44] VITALS: BP 85/42
--- NOTE | 2018-08-14 14:07 | Diagnostic Imaging Report ---
Indication: Abdominal pain Technique: Spiral acquisitions obtained through the abdomen and pelvis. No oral contrast utilized, per emergency room physician request No IV contrast utilized, per referring physician request.. Multiplanar reconstructions were generated. Total dose length product 983.09 mGycm. CTDIvol(s) 19.51 mGy. Dose reduction achieved using automated exposure control Comparison: None Findings: Lack of enteric contrast limits assessment of the GI tract. The appendix is normal. There is mild rectal distention with stool. There is minimal edema of the perirectal fat and equivocal slight wall thickening of the rectum. The cecum is mildly distended with gas and stool. No downstream obstructive lesion is demonstrated. No evidence of diverticulosis or diverticulitis. No small bowel distention. No free or loculated intraperitoneal gas or fluid is evident. There is a large paraesophageal hiatal hernia demonstrated. This contains nearly half of the stomach. The duodenum is unremarkable. Lack of IV contrast limits assessment of the solid organs. The liver demonstrates dystrophic calcifications in the inferior right lobe. The gallbladder is not visualized, presumed surgically removed. There is a subcentimeter low-attenuation lesion in segment 4A which is too small to characterize. The extrahepatic bile ducts are dilated, common bile duct measuring up to 13 mm in diameter. No downstream obstructive lesion is demonstrated. The pancreas contains a calcification in the body, is otherwise unremarkable. Spleen, adrenals are unremarkable. There is mild fullness to the right renal collecting system as well as a prominent extrarenal pelvis and mild ectasia of the proximal right ureter. Normal caliber distal right ureter and no evidence of obstructive lesion. The bladder is unremarkable. No solid mass or adenopathy. The uterus is absent, presumably postsurgically. Neither ovary can be identified. No adnexal mass is demonstrated. The left lung base demonstrates a moderate pleural effusion. There is compressive atelectasis of the adjacent portions of the left lower lobe. There is minimal dependent atelectasis of the right lung. The bones demonstrate thoracolumbar scoliotic deformity and extensive degenerative spondylosis changes. There are degenerative changes of both hips as well. Impression: Limited assessment of the GI tract, due to lack of enteric contrast administration Mild rectal distention with stool, early fecal impaction possible. Equivocal slight wall thickening of the rectum and minimal edema of the perirectal fat could indicate mild stercoral colitis changes Large paraesophageal hiatal hernia Surgically absent gallbladder. Dilated extra hepatic bile ducts. Probably related to age and postcholecystectomy state as no downstream obstructive lesion is visualized. Nonetheless, correlation with liver function tests is recommended. Moderate left pleural effusion. Resultant compressive atelectasis of the adjacent portions of the left lower lobe. Minimal right basilar atelectasis as well Other findings as noted, including degenerative changes of both hips, degenerative spondylosis, dystrophic calcifications within the right hepatic lobe, small pancreatic calcification The CT scanner at [facility] is accredited by the [employer] and the scans are performed using protocols designed to limit radiation exposure to as low as reasonably achievable to attain images of sufficient resolution adequate for diagnostic evaluation.
[2018-08-14] MEDS ORDERED: Acetaminophen 500mg (ES) tab ORAL ONE (14:15)
--- NOTE | 2018-08-14 14:45 | Emergency Room Report ---
History of Present Illness General Chief Complaint: Nausea Source: Patient, EMS (Bin Pollock MD) Present Illness HPI 82-year-old female presents ED for evaluation. Complaining of abdominal pain with nausea and vomiting. Started this morning. Pain is epigastric, 9 out of 10, nonradiating. Notes multiple episodes of vomiting. Denies chest pain or shortness of breath. Denies fevers or chills. Denies sick contacts recent travel. No other aggravating relieving factors. Denies any other associated symptoms (Bin Pollock MD) Allergies: Coded Allergies: PENICILLINS (Unverified Allergy, Mild, SICK, 03/04/17) COPIED FROM UNCODED SECTION BENAZEPRIL (Unverified Allergy, Unknown, 02/21/17) CODEINE (Unverified Allergy, Unknown, 02/21/17) Patient History Past Medical History: DM, HTN, CVA/TIA Past Surgical History: none Pertinent Family History: none Social History: Denies: smoking, alcohol use, drug use Now: No Immunizations: UTD Reviewed Nursing Documentation: PMH: Agreed; PSxH: Agreed (Bin Pollock MD) Nursing Documentation-PMH Past Medical History: No History, Except For Hx Hypertension: Yes Hx Diabetes: Yes Hx Cancer: No Hx Cerebrovascular Accident: Yes Hx Vertigo: Yes (Bin Pollock MD) Review of Systems All Other Systems: negative except mentioned in HPI (Bin Pollock MD) Physical Exam Vital Signs Date Time Temp Pulse Resp B/P (MAP) Pulse Ox O2 Delivery O2 Flow Rate FiO2 08/14/18 12:20 98.1 74 16 112/68 95 Room Air Sp02 EP Interpretation: reviewed, normal General Appearance: no apparent distress, alert, GCS 15, non-toxic Head: normocephalic, atraumatic Eyes: bilateral eye normal inspection, bilateral eye PERRL ENT: hearing grossly normal, normal pharynx, no angioedema, normal voice Neck: full range of motion, supple/symm/no masses Respiratory: chest non-tender, normal breath sounds, speaking full sentences, other - epigastric Cardiovascular #1: regular rate, rhythm, no edema Cardiovascular #2: 2+ carotid (R), 2+ carotid (L), 2+ radial (R), 2+ radial (L) , 2+ dorsalis pedis (R), 2+ dorsalis pedis (L) Gastrointestinal: normal bowel sounds, non tender, soft, non-distended, no guarding, no rebound Rectal: deferred Genitourinary: normal inspection, no CVA tenderness Musculoskeletal: back normal, gait/station normal, normal range of motion, non- tender Neurologic: alert, oriented x3, responsive, motor strength/tone normal, sensory intact, speech normal Psychiatric: judgement/insight normal, memory normal, mood/affect normal, no suicidal/homicidal ideation Reflexes: 3+ bicep (R), 3+ bicep (L), 3+ tricep (R), 3+ tricep (L), 3+ knee (R) , 3+ knee (L) Skin: normal color, no rash, warm/dry, well hydrated Lymphatic: no adenopathy (Bin Pollock MD) Medical Decision Making Diagnostic Impression: Primary Impression: ATN (acute tubular necrosis) Additional Impressions: Abdominal pain Qualified Codes: R10.10 - Upper abdominal pain, unspecified Vomiting Qualified Codes: R11.2 - Nausea with vomiting, unspecified Anemia Labs Test 08/14/18 12:35 08/14/18 13:00 White Blood Count 8.0 K/UL (4.8-10.8) Red Blood Count 2.36 M/UL (4.20-5.40) Hemoglobin 7.4 G/DL (12.0-16.0) Hematocrit 23.3 % (37.0-47.0) Mean Corpuscular Volume 99 FL (80-99) Mean Corpuscular Hemoglobin 31.3 PG (27.0-31.0) Mean Corpuscular Hemoglobin Concent 31.7 G/DL (32.0-36.0) Red Cell Distribution Width 16.7 % (11.6-14.8) Platelet Count 162 K/UL (150-450) Mean Platelet Volume 7.2 FL (6.5-10.1) Neutrophils (%) (Auto) % (45.0-75.0) Lymphocytes (%) (Auto) % (20.0-45.0) Monocytes (%) (Auto) % (1.0-10.0) Eosinophils (%) (Auto) % (0.0-3.0) Basophils (%) (Auto) % (0.0-2.0) Differential Total Cells Counted 100 Neutrophils % (Manual) 72 % (45-75) Lymphocytes % (Manual) 20 % (20-45) Monocytes % (Manual) 6 % (1-10) Eosinophils % (Manual) 2 % (0-3) Basophils % (Manual) 0 % (0-2) Band Neutrophils 0 % (0-8) Platelet Estimate Adequate Platelet Morphology Normal Polychromasia 1+ Hypochromasia 2+ Anisocytosis 2+ Ovalocytes 2+ Nica Cells 2+ Schistocytes 1+ Sodium Level 148 MMOL/L (136-145) Potassium Level 3.7 MMOL/L (3.5-5.1) Chloride Level 113 MMOL/L (98-107) Carbon Dioxide Level 19 MMOL/L (21-32) Anion Gap 16 mmol/L (5-15) Blood Urea Nitrogen 49 mg/dL (7-18) Creatinine 1.8 MG/DL (0.55-1.30) Estimat Glomerular Filtration Rate mL/min (>60) Glucose Level 268 MG/DL (74-106) Calcium Level 8.5 MG/DL (8.5-10.1) Total Bilirubin 1.1 MG/DL (0.2-1.0) Direct Bilirubin 0.3 MG/DL (0.0-0.3) Aspartate Amino Transf (AST/SGOT) 45 U/L (15-37) Alanine Aminotransferase (ALT/SGPT) 52 U/L (12-78) Alkaline Phosphatase 91 U/L (46-116) Troponin I 0.017 ng/mL (0.000-0.056) Total Protein 6.0 G/DL (6.4-8.2) Albumin 2.9 G/DL (3.4-5.0) Globulin 3.1 g/dL Albumin/Globulin Ratio 0.9 (1.0-2.7) Lipase 125 U/L (73-393) Urine Color Pale yellow Urine Appearance Clear Urine pH 5 (4.5-8.0) Urine Specific [place] 1.015 (1.005-1.035) Urine Protein Negative (NEGATIVE) Urine Glucose (UA) Negative (NEGATIVE) Urine Ketones Negative (NEGATIVE) Urine Blood 2+ (NEGATIVE) Urine Nitrite Negative (NEGATIVE) Urine Bilirubin Negative (NEGATIVE) Urine Urobilinogen Normal MG/DL (0.0-1.0) Urine Leukocyte Esterase Negative (NEGATIVE) Urine RBC 2-4 /HPF (0 - 2) Urine WBC 0 /HPF (0 - 2) Urine Squamous Epithelial Cells Occasional /LPF Urine Bacteria Occasional /HPF (NONE) (Bin Pollock MD) EKG Diagnostic Results Rate: normal Rhythm: NSR ST Segments: no acute changes ASA given to the pt in ED: No (Bin Pollock MD) Rhythm Strip Diag. Results EP Interpretation: yes Rhythm: NSR, no PVC's, no ectopy (Bin Pollock MD) Last Vital Signs Date Time Temp Pulse Resp B/P (MAP) Pulse Ox O2 Delivery O2 Flow Rate FiO2 08/14/18 13:44 98.0 75 17 85/42 98 Room Air (Bin Pollock MD) Disposition: ADMITTED INPATIENT - Discussed with the transfer physician. Patient stable for transfer Referrals: NOT CHOSEN IPA/MD,REFERRING (PCP) Bin Pollock MD Aug 14, 2018 14:45 MELANIE MCNAMARA Aug 14, 2018 15:45
[2018-08-14] MEDS ORDERED: Morphine Sulfate 2mg/ml Inj IVP ONE (15:00)
[2018-08-14 15:39] LABS: INR 1.5 (0.9-1.1)
[2018-08-14 15:44] VITALS: BP 108/48
[2018-08-14] MEDS ORDERED: Morphine Sulfate 4mg/ml Inj (IV/IM USE ONLY) IVP ONE (16:15)
[2018-08-14 18:06] VITALS: BP 111/86
== END 2018-08-14 18:07 | disposition other institution (70) ==
LOC: EDBD 12:27 → EMR 13:56 → CANBEDREQ 18:05 → EMR 18:07
DX: N17.0 Acute kidney failure with tubular necrosis (principal); R10.9 Unspecified abdominal pain; R11.2 Nausea with vomiting, unspecified; D64.9 Anemia, unspecified; I10 Essential (primary) hypertension; E11.9 Type 2 diabetes mellitus without complications; Z86.73 Personal history of transient ischemic attack (TIA), and cerebral infarction without residual deficits; Z88.0 Allergy status to penicillin; Z88.5 Allergy status to narcotic agent; Z88.8 Allergy status to other drugs, medicaments and biological substances
CPT/HCPCS: 36415; 74176; 80053; 81003; 82248; 83690; 84484; 85007; 85025; 85610; 85730; 86850; 86900; 86901; 93005; 96361; 96374; 96375; 96376; 99285; J2270; J2405; S0028

== ENCOUNTER 2019-10-01 14:55 | Inpatient (IN) | payer MEDICARE, MEDICAID ==
[~2019-10-01] VITALS: Ht 167.6 cm; Wt 90.7 kg
[~2019-10-01 14:55] MED LIST changes: +ADALAT10 MG ORAL; +ASPIRIN-LOW81 MG ORAL; +BENADRYL25 M3 PO; +CLONIDINE0.1 MG GT; +COREG3.125 MG ORAL; +COUMADIN1 MG ORAL; +FUROSEMIDE20 M1 ORAL; +LANTUS SOL100 UNIT/1 SUBQ; +NITROFURANTOIN100 M2 ORAL; +ROBAXIN-750750 MG PO; +UNOBMED
[2019-10-01 15:08] VITALS: BP 156/62
--- NOTE | 2019-10-01 15:08 | NUR ---
ED Nurse Note: PT BROUGHT IN BY AMBULANCE FROM HOME DUE TO LOW HGB OF 5.7. PT WAS SEEN BY HER PCP LAST WEEK AND DID BLOOD TEST AND PT WAS RECOMMENDED TO GO TO ED. PT IS AAO X4, NON AMBULATORY WITH SOB UPON EXERTION. SKIN IS PALE. DENIES CP.
--- NOTE | 2019-10-01 15:10 | NUR ---
ED Nurse Note: Patient taking Eliquis for DVT. Informed RICK Francisco.
--- NOTE | 2019-10-01 15:15 | Emergency Room Report ---
History of Present Illness General Chief Complaint: Abnormal Labs Source: Patient, Medical Record, EMS Present Illness HPI Disclaimer: Please note that this report is being documented using DRAGON technology. This can lead to erroneous entry secondary to incorrect interpretation by the dictating instrument. HPI: 84-year-old female history of CHF, mostly bedbound, CVA, DVT on Eliquis presents for evaluation from her nursing facility for anemia. Blood drawn 3 days ago resulted showing a hemoglobin of 5.7 today. Patient denies any shortness of breath or lightheadedness. Reports some weakness though difficult to distinguish from baseline weakness. Denies any dark or tarry stools. Had one episode of emesis yesterday that was mild and denied any hematemesis or coffee-ground emesis. Has required transfusions in the past. She states she takes vitamins for anemia but does not know which ones exactly. No other complaints at this time. Denies chest pain, shortness of breath, fever chills, nausea, vomiting, diarrhea, dysuria, hematuria PMH: Anemia, CHF, edema, CVA, DVT PSH: Reviewed Allergies: Benzapril, codeine, penicillin Social Hx: Denies drug or alcohol abuse Allergies: Coded Allergies: PENICILLINS (Unverified Allergy, Mild, SICK, 03/04/17) COPIED FROM UNCODED SECTION BENAZEPRIL (Unverified Allergy, Unknown, 02/21/17) CODEINE (Unverified Allergy, Unknown, 02/21/17) TRAMADOL (Verified Allergy, Unknown, 10/01/19) Nursing Documentation-PMH Past Medical History: No History, Except For Hx Hypertension: Yes - Iron deficiency Anemia Hx Asthma: Yes Hx Diabetes: Yes - diabetic neuropathy Hx Cancer: No Hx Gastrointestinal Problems: Yes - cholecystectomy , hystrectomy, colitis, esophagitis Hx Neurological Problems: Yes - dementia Hx Cerebrovascular Accident: Yes Hx Vertigo: Yes Review of Systems All Other Systems: negative except mentioned in HPI Physical Exam Vital Signs Date Time Temp Pulse Resp B/P (MAP) Pulse Ox O2 Delivery O2 Flow Rate FiO2 10/01/19 14:58 74 14 117/70 (86) 99 Room Air General: Awake and alert, no acute distress HEENT: NC/AT. EOMI. Cardiovascular: RRR. S1 and S2 normal. No murmur appreciated Resp: Normal work of breathing. No cough, wheezing or crackles appreciated Abdomen: Abdomen is soft, nondistended. Nontender. FOBT is negative. Skin: Intact. No abrasions, laceration or rash over the exposed skin MSK: Normal tone and bulk. Moving all extremities. No obvious deformity. 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 Neuro: Awake and alert. Mentating appropriately. Procedures Critical Care Time Critical Care Time Total critical care time: Approximately 31 minutes Due to a high probability of clinically significant, life threatening deterioration, the patient required the highest level of preparedness to intervene emergently and I personally spent this critical care time directly and personally managing the patient. This critical care time included obtaining a history, examining the patient, pulse oximetry, ordering and reviewing studies , ordering treatments, evaluating response to treatment and updating management plan as needed, frequent reassessment and discussion with other providers as well as arranging for ultimate disposition. This critical to care time was performed to assess and manage the high probability of life-threatening deterioration that could result in multiorgan failure. This critical care time is separate from the separately billable procedures and treating other patients. Medical Decision Making Diagnostic Impression: Primary Impression: Anemia ER Course 84-year-old female presents evaluation of hemoglobin 5.7 noted on outpatient labs. She is on Eliquis for treatment of lower extremity DVT. She is asymptomatic otherwise. Has required transfusion in the past and has a history of chronic anemia for which she takes multivitamins. FOBT is negative. Will send repeat labs to confirm low hemoglobin counts and prepare for transfusion. If hemoglobin is as low as reported she will require admission. Laboratory Tests Test 10/01/19 15:15 White Blood Count 4.3 K/UL (4.8-10.8) L Red Blood Count 3.05 M/UL (4.20-5.40) L Hemoglobin 6.1 G/DL (12.0-16.0) *L Hematocrit 21.9 % (37.0-47.0) L Mean Corpuscular Volume 72 FL (80-99) L Mean Corpuscular Hemoglobin 20.0 PG (27.0-31.0) L Mean Corpuscular Hemoglobin Concent 27.8 G/DL (32.0-36.0) L Red Cell Distribution Width 18.4 % (11.6-14.8) H Platelet Count 236 K/UL (150-450) Mean Platelet Volume 9.9 FL (6.5-10.1) Neutrophils (%) (Auto) % (45.0-75.0) Lymphocytes (%) (Auto) % (20.0-45.0) Monocytes (%) (Auto) % (1.0-10.0) Eosinophils (%) (Auto) % (0.0-3.0) Basophils (%) (Auto) % (0.0-2.0) Differential Total Cells Counted 100 Neutrophils % (Manual) 53 % (45-75) Lymphocytes % (Manual) 42 % (20-45) Monocytes % (Manual) 2 % (1-10) Eosinophils % (Manual) 3 % (0-3) Basophils % (Manual) 0 % (0-2) Band Neutrophils 0 % (0-8) Platelet Estimate Adequate Platelet Morphology Normal Polychromasia 1+ Hypochromasia 3+ Anisocytosis 1+ Microcytosis 1+ Ovalocytes 1+ [place] Cells 1+ Prothrombin Time 11.8 SEC (9.30-11.50) H Prothrombin Time INR 1.1 (0.9-1.1) Activated Partial Thromboplast Time 29 SEC (23-33) Sodium Level 145 MMOL/L (136-145) Potassium Level 4.4 MMOL/L (3.5-5.1) Chloride Level 112 MMOL/L (98-107) H Carbon Dioxide Level 22 MMOL/L (21-32) Anion Gap 11 mmol/L (5-15) Blood Urea Nitrogen 29 mg/dL (7-18) H Creatinine 1.2 MG/DL (0.55-1.30) Estimate Glomerular Filtration Rate 51.9 mL/min (>60) Glucose Level 161 MG/DL (74-106) H Calcium Level 9.3 MG/DL (8.5-10.1) Total Bilirubin 0.5 MG/DL (0.2-1.0) Aspartate Amino Transferase (AST) 32 U/L (15-37) Alanine Aminotransferase (ALT) 17 U/L (12-78) Alkaline Phosphatase 56 U/L (46-116) Total Protein 7.7 G/DL (6.4-8.2) Albumin 3.3 G/DL (3.4-5.0) L Globulin 4.4 g/dL Albumin/Globulin Ratio 0.8 (1.0-2.7) L Reevaluation Time: 19:20 Last Vital Signs Date Time Temp Pulse Resp B/P (MAP) Pulse Ox O2 Delivery O2 Flow Rate FiO2 10/01/19 14:58 74 14 117/70 (86) 99 Room Air Reevaluation Impression Anemia was concern confirmed showing a hemoglobin of 6.1 with reduced and CV anemia was confirmed with a hemoglobin level of 6.1 and reduced MCV at 72. 3 units packed red cells were ordered and are being transfused. Chemistry largely within normal limits as are coagulation studies. Again, the FOBT was negative. Patient is on Eliquis though and will require hospitalization for further transfusion and work-up of anemia Disposition: ADMITTED INPATIENT Condition: Serious Carlos Ceballos MD Oct 01, 2019 15:15
--- NOTE | 2019-10-01 15:51 | NUR ---
ED Nurse Note: RN ASSISTED DR DUEÑAS FOR RECTAL EXAM. NEGATIVE FOR BLEEDING.
[2019-10-01] MEDS ORDERED: VITAMIN D34000 UNIT PO (15:55)
[2019-10-01] MEDS ORDERED: ELIQUIS5 MG PO (15:55)
[2019-10-01] MEDS ORDERED: COLACE100 MG ORAL (15:55)
[2019-10-01] MEDS ORDERED: ACETAMINOPHEN500 M5 ORAL (16:00)
[2019-10-01] MEDS ORDERED: BREO ELLIPTA 11 EACH IH (16:00)
[2019-10-01] MEDS ORDERED: ISOSORBIDE MONO30 M1 PO (16:00)
[2019-10-01] MEDS ORDERED: BISACODYL5 MG ORAL (16:00)
[2019-10-01] MEDS ORDERED: COREG CR20 MG ORAL (16:00)
[2019-10-01 16:09] LABS: HEMATOCRIT 21.9 % (37.0-47.0); INR 1.1 (0.9-1.1); MEAN CORPUSCULAR VOLUME 72 FL (80-99); PLATELET COUNT 236 K/UL (150-450); RED BLOOD COUNT 3.05 M/UL (4.20-5.40); RED CELL DISTRIBUTION WIDTH 18.4 % (11.6-14.8); WHITE BLOOD COUNT 4.3 K/UL (4.8-10.8)
[2019-10-01 16:12] LABS: ANION GAP 11 mmol/L (5-15); BLOOD UREA NITROGEN 29 mg/dL (7-18); CALCIUM 9.3 MG/DL (8.5-10.1); CARBON DIOXIDE 22 MMOL/L (21-32); CHLORIDE 112 MMOL/L (98-107); CREATININE 1.2 MG/DL (0.55-1.30); POTASSIUM 4.4 MMOL/L (3.5-5.1); SODIUM 145 MMOL/L (136-145)
[2019-10-01 16:16] LABS: ALANINE AMINOTRANSFERASE 17 U/L (12-78); ALBUMIN 3.3 G/DL (3.4-5.0); ALBUMIN/GLOBULIN RATIO 0.8 (1.0-2.7); ALKALINE PHOSPHATASE 56 U/L (46-116); ASPARTATE AMINO TRANSFERASE 32 U/L (15-37); BILIRUBIN,TOTAL 0.5 MG/DL (0.2-1.0)
[2019-10-01 16:17] LABS: HEMOGLOBIN 6.1 G/DL (12.0-16.0)
[2019-10-01] MEDS ORDERED: MENTHOL-ZINC O113 GM TP (16:20)
[2019-10-01] MEDS ORDERED: LIDODERM700 M1 TOPIC (16:20)
[2019-10-01] MEDS ORDERED: NIFEDIPINE ER60 M2 ORAL (16:22)
[2019-10-01] MEDS ORDERED: ROBAXIN-500MG ORAL (16:22)
[2019-10-01] MEDS ORDERED: CARAFATE1 G1 ORAL (16:24)
[2019-10-01] MEDS ORDERED: WARFARIN SODIUM3 MG ORAL (16:27)
[2019-10-01] MEDS ORDERED: WARFARIN SODIUM2 MG ORAL (16:27)
[2019-10-01 17:40] VITALS: BP 138/77
--- NOTE | 2019-10-01 17:40 | NUR ---
ED Nurse Note: RN INSTRUCTED PT TO REPORT ANY S/SX FO TRANSFUSION REACTION SUCH ITCHINESS, SOB, BACKPAIN OR CP. PT VERBALIZED UNDERSTANDING OF TEACHINGS. BLOOD TRANSFUSION STARTED AT 1740 AT 80ML/HOUR FOR 1ST 15 MINS.
[2019-10-01 17:55] VITALS: BP 155/76
--- NOTE | 2019-10-01 17:55 | NUR ---
ED Nurse Note: NO REPORTED S/SX OF TRANSFUSION REACTION. IV SITE WITH NO REDNESS OR INFILTRATION. BLOOD TRANSFUSUION INCREASED TO 200ML/HOUR.
--- NOTE | 2019-10-01 19:24 | NUR ---
HAND-OFF: Report given to YAHAIRA CABRERA.
--- NOTE | 2019-10-01 19:35 | NUR ---
ED Nurse Note: Recieved pt on [facility] awake, alert and oriented x 4, pt here for admission for low blood levels, just completed blood transfusion of PRBC, tolerated well, no s/s of adverse reaction noted, pt b/p slightly high, MD is aware, pt denies pain, no sob or labored breathing, will resume care as ordered and closely monitor.
[2019-10-01 20:00] VITALS: BP 150/79
--- NOTE | 2019-10-01 21:00 | NUR ---
ED Nurse Note: Report given to floor nurse for pt admisison, pt is in bed awakae and alert, assisted pt several times with calling pt daughter in [email or web address], pt denies pain, IV site patent, belongings list completed and with pt, pt being taken to floor bed via gurney with er-tech, nad noted during pt transfer to floor.
--- NOTE | 2019-10-01 21:49 | NUR ---
NURSE NOTES: Received patient from ED via abrahamrsalo, awake, alert, oriented x 4, bedbound, fall precautions implemented, IV site is clean dry and intact, belongings list been verified, items are accounted for. Oriented to the room, call light is within reach, bed is lowered, locked and alarm is on, will continue to monitor for safety and comfort. Will contact MD for admit orders.
[2019-10-02] VITALS: BP 158/78
--- NOTE | 2019-10-02 00:25 | NUR ---
Patient has a high fall risk score of 70 related to Anand Fall risk score scale. Patients room is close to nursing station for safety, patient was oriented to the room and call blanco, with return demonstration. High fall risk status has been communicated to the care team so frequent rounding can be accomplished. Bed alarm is on .
[2019-10-02 04:00] VITALS: BP 148/78
--- NOTE | 2019-10-02 07:14 | NUR ---
HAND-OFF: Report given to Keri BECKETT.
--- NOTE | 2019-10-02 07:20 | NUR ---
NURSE NOTES: received patient A/A/Ox3, periods of forgetfulness. in bed eating breakfast independently. no acute resp distress noted. HOB elevated. receiving blood transfusion onto Left AC, patent and intact. able to verbalize needs. denies of pain/discomfort noted. bed is in the lowest position. siderails are up x3. call light is within reach. will cont to monitor.
[2019-10-02 08:00] VITALS: BP 157/90
--- NOTE | 2019-10-02 08:00 | NUR ---
NURSE NOTES: patient completed 2nd unit of PRBC. VSS and patient is verbally responsive. no labored breathing. will cont to monitor.
[2019-10-02 10:04] LABS: BASOPHILS % (AUTO) 0.4 % (0.0-2.0); EOSINOPHILS % (AUTO) 1.7 % (0.0-3.0); HEMATOCRIT 29.5 % (37.0-47.0); HEMOGLOBIN 9.6 G/DL (12.0-16.0); MEAN CORPUSCULAR VOLUME 75 FL (80-99); MONOCYTES % (AUTO) 8.2 % (1.0-10.0); NEUTROPHILS % (AUTO) 61.7 % (45.0-75.0); PLATELET COUNT 173 K/UL (150-450); RED BLOOD COUNT 3.93 M/UL (4.20-5.40); WHITE BLOOD COUNT 3.9 K/UL (4.8-10.8)
[2019-10-02 12:00] VITALS: BP 152/76
[2019-10-02] MEDS ORDERED: Methocarbamol 500mg tab ORAL SCH (13:00)
--- NOTE | 2019-10-02 13:39 | NUR ---
NURSE NOTES: called ambulance to arrange for transportation for discharge home. informed daughter, Gabriel for ETA @ [id number]. she stated she will call her sister, Yohana to meet her @ the house. will cont to monitor.
--- NOTE | 2019-10-02 15:34 | NUR ---
NURSE NOTES: AMBULANCE PRESENT. CALLED DAUGHTERNATHANAEL TO UPDATE FOR THE ETA. REMOVED IV HEPLOCK. REVIEWED/NOTED PERSONAL BELONGINGS S/T/D. PATIENT ABLE TO VERBALIZE NEEDS. VSS. DISCHARGE INSTRUCTIONS GIVEN.
[2019-10-02] MEDS ORDERED: Eliquis 5mg tablet ORAL SCH (18:00)
[2019-10-02] MEDS ORDERED: Latanoprost 0.005% Opth 2.5ml Soln BOTH EYES SCH (21:00)
[2019-10-02] MEDS ORDERED: Atorvastatin 20mg tab ORAL SCH (21:00)
[2019-10-03] MEDS ORDERED: Breo Ellipta 100/25mcg - 14 dose INH SCH (09:00)
[2019-10-03] MEDS ORDERED: Aspirin EC 81mg tab ORAL SCH (09:00)
[2019-10-03] MEDS ORDERED: Imdur 30mg tab ORAL SCH (09:00)
--- NOTE | 2019-10-04 20:15 | History and Physical Report ---
DATE OF ADMISSION: 10/02/2019 HISTORY OF PRESENT ILLNESS: This is an 84-year-old female, bed-bound with a history of previous CVA; chronic DVT, on Eliquis; and CHF. She was sent from her doctor's office for anemia. The patient apparently is residing at home and had a blood test done several days ago, which showed hemoglobin of 5.7. She was seen in the ER. She was found to have a significantly low hemoglobin 6.1. Remainder of laboratory testing was unremarkable. She was admitted for blood transfusion. PAST MEDICAL HISTORY: Chronic anemia, CHF, chronic lower extremity edema, CVA, and DVT. ALLERGIES: Benazepril, codeine, and penicillin. PAST SURGICAL HISTORY: None. HOME MEDICATIONS: Reviewed and reconciled in chart. Currently, is known that she is taking Eliquis. REVIEW OF SYSTEMS: Denies any headaches, hematemesis, melena, hematochezia, night sweats, or weight loss. PHYSICAL EXAMINATION: GENERAL: An elderly patient. HEENT: Unremarkable. CHEST: Clear breath sounds bilaterally. HEART: Normal heart sounds. ABDOMEN: Soft. EXTREMITIES: There is 1+ edema. VITAL SIGNS: Blood pressure 130/70, heart rate , and respiratory rate 18. LABORATORY TESTING: Discussed above. IMPRESSION: 1. Anemia. 2. Chronic anticoagulation usage. 3. History of CHF. 4. History of CVA. DISCUSSION: The patient has been transfused. Her hemoglobin now is over 9. I have discussed with her and family, the patient will be discharged home and will be following up as an outpatient with the primary care physician. A discussion will be undertaken between her and primary care physician, considering need for anticoagulation given her history of recurrent anemia. I will follow in the hospital as needed. Plan for discharge home today. Hunter Sousa M.D. DR: NIECY JOB#: [id number] CC:
--- NOTE | 2019-10-05 11:55 | Discharge Summary ---
Discharge Summary Discharge Summary _ DATE OF ADMISSION: 10/01/2019 DATE OF DISCHARGE: 10/02/2019 DISCHARGED BY: Dr. Sousa REASON FOR ADMISSION: 84 years old female, bedbound with past medical history of CVA, chronic DVT, on Eliquis, congestive heart failure, was sent for evaluation due to anemia. Blood test done several days ago showed hemoglobin of 5.7. Patient seen and evaluated in the emergency room and found to have hemoglobin of 6.1; remainder of laboratory testing was unremarkable . Patient subsequently admitted for blood transfusion. HOSPITAL COURSE: Patient admitted to medical surgical floor. Patient was transfused with 3 units of packed red blood cells . prior to discharge hemoglobin 9.6 , hematocrit 29.5. Home medication continued. Patient remained hemodynamically stable. Pulse oximetry was stable on room air. Patient's condition was discussed with the patient and her family. Patient to follow-up with a primary care physician for further work-up of anemia and evaluation for chronic anticoagulation use. Due to rapid and unexpected improvement in patient condition , patient was discharged in 1 day. FINAL DIAGNOSES: Anemia Chronic anticoagulation use History of CHF History of CVA DISCHARGE MEDICATIONS: See Medication Reconciliation list. DISCHARGE INSTRUCTIONS: Patient was discharged home. Follow-up with a primary care provider in 1 week. I have been assigned to dictate discharge summary for this account. I was not involved in the patient's management. Sugey Flores NP Oct 05, 2019 11:55
--- NOTE | 2019-10-06 11:39 | NUR ---
*-* INSURANCE *--* ALL CLINICALS AND REVIEWS HAVE BEEN FAXED TO: POLLY ZENDEJAS:DORCAS AUTH# [id number] P: [phone] F: [phone]
== END 2019-10-02 15:40 | disposition home or self-care (01) | DRG 812 ==
LOC: EDBD 14:55 → EMR 15:50 → 4E 17:30 → EDBEDREQ 20:30
DX: D64.9 Anemia, unspecified (principal); I82.509 Chronic embolism and thrombosis of unspecified deep veins of unspecified lower extremity; Z86.73 Personal history of transient ischemic attack (TIA), and cerebral infarction without residual deficits; Z74.01 Bed confinement status; Z79.01 Long term (current) use of anticoagulants
CPT/HCPCS: 36415; 80053; 85007; 85025; 85610; 85730; 86850; 86900; 86901; 86920; 99291

== ENCOUNTER 2020-06-04 10:54 | Emergency (ER) | payer MEDICARE, MEDICAID ==
[~2020-06-04] VITALS: Ht 167.6 cm; Wt 90.7 kg
[~2020-06-04 10:54] MED LIST changes: +ACETAMINOPHEN500 M5 ORAL; +BISACODYL5 MG ORAL; +BREO ELLIPTA 11 EACH IH; +CARAFATE1 G1 ORAL; +COLACE100 MG ORAL; +COREG CR20 MG ORAL; +ELIQUIS5 MG PO; +ISOSORBIDE MONO30 M1 PO; +LIDODERM700 M1 TOPIC; +MENTHOL-ZINC O113 GM TP; +NIFEDIPINE ER60 M2 ORAL; +ROBAXIN-500MG ORAL; +VITAMIN D34000 UNIT PO; +WARFARIN SODIUM2 MG ORAL; +WARFARIN SODIUM3 MG ORAL
[2020-06-04 11:13] VITALS: BP 124/77
[2020-06-04] MEDS ORDERED: Acetaminophen 500mg (ES) tab ORAL ONE (11:30)
--- NOTE | 2020-06-04 11:38 | Emergency Room Report ---
History of Present Illness General Chief Complaint: Pain Source: Patient, Medical Record, EMS Present Illness HPI 84-year-old female presents the ED for evaluation. Complaining of knee pain and left hip pain. States is been going getting worse over the last few days. Denies any fall or injury. Brought in by EMS. States she is not ambulatory normally uses a wheelchair. Pain is throbbing, 7 out of 10, nonradiating. No other aggravating relieving factors. Denies any other associated symptoms Allergies: Coded Allergies: PENICILLINS (Unverified Allergy, Mild, SICK, 03/04/17) COPIED FROM UNCODED SECTION BENAZEPRIL (Unverified Allergy, Unknown, 02/21/17) CODEINE (Unverified Allergy, Unknown, 02/21/17) TRAMADOL (Verified Allergy, Unknown, 10/01/19) COVID-19 Screening Contact w/high risk pt: No Experienced COVID-19 symptoms?: No COVID-19 Testing performed RISK CONTROL FIELD REPRESENTATIVE: No Patient History Past Medical History: DM, HTN Past Surgical History: jesus Pertinent Family History: none Social History: Denies: smoking, alcohol use, drug use Now: No Immunizations: UTD Reviewed Nursing Documentation: PMH: Agreed; PSxH: Agreed Nursing Documentation-PMH Past Medical History: No History, Except For Hx Hypertension: Yes - Pulmonary HTN, Iron deficiency Anemia Hx Asthma: Yes - adhesive capsulitis of right shoulder Hx Diabetes: Yes - diabetic neuropathy Hx Cancer: No Hx Gastrointestinal Problems: Yes - cholecystectomy , hystrectomy, colitis, esophagitis Hx Neurological Problems: Yes - dementia, spinal stenosis Hx Vertigo: Yes Review of Systems All Other Systems: negative except mentioned in HPI Physical Exam Vital Signs Date Time Temp Pulse Resp B/P (MAP) Pulse Ox O2 Delivery O2 Flow Rate FiO2 06/04/20 10:54 98.8 80 16 136/82 (100) 99 Room Air Sp02 EP Interpretation: reviewed, normal General Appearance: no apparent distress, alert, GCS 15, non-toxic Head: normocephalic, atraumatic Eyes: bilateral eye normal inspection, bilateral eye PERRL ENT: hearing grossly normal, normal pharynx, no angioedema, normal voice Neck: full range of motion, supple/symm/no masses Respiratory: chest non-tender, lungs clear, normal breath sounds, speaking full sentences Cardiovascular #1: regular rate, rhythm, no edema Cardiovascular #2: 2+ carotid (R), 2+ carotid (L), 2+ radial (R), 2+ radial (L), 2+ dorsalis pedis (R), 2+ dorsalis pedis (L) Gastrointestinal: normal bowel sounds, non tender, soft, non-distended, no guarding, no rebound Rectal: deferred Genitourinary: normal inspection, no CVA tenderness Musculoskeletal: back normal, normal range of motion, gait/station normal, tender - R knee, R hip Neurologic: alert, motor strength/tone normal, oriented x3, sensory intact, responsive, speech normal Psychiatric: judgement/insight normal, memory normal, mood/affect normal, no suicidal/homicidal ideation Reflexes: 3+ bicep (R), 3+ bicep (L), 3+ tricep (R), 3+ tricep (L), 3+ knee (R), 3+ knee (L) Skin: no rash Lymphatic: no adenopathy Medical Decision Making Diagnostic Impression: Primary Impression: Hip pain Additional Impression: Knee pain Qualified Codes: M25.561 - Pain in right knee ER Course Hospital Course 84-year-old female presents with right hip and right knee pain. From home. No reported fall Differential diagnoses include: Fracture, dislocation, sprain, contusion Clinical course Patient placed on stretcher. After initial history and physical, I ordered pain medications and Xrays of R knee/hip X-ray showed DJD but no acute process or fracture or dislocation. I discussed findings with patient and with daughter on phone. I believe patient can be discharged to home with close outpatient follow-up. I will provide referrals. Will arrange transport to take patient home Diagnosis - hip pain, knee pain Stable and discharged to home with prescription for Tylenol. weight bear as t olerated. Followup with PMD/ortho. Return to ED if symptoms recur or worsen Other X-Ray Diagnostic Results Other X-Ray Diagnostic Results #1: X-Ray ordered: Right hip # of Views/Limited Vs Complete: 3 View Indication: Pain EP Interpretation: Yes Interpretation: no dislocation, no soft tissue swelling, no fractures Impression: No acute disease Electronically Signed by: Electronically signed by Bin Pollock MD Other X-Ray Diagnostic Results #2: X-Ray ordered: Right knee # of Views/Limited Vs Complete: 3 View Indication: Pain EP Interpretation: Yes Interpretation: no dislocation, no soft tissue swelling, no fractures Impression: No acute disease Electronically Signed by: Electronically signed by Bin Pollock MD Last Vital Signs Date Time Temp Pulse Resp B/P (MAP) Pulse Ox O2 Delivery O2 Flow Rate FiO2 06/04/20 11:13 98.3 64 13 124/77 96 Room Air Status: improved Disposition: HOME, SELF-CARE Condition: Stable Scripts Acetaminophen* (TYLENOL EXTRA STRENGTH*) 500 Mg Tablet 500 MG ORAL Q8H PRN for Prn Headache/Temp > 101, #30 TAB 0 Refills Prov: Bin Pollock MD 06/04/20 Bin Pollock MD Jun 04, 2020 11:38
--- NOTE | 2020-06-04 12:07 | Diagnostic Imaging Report ---
EXAM: XR Right Hip With Pelvis When Performed, 2 or 3 Views CLINICAL HISTORY: PAIN TECHNIQUE: Two or three views of the right hip with pelvis when performed. COMPARISON: None FINDINGS: Bones/joints: No displaced fracture or dislocation identified. Osteopenia. Degenerative changes of the hips. Soft tissues: Normal. Other: Vascular calcifications. Large amount of stool in the rectum. IMPRESSION: No displaced fracture or dislocation identified. If there is persistent concern for acute injury, consider further evaluation with CT or MRI.
--- NOTE | 2020-06-04 12:08 | Diagnostic Imaging Report ---
EXAM: XR Right Knee, 3 Views CLINICAL HISTORY: PAIN TECHNIQUE: Three views of the right knee. COMPARISON: None FINDINGS: Bones/joints: No displaced fracture or dislocation identified. Osteopenia. Mild degenerative changes of the right knee. Chondrocalcinosis in the medial and lateral compartments. Old fracture deformity of the proximal right fibula. No significant knee joint effusion. Soft tissues: Generalized soft tissue swelling/edema. Vasculature: Extensive vascular calcifications. IMPRESSION: No displaced fracture or dislocation identified.
--- NOTE | 2020-06-04 12:10 | NUR ---
ED Nurse Note: pt on bed, awake and alert x4, denies any pain as of now.
--- NOTE | 2020-06-04 12:23 | NUR ---
ED Nurse Note: Message left to daughter.
[2020-06-04] MEDS ORDERED: TYLENOL EXTRA500 MG ORAL (13:18)
[2020-06-04 13:58] VITALS: BP 146/52
--- NOTE | 2020-06-04 14:01 | NUR ---
ED Nurse Note: Ambulance team pickup patient and taken home, daughter is awaiting for her arrival.
== END 2020-06-04 13:58 | disposition home or self-care (01) ==
LOC: EDBD 10:54 → EMR 12:29
DX: M25.551 Pain in right hip (principal); M25.561 Pain in right knee; E11.40 Type 2 diabetes mellitus with diabetic neuropathy, unspecified; Z90.49 Acquired absence of other specified parts of digestive tract; Z90.710 Acquired absence of both cervix and uterus; F03.90 Unspecified dementia, unspecified severity, without behavioral disturbance, psychotic disturbance, mood disturbance, and anxiety; Z88.0 Allergy status to penicillin; Z88.6 Allergy status to analgesic agent; I10 Essential (primary) hypertension
CPT/HCPCS: 99283

== ENCOUNTER 2020-06-12 12:49 | Observation (INO) | payer MEDICARE, MEDICAID ==
[~2020-06-12] VITALS: Ht 167.6 cm; Wt 84.0 kg
--- NOTE | 2020-06-12 12:47 | NUR ---
ED Nurse Note: Pt arrived with RA 829 due to lower back pain radiating to right leg x 1 week
[~2020-06-12 12:49] MED LIST changes: +TYLENOL EXTRA500 MG ORAL
[2020-06-12 12:50] VITALS: BP 160/69
--- NOTE | 2020-06-12 13:57 | NUR ---
ED Nurse Note: Pt taken to CT on erika
--- NOTE | 2020-06-12 14:18 | NUR ---
ED Nurse Note: Pt returned from CT
[2020-06-12 14:30] VITALS: BP 159/83
--- NOTE | 2020-06-12 14:30 | NUR ---
ED Nurse Note: urine specimen obtained sent to lab
--- NOTE | 2020-06-12 14:54 | Emergency Room Report ---
History of Present Illness General Chief Complaint: Back Pain-No Injury Source: Patient (Millie Burgos) Present Illness HPI 84 YO female presents to the ED c/o 05/27 in severity Right low back and hip pain with radiation down the right leg x 1 week. Pt. denies hx of sciatica. She reports she is not ambulatory on her own and is able to do some walking with a walker and nurse assistance. Pt. is currently residing in a SNF. She denies trauma or fall. She reports some shooting electrical pains. She denies paresthesias. She denies abdominal pain or tenderness. Hx of DM, HTN, CHF, CVA, DVT, and shoulder dislocations. She denies night sweats, personal or familial hx of cancer or recent spinal procedures. Pt. reports some GI issues x 3 months. Pt. reports having loose stools currently. Pt. denies fevers or chills. She denies nausea or vomiting. She denies hematuria, dysuria, or frequency. (Millie Burgos) Allergies: Coded Allergies: PENICILLINS (Unverified Allergy, Mild, SICK, 03/04/17) COPIED FROM UNCODED SECTION BENAZEPRIL (Unverified Allergy, Unknown, 02/21/17) CODEINE (Unverified Allergy, Unknown, 02/21/17) TRAMADOL (Verified Allergy, Unknown, 10/01/19) COVID-19 Screening Contact w/high risk pt: No Experienced COVID-19 symptoms?: No COVID-19 Testing performed MOTION PICTURE OPERATOR: No (Millie Burgos) Patient History Past Medical History: see triage record, DM, HTN, CHF, CVA/TIA Past Surgical History: none Pertinent Family History: none Now: No Reviewed Nursing Documentation: PMH: Agreed; PSxH: Agreed (Millie Burgos) Nursing Documentation-PMH Hx Hypertension: Yes Hx Asthma: Yes - adhesive capsulitis of right shoulder Hx Diabetes: Yes Hx Cancer: No Hx Gastrointestinal Problems: Yes - cholecystectomy , hystrectomy, colitis, esophagitis Hx Neurological Problems: Yes - dementia, spinal stenosis Hx Vertigo: Yes (Millie Burgos) Review of Systems All Other Systems: negative except mentioned in HPI (Millie Burgos) Physical Exam Vital Signs Date Time Temp Pulse Resp B/P (MAP) Pulse Ox O2 Delivery O2 Flow Rate FiO2 06/12/20 12:46 98.2 76 19 160/69 (99) 98 Room Air Sp02 EP Interpretation: reviewed, normal General Appearance: no apparent distress, alert, GCS 15, non-toxic Head: normocephalic, atraumatic Eyes: bilateral eye normal inspection, bilateral eye PERRL ENT: hearing grossly normal, normal voice Neck: full range of motion Respiratory: chest non-tender, lungs clear, normal breath sounds, speaking full sentences Cardiovascular #1: regular rate, rhythm, no edema Gastrointestinal: normal bowel sounds, non tender, soft, non-distended, no guarding Rectal: deferred Genitourinary: normal inspection Musculoskeletal: no calf tenderness, tender - Right hip and midline L-spine. , other - muscular atrophy to bilateral LE's. Neurologic: alert, motor strength/tone normal, oriented x3, sensory intact, responsive, speech normal Psychiatric: judgement/insight normal Skin: no rash, normal color (Millie Burgos) Medical Decision Making PA Attestation Dr. Bey is my supervising Physician whom patient management has been discussed with. (Millie Burgos) PA Attestation I participated in the care of this patient along with BEN Cason. Briefly, 84-year-old female with multiple medical conditions mostly bedbound but come ambulatory with a wheelchair initially presented for evaluation of back and hip pain. CTs did not show evidence of bony injury but did show fecal impaction. A subsequent abdominal x-ray shows large stool burden throughout the whole colon but no signs of obvious obstruction. Labs show slight increase in creatinine as compared to patient baseline. Given the increased stool burden believe she would likely requires GI evaluation and bowel cleanout. Discussed with Dr. Fiore and the patient has been accepted to [facility]. She is stable for transfer. 2100: Patient is exceeded to our transfer window from the accepting facility and will be admitted at our hospital instead. Dr. Mac accepting physician per healthcare plan. (Carlos Ceballos MD) Diagnostic Impression: Primary Impression: Fecal impaction Additional Impressions: Hip pain Back pain Qualified Codes: M54.41 - Lumbago with sciatica, right side; G89.29 - Other chronic pain DILLAN (acute kidney injury) ER Course 84 YO female presents to the ED c/o 05/27 in severity Right low back and hip pain with radiation down the right leg x 1 week. Pt. denies hx of sciatica. She reports she is not ambulatory on her own and is able to do some walking with a walker and nurse assistance. Pt. is currently residing in a SNF. She denies trauma or fall. She reports some shooting electrical pains. She denies paresthesias. She denies abdominal pain or tenderness. Hx of DM, HTN, CHF, CVA, DVT, and shoulder dislocations. She denies night sweats, personal or familial hx of cancer or recent spinal procedures. Pt. reports some GI issues x 3 months. Pt. reports having loose stools currently. Pt. denies fevers or chills. She denies nausea or vomiting. She denies hematuria, dysuria, or frequency. Ddx considered: epidural abscess, fracture, sprain/strain, meningitis, spinal chord injury, sciatica, cauda equina, Pyelonephritis, renal calculi just to name a few. Vital signs reviewed and are WNL during ED visit. Pt. is afebrile with no signs of infection No saddle anesthesia noted, Pt. denies incontinence Neurovascular is intact ROM is limited due to pain. ORDERS: -CBC: mild anemia -CMP: cr. 1.5, and BUN: 25 glucose 220 -Lipase: Unremarkable -UA: Most indicative of contamination: presence of equal amounts of bacteria and squamous cells, no elevation in inflammatory markers, nitrite negative. INTERVENTIONS: - Tylenol PO - Robaxin 500mg PO - 1 Liter NS IV @ 200cc/Hr DISPOSITION: at this time pt. will be admitted to Dr. Fiore at [facility], for Fecal impaction and Acute DILLAN . Dr. Fiore agreed to admit the pt. and to continue pt. care management. Labs Test 06/12/20 14:28 06/12/20 17:00 Urine Color Pale yellow Urine Appearance Slightly cloudy Urine pH 5 (4.5-8.0) Urine Specific [place] 1.010 (1.005-1.035) Urine Protein 3+ (NEGATIVE) Urine Glucose (UA) Negative (NEGATIVE) Urine Ketones Negative (NEGATIVE) Urine Blood 1+ (NEGATIVE) Urine Nitrite Negative (NEGATIVE) Urine Bilirubin Negative (NEGATIVE) Urine Urobilinogen Normal MG/DL (0.0-1.0) Urine Leukocyte Esterase Negative (NEGATIVE) Urine RBC 2-4 /HPF (0 - 2) Urine WBC 0 /HPF (0 - 2) Urine Squamous Epithelial Cells Occasional /LPF Urine Bacteria Many /HPF (NONE) White Blood Count 5.0 K/UL (4.8-10.8) Red Blood Count 3.75 M/UL (4.20-5.40) Hemoglobin 11.9 G/DL (12.0-16.0) Hematocrit 36.1 % (37.0-47.0) Mean Corpuscular Volume 96 FL (80-99) Mean Corpuscular Hemoglobin 31.8 PG (27.0-31.0) Mean Corpuscular Hemoglobin Concent 33.0 G/DL (32.0-36.0) Red Cell Distribution Width 14.3 % (11.6-14.8) Platelet Count 145 K/UL (150-450) Mean Platelet Volume 8.2 FL (6.5-10.1) Neutrophils (%) (Auto) 77.5 % (45.0-75.0) Lymphocytes (%) (Auto) 19.4 % (20.0-45.0) Monocytes (%) (Auto) 2.4 % (1.0-10.0) Eosinophils (%) (Auto) 0.0 % (0.0-3.0) Basophils (%) (Auto) 0.7 % (0.0-2.0) Sodium Level 142 MMOL/L (136-145) Potassium Level 3.6 MMOL/L (3.5-5.1) Chloride Level 107 MMOL/L (98-107) Carbon Dioxide Level 23 MMOL/L (21-32) Blood Urea Nitrogen 25 mg/dL (7-18) Creatinine 1.5 MG/DL (0.55-1.30) Estimat Glomerular Filtration Rate 40.1 mL/min (>60) Glucose Level 224 MG/DL (74-106) Calcium Level 9.3 MG/DL (8.5-10.1) Total Bilirubin 1.0 MG/DL (0.2-1.0) Aspartate Amino Transf (AST/SGOT) 19 U/L (15-37) Alanine Aminotransferase (ALT/SGPT) 14 U/L (12-78) Alkaline Phosphatase 84 U/L (46-116) Total Protein 7.1 G/DL (6.4-8.2) Albumin 3.4 G/DL (3.4-5.0) Globulin 3.7 g/dL Albumin/Globulin Ratio 0.9 (1.0-2.7) Lipase 169 U/L (73-393) (Millie Burgos) Other X-Ray Diagnostic Results Other X-Ray Diagnostic Results : X-Ray ordered: Abdominal # of Views/Limited Vs Complete: 1 View Indication: Pain EP Interpretation: Yes PA Xray: Interpretation reviewed, by supervising MD, and agrees with findings. Interpretation: nonspecific bowel gas, no sbo, other - significant stool burden Impression: No acute disease Electronically Signed by: Millie Burgos PA-C (Millie Burgos) CT/MRI/US Diagnostic Results CT/MRI/US Diagnostic Results #1: Imaging Test Ordered: CT L-spine No Contrast Impression " Impression: No acute bony trauma. Degenerative changes, as described above. Possible rectal fecal impaction. Incidental finding of inferior vena cava filter ." --Per official radiology report- Please see report for specific details. CT/MRI/US Diagnostic Results #2: Imaging Test Ordered: CT right hip no contrast Impression " mpression: No acute bony trauma Possible contusion of the right hip region subcutaneous fat Distended rectum with feces, rectal fecal impaction possible Evidence of prior hysterectomy Degenerative spondylosis changes ." --Per official radiology report- Please see report for specific details. (Millie Burgos) Last Vital Signs Date Time Temp Pulse Resp B/P (MAP) Pulse Ox O2 Delivery O2 Flow Rate FiO2 06/12/20 14:16 98.2 06/12/20 12:50 88 19 160/69 98 Room Air Status: improved (Millie Burgos) Disposition: ADMITTED INPATIENT Condition: Stable Milile Burgos Jun 12, 2020 14:54 Carlos Ceballos MD Jun 12, 2020 18:49
[2020-06-12] MEDS ORDERED: Methocarbamol 500mg tab ORAL ONE (15:30)
--- NOTE | 2020-06-12 15:32 | Diagnostic Imaging Report ---
Indication: Right hip pain for one week Technique: Noncontrast spiral acquisitions obtained through the right hip and pelvis Multiplanar reconstructions were generated. Total dose length product 964 mGycm. CTDIvol(s) 27 mGy. Radiation dose was minimized using automated exposure control Comparison: none Findings: No acute fractures. No dislocations. The joint spaces are preserved. There are degenerative changes of the lumbosacral junction. Increased soft tissue attenuation in the right hip region subcutaneous fat may indicate a soft tissue contusion. The rectum is distended with feces, measuring 9 cm transverse. The uterus is not visualized, presumably removed. The remaining pelvic viscera are unremarkable. Impression: No acute bony trauma Possible contusion of the right hip region subcutaneous fat Distended rectum with feces, rectal fecal impaction possible Evidence of prior hysterectomy Degenerative spondylosis changes The CT scanner at [facility] is accredited by the [employer] and the scans are performed using protocols designed to limit radiation exposure to as low as reasonably achievable to attain images of sufficient resolution adequate for diagnostic evaluation.
[2020-06-12 15:37] LABS: APPEARANCE,URINE SLIGHTLY CLOUDY; BILIRUBIN, URINE NEGATIVE (NEGATIVE); COLOR,URINE PALE YELLOW; GLUCOSE, URINE (UA) NEGATIVE (NEGATIVE); KETONES,URINE NEGATIVE (NEGATIVE); LEUKOCYTE ESTERASE ,URINE NEGATIVE (NEGATIVE); NITRITE,URINE NEGATIVE (NEGATIVE); PH,URINE 5 (4.5-8.0); PROTEIN,URINE 3+ (NEGATIVE); UROBILINOGEN,URINE NORMAL MG/DL (0.0-1.0)
--- NOTE | 2020-06-12 15:39 | Diagnostic Imaging Report ---
Indications: Low back pain in right hip pain for one week Technique: Spiral acquisitions obtained through the lumbar spine. Multiplanar reconstructions were generated. No IV contrast utilized. Total dose length product 964 mGycm. CTDIvol(s) 27 mGy. Dose reduction achieved using automated exposure control Comparison: none Findings: There is lumbar levoscoliotic deformity. There is anterior offset of L4 on L5. There is slight posterior offset of L3 on L4. The vertebral body heights are preserved. No acute fractures. No dislocations. There is [id number] apposition of the L2, L3, L4, and L5 spinous processes with resultant degenerative changes. At T12-L1, the disc space is preserved. The neural foramina are preserved. No significant disc bulge or protrusion or spinal stenosis. There is bilateral facet arthrosis. At L1-L2, there is moderate to severe stenosis of the right neural foramen. No significant disc bulge or protrusion, or spinal stenosis. There is bilateral facet arthrosis. There is considerable degenerative disc narrowing at this level. There are also flowing osteophytes and some ankylosis of the right side of the disc. At L2-3, no significant disc bulge or protrusion, spinal stenosis, or neural foraminal stenosis. There is degenerative disc space narrowing. At L3-4, there is moderate narrowing of the left neural foramen and mild narrowing of the right neural foramen. The disc space is preserved and there is vacuum formation. No significant disc bulge or protrusion or spinal canal stenosis. At L4-5, combination of short pedicles, alignment abnormality, and facet hypertrophy results in moderate to severe narrowing of the spinal canal, both in the AP and transverse planes. The neural foramina are preserved. At L5-S1, there is questionable mild bilateral neural foraminal narrowing. No significant disc bulge or protrusion or spinal stenosis. There is an inferior vena cava filter. There is evidence of rectal fecal impaction. Impression: No acute bony trauma Degenerative changes, as described above Possible rectal fecal impaction Incidental finding of inferior vena cava filter The CT scanner at [facility] is accredited by the [employer] and the scans are performed using protocols designed to limit radiation exposure to as low as reasonably achievable to attain images of sufficient resolution adequate for diagnostic evaluation.
--- NOTE | 2020-06-12 15:44 | NUR ---
ED Nurse Note: humberto Chavez [phone]
[2020-06-12 16:30] VITALS: BP 155/72
[2020-06-12 17:36] LABS: BASOPHILS % (AUTO) 0.7 % (0.0-2.0); HEMATOCRIT 36.1 % (37.0-47.0); HEMOGLOBIN 11.9 G/DL (12.0-16.0); LYMPHOCYTES % (AUTO) 19.4 % (20.0-45.0); MEAN CORPUSCULAR VOLUME 96 FL (80-99); MONOCYTES % (AUTO) 2.4 % (1.0-10.0); NEUTROPHILS % (AUTO) 77.5 % (45.0-75.0); PLATELET COUNT 145 K/UL (150-450); RED BLOOD COUNT 3.75 M/UL (4.20-5.40); RED CELL DISTRIBUTION WIDTH 14.3 % (11.6-14.8)
--- NOTE | 2020-06-12 17:39 | NUR ---
ED Nurse Note: XRAY TAKEN
[2020-06-12 17:42] LABS: ALANINE AMINOTRANSFERASE 14 U/L (12-78); ALBUMIN 3.4 G/DL (3.4-5.0); ALBUMIN/GLOBULIN RATIO 0.9 (1.0-2.7); ALKALINE PHOSPHATASE 84 U/L (46-116); ASPARTATE AMINO TRANSFERASE 19 U/L (15-37); BLOOD UREA NITROGEN 25 mg/dL (7-18); CALCIUM 9.3 MG/DL (8.5-10.1); CARBON DIOXIDE 23 MMOL/L (21-32); CHLORIDE 107 MMOL/L (98-107); CREATININE 1.5 MG/DL (0.55-1.30); POTASSIUM 3.6 MMOL/L (3.5-5.1); SODIUM 142 MMOL/L (136-145)
--- NOTE | 2020-06-12 18:38 | NUR ---
ED Nurse Note: Pt signed consent to be transfered, attempted to call family member, no answer, unable to leave message.
--- NOTE | 2020-06-12 18:39 | NUR ---
ED Nurse Note: Pt in bed resting, no complaints at this time. pt reports decreased pain.
--- NOTE | 2020-06-12 19:00 | NUR ---
HAND-OFF: Report given to RICK Barnett.
--- NOTE | 2020-06-12 19:05 | NUR ---
ED Nurse Note: Report received from RICK Hernández. She is resting in bed, NAD noted. Safety measures met. She is talkative with RN. Will cont. to monitor.
--- NOTE | 2020-06-12 19:50 | NUR ---
ED Nurse Note: Patient had a small bowel movement. She was cleaned and repositioned. Skin is clean/dry/intact.
--- NOTE | 2020-06-12 20:30 | NUR ---
ED Nurse Note: Report given to RICK Colón.
--- NOTE | 2020-06-12 21:10 | NUR ---
ED Nurse Note: Patient is stable for transfer to MS unit at this time as ordered. She is aaox4, breathing is normal, NAD noted. Patient taken to unit via gurney by RN. All pt belongings sent with patient. Pt IV is patent and intact. Pt transferred to [facility] bed w/o complication.
--- NOTE | 2020-06-12 21:51 | NUR ---
NURSE NOTES: Received report from Ericka,ED. Pt arrived @ 0 via gurney. AAO x 4, on room air. Vitals 162/94, 119, 94%, 97.7F, 20RR. IV site intact and patent. Skin assessment done and found sacral wound. Taken pic and uploaded. Pt has R side weakness and jesusita. foot drop. All belongings reviewed and pt has home meds but doesn't remember the name and dose. Says " I am from home. I am taking meds for BP, stomach, and multivitamin but I didn't bring them. I don't remember the name." Pt c/o abd pain 11/25. Call light instruction given. Orientation to the room given. Called Dr. Mac for admission order. Bed locked, lowest position, alarm on, side rails up, call light within reach. Will continue to monitor.
[2020-06-12] MEDS ORDERED: Miralax 17gm pkt ORAL PRN (22:45)
[2020-06-12] MEDS ORDERED: Albuterol/Ipratropium 3ml neb HHN PRN (22:45)
[2020-06-12 23:54] VITALS: BP 150/98
[2020-06-13] MEDS ORDERED: Cefepime 1gm in D5W 55ml IVPB SCH ×2
[2020-06-13] MEDS ORDERED: Vancomycin 1 GM in D5W 275 ML IVPB SCH (02:00)
[2020-06-13 04:00] VITALS: BP 170/94
--- NOTE | 2020-06-13 04:49 | NUR ---
NURSE NOTES: BP 170/[address] Mac for order. Awaiting for call back. Addendum: 06/13/20 at 0731 by TOREY KELLEY RN RN NURSE NOTES: Received order Clonidine 0.1mg po q6h prn sbp >160
[2020-06-13] MEDS: Sucralfate 1gm tab ORAL SCH ×4 (05:36→20:05)
--- NOTE | 2020-06-13 07:37 | NUR ---
NURSE HAND-OFF: Important Events on Shift:HTN, admission Patient Status: stable Diet: reg Pending Orders: N Pending Results/Labs:AM labs Pending MD notification:N Latest Vital Signs: Temperature 98.0 , Pulse 72 , B/P 170 /94 , Respiratory Rate 20 , O2 SAT 95 , Room Air, O2 Flow Rate . Vital Sign Comment: [] Latest Anand Fall Score: 40 Fall Risk: Medium Risk Safety Measures: Call light Within Reach, Bed Alarm Zone 1, Side Rails Side Rails x2, Bed position Low and Locked. Fall Precautions: Yellow Socks Yellow Gown Door Sign Patient Fall Education Report given to [Hannah].
[2020-06-13 08:00] VITALS: BP 143/73
--- NOTE | 2020-06-13 08:20 | NUR ---
NURSE NOTES: patient awake and alert to name,respirations unlabored.IV fluids infusing as ordered.Patient has pure wick in place with clear yellow urine noted.breakfas t at bedside will assist patient.Bed alarm is on,call light within reacvh.
[2020-06-13] MEDS ORDERED: Cefepime HCl 2 GM in D5W 110 ML IV SCH (09:00)
[2020-06-13] MEDS ORDERED: Heparin 5000 units/ml inj SUBQ SCH (09:00)
[2020-06-13 09:29] LABS: BASOPHILS % (AUTO) 0.3 % (0.0-2.0); EOSINOPHILS % (AUTO) 0.2 % (0.0-3.0); HEMATOCRIT 35.2 % (37.0-47.0); HEMOGLOBIN 11.3 G/DL (12.0-16.0); LYMPHOCYTES % (AUTO) 30.8 % (20.0-45.0); MEAN CORPUSCULAR VOLUME 94 FL (80-99); MONOCYTES % (AUTO) 9.4 % (1.0-10.0); NEUTROPHILS % (AUTO) 59.2 % (45.0-75.0); PLATELET COUNT 163 K/UL (150-450); RED BLOOD COUNT 3.73 M/UL (4.20-5.40); RED CELL DISTRIBUTION WIDTH 13.8 % (11.6-14.8); WHITE BLOOD COUNT 6.7 K/UL (4.8-10.8)
[2020-06-13 09:51] LABS: ALBUMIN 3.1 G/DL (3.4-5.0); ALBUMIN/GLOBULIN RATIO 0.9 (1.0-2.7); BILIRUBIN,TOTAL 0.8 MG/DL (0.2-1.0); CREATININE 1.3 MG/DL (0.55-1.30); POTASSIUM 3.7 MMOL/L (3.5-5.1)
[2020-06-13] MEDS: Eliquis 5mg tablet ORAL SCH ×2 (10:44→18:24)
--- NOTE | 2020-06-13 11:15 | NUR ---
NURSE NOTES: Patient had a large soft formed brown bowel movement,skin care given given,patient state she is feeling better.
--- NOTE | 2020-06-13 11:15 | NUR ---
NURSE NOTES: Patient received tap water enema and dulcolax suppository as ordered.
[2020-06-13 12:00] VITALS: BP 149/75
--- NOTE | 2020-06-13 12:20 | Consultation ---
History of Present Illness General Date patient seen: Jun 13, 2020 Chief Complaint: Back Pain-No Injury Present Illness HPI 84 y/o F with hx of Dm2, HTN, CHF, asthma, Dementia, spinal stenosis, sp cholecystectomy, sp hysterectomy, esophagitis, colitis, adhesive capsulitis of right shoulder, CVA/TIA, DVT, SNF resident presented to ED on 06/12/20 with 1 week R low back and hip pain with radiation to R leg (10/10 severity; shooting electrical pain). +loose stools Denied trauma or fall, paresthesias, abd pain, hematuria, dysuria, frequency Allergies: Coded Allergies: PENICILLINS (Unverified Allergy, Mild, SICK, 03/04/17) COPIED FROM UNCODED SECTION BENAZEPRIL (Unverified Allergy, Unknown, 02/21/17) CODEINE (Unverified Allergy, Unknown, 02/21/17) TRAMADOL (Verified Allergy, Unknown, 10/01/19) Medication History Scheduled Allopurinol* (Allopurinol*), 300 MG ORAL DAILY Amlodipine Besylate* (Amlodipine Besylate*), 10 MG PO DAILY, (Reported) Apixaban (Eliquis*), 5 MG PO BID, (Reported) Atorvastatin Calcium* (Atorvastatin Calcium*), 40 MG ORAL BEDTIME, (Reported) Carvedilol (Coreg Cr), 80 MG ORAL DAILY, (Reported) Cholecalciferol (Vitamin D3) (Vitamin D3), 4,000 UNIT PO DAILY, (Reported) Docusate Sodium* (Colace*), 100 MG ORAL BEDTIME, (Reported) Fluticasone/Vilanterol (Breo Ellipta 100-25 Mcg INH), 1 EACH IH DAILY, (Reported) Insulin Glargine (Lantus), 0 SUBQ BEDTIME, (Reported) Isosorbide Mononitrate (Isosorbide Mononitrate Er), 30 MG PO DAILY, (Reported) Latanoprost* (Xalatan*), 1 DROP BOTH EYES BEDTIME, (Reported) Lidocaine Patch* (Lidoderm Patch*), 1 PATCH TOPIC DAILY, (Reported) Menthol/Zinc Oxide (Menthol-Zinc Oxide 0.45%-20%), 113 GM TP BID, (Reported) Methocarbamol* (Robaxin-500*), 375 MG ORAL TID, (Reported) Nifedipine* (Nifedipine Er*), 90 MG ORAL DAILY, (Reported) Pantoprazole* (Pantoprazole*), 40 MG PO DAILY, (Reported) Sucralfate* (Carafate*), 1 GM ORAL FOUR TIMES A DAY, (Reported) Scheduled PRN Acetaminophen (Acetaminophen), 500 MG ORAL Q6HR PRN for For Pain, (Reported) Acetaminophen* (Tylenol Extra Strength*), 500 MG ORAL Q8H PRN for Prn Headache/Temp > 101 Bisacodyl* (Dulcolax*), 5 MG ORAL DAILY PRN for Constipation, (Reported) Patient History Healthcare decision maker Resuscitation status Advanced Directive on File Patient History Narrative Pmhx: as above Shx: reviewed Fhx: non contributory Review of Systems All Other Systems: negative except mentioned in HPI Physical Exam Physical Exam Narrative General Appearance: no apparent distress, alert Head: normocephalic, atraumatic Eyes: bilateral eye normal inspection, bilateral eye PERRL ENT: hearing grossly normal, normal voice Neck: full range of motion Respiratory: chest non-tender, lungs clear, normal breath sounds, speaking full sentences Cardiovascular #1: regular rate, rhythm, no edema Gastrointestinal: normal bowel sounds, non tender, soft, non-distended, no guarding Genitourinary: normal inspection Musculoskeletal: no calf tenderness, tender - Right hip and midline L-spine. , other - muscular atrophy to bilateral LE's. Skin: no rash, normal color Last 24 Hour Vital Signs Date Time Temp Pulse Resp B/P (MAP) Pulse Ox O2 Delivery O2 Flow Rate FiO2 06/13/20 09:39 77 145/76 06/13/20 09:00 Room Air 06/13/20 08:00 97.7 73 19 143/73 (96) 97 06/13/20 04:00 98.0 72 20 170/94 (119) 95 06/12/20 23:54 97.7 105 20 150/98 (115) 95 06/12/20 22:35 Room Air 06/12/20 21:10 98.8 105 16 116/79 95 Room Air 06/12/20 21:00 76 17 Room Air 06/12/20 16:30 98.5 76 17 155/72 98 Room Air 06/12/20 14:30 98.5 90 17 159/83 99 Room Air 06/12/20 14:16 98.2 06/12/20 12:50 98.2 88 19 160/69 98 Room Air 06/12/20 12:46 98.2 76 19 160/69 (99) 98 Room Air Intake and Output 06/12/20 06/13/20 19:00 07:00 Intake Total 540 ml Balance 540 ml Intake Oral 240 ml IV Total 300 ml # Voids 4 # Bowel Movements 1 Laboratory Tests Test 06/12/20 14:28 06/12/20 17:00 06/13/20 09:00 Urine Color Pale yellow Urine Appearance Slightly cloudy Urine pH 5 (4.5-8.0) Urine Specific [place] 1.010 (1.005-1.035) Urine Protein 3+ (NEGATIVE) H Urine Glucose (UA) Negative (NEGATIVE) Urine Ketones Negative (NEGATIVE) Urine Blood 1+ (NEGATIVE) H Urine Nitrite Negative (NEGATIVE) Urine Bilirubin Negative (NEGATIVE) Urine Urobilinogen Normal MG/DL (0.0-1.0) Urine Leukocyte Esterase Negative (NEGATIVE) Urine RBC 2-4 /HPF (0 - 2) H Urine WBC 0 /HPF (0 - 2) Urine Squamous Epithelial Cells Occasional /LPF Urine Bacteria Many /HPF (NONE) H White Blood Count 5.0 K/UL (4.8-10.8) 6.7 K/UL (4.8-10.8) Red Blood Count 3.75 M/UL (4.20-5.40) L 3.73 M/UL (4.20-5.40) L Hemoglobin 11.9 G/DL (12.0-16.0) L 11.3 G/DL (12.0-16.0) L Hematocrit 36.1 % (37.0-47.0) L 35.2 % (37.0-47.0) L Mean Corpuscular Volume 96 FL (80-99) 94 FL (80-99) Mean Corpuscular Hemoglobin 31.8 PG (27.0-31.0) H 30.4 PG (27.0-31.0) Mean Corpuscular Hemoglobin Concent 33.0 G/DL (32.0-36.0) 32.2 G/DL (32.0-36.0) Red Cell Distribution Width 14.3 % (11.6-14.8) 13.8 % (11.6-14.8) Platelet Count 145 K/UL (150-450) L 163 K/UL (150-450) Mean Platelet Volume 8.2 FL (6.5-10.1) 6.7 FL (6.5-10.1) Neutrophils (%) (Auto) 77.5 % (45.0-75.0) H 59.2 % (45.0-75.0) Lymphocytes (%) (Auto) 19.4 % (20.0-45.0) L 30.8 % (20.0-45.0) Monocytes (%) (Auto) 2.4 % (1.0-10.0) 9.4 % (1.0-10.0) Eosinophils (%) (Auto) 0.0 % (0.0-3.0) 0.2 % (0.0-3.0) Basophils (%) (Auto) 0.7 % (0.0-2.0) 0.3 % (0.0-2.0) Sodium Level 142 MMOL/L (136-145) 145 MMOL/L (136-145) Potassium Level 3.6 MMOL/L (3.5-5.1) 3.7 MMOL/L (3.5-5.1) Chloride Level 107 MMOL/L (98-107) 109 MMOL/L (98-107) H Carbon Dioxide Level 23 MMOL/L (21-32) 27 MMOL/L (21-32) Blood Urea Nitrogen 25 mg/dL (7-18) H 20 mg/dL (7-18) H Creatinine 1.5 MG/DL (0.55-1.30) H 1.3 MG/DL (0.55-1.30) Estimat Glomerular Filtration Rate 40.1 mL/min (>60) 47.3 mL/min (>60) Glucose Level 224 MG/DL (74-106) H 147 MG/DL (74-106) H Calcium Level 9.3 MG/DL (8.5-10.1) 9.0 MG/DL (8.5-10.1) Total Bilirubin 1.0 MG/DL (0.2-1.0) 0.8 MG/DL (0.2-1.0) Aspartate Amino Transf (AST/SGOT) 19 U/L (15-37) 16 U/L (15-37) Alanine Aminotransferase (ALT/SGPT) 14 U/L (12-78) 9 U/L (12-78) L Alkaline Phosphatase 84 U/L (46-116) 76 U/L (46-116) Total Protein 7.1 G/DL (6.4-8.2) 6.7 G/DL (6.4-8.2) Albumin 3.4 G/DL (3.4-5.0) 3.1 G/DL (3.4-5.0) L Globulin 3.7 g/dL 3.6 g/dL Albumin/Globulin Ratio 0.9 (1.0-2.7) L 0.9 (1.0-2.7) L Lipase 169 U/L (73-393) Anion Gap 9 mmol/L (5-15) Thyroid Stimulating Hormone (TSH) Pending Microbiology Date/Time Source Procedure Growth Status 06/12/20 14:28 Urine,Clean Catch Urine Culture - Preliminary Gram Negative [place] Resulted Height (Feet): 5 Height (Inches): 6.00 Weight (Pounds): 220 Medications Current Medications Medications (Trade) Dose Ordered Sig/Chaim Route PRN Reason Start Time Stop Time Status Last Admin Dose Admin Acetaminophen (Tylenol) 650 mg Q4H PRN ORAL fever 06/12/20 22:45 07/12/20 22:44 Albuterol/ Ipratropium (Albuterol/ Ipratropium) 3 ml EVERY 4 HOURS PRN HHN Shortness of Breath 06/12/20 22:45 06/17/20 22:44 Allopurinol (allopurinoL) 300 mg DAILY ORAL 06/13/20 09:00 07/13/20 08:59 06/13/20 09:39 Apixaban (Eliquis) 5 mg BID ORAL 06/13/20 10:30 09/11/20 10:29 06/13/20 10:44 Cefepime HCl 1 gm/ Dextrose 55 ml @ 110 mls/hr Q24H IVPB 06/13/20 00:00 06/20/20 00:00 06/13/20 00:06 Clonidine HCl (Catapres Tab) 0.1 mg EVERY 6 HOURS PRN ORAL SBP >160 06/13/20 07:30 09/11/20 07:29 Docusate Sodium (Colace) 100 mg TWICE A DAY ORAL 06/13/20 18:00 07/13/20 17:59 Lactulose (Cephulac) 20 gm THREE TIMES A DAY ORAL 06/13/20 13:00 07/13/20 12:59 Nifedipine (Procardia XL) 90 mg DAILY ORAL 06/13/20 09:00 07/13/20 08:59 06/13/20 09:39 Ondansetron HCl (Zofran) 4 mg Q6H PRN IVP Nausea & Vomiting 06/12/20 22:45 07/12/20 22:44 Pantoprazole (Protonix) 40 mg DAILY ORAL 06/13/20 09:00 07/13/20 08:59 06/13/20 09:38 Polyethylene Glycol (Miralax) 17 gm BEDTIME ORAL 06/13/20 21:00 07/13/20 20:59 Sodium Chloride 1,000 ml @ 50 mls/hr Q20H IV 06/12/20 19:15 07/12/20 19:14 06/12/20 23:35 Sucralfate (Carafate) 1 gm AC+HS ORAL 06/13/20 06:30 09/11/20 06:29 06/13/20 05:36 Temazepam (Restoril) 15 mg HSPRN PRN ORAL Insomnia 06/12/20 22:45 06/19/20 22:44 Vancomycin HCl (Vanco pharmacy to dose) 1 ea DAILY PRN MISC Per rx protocol 06/12/20 23:30 07/12/20 23:29 Assessment/Plan Assessment/Plan: Abx: IV Vancomycin 06/12- Cefepime 06/13- Assessment: Afebrile No leukocytosis Assymptomatic bacteriuria -u/a no pyuria; ucx >100k GNR R hip/Lower back pain R hip contusion -CT L spine wo: No acute bony trauma. Degenerative changes, as described above. Possible rectal fecal impaction. Incidental finding of inferior vena cava filter -CT R hip wo: No acute bony trauma. Possible contusion of the right hip region subcutaneous fat. Distended rectum with feces, rectal fecal impaction possible/ Evidence of prior hysterectomy. 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 Will continue to follow along with you. Discussed with RICK. Dang Humphrey M.D. Jun 13, 2020 12:20
--- NOTE | 2020-06-13 12:28 | NUR ---
NURSE NOTES:Skin/wound assessment: Sacral pressure ulcer stage 2 1.0x0.3x0.2 pink/white wound bed no drainage noted ,tello wound skin intact.Triad and Optifoam applied.Bilateral heels intact Optifoam applied.Patient alert and able to help when turning states "she can walk with help". RN at bedside during assessment plan of care discussed.
--- NOTE | 2020-06-13 13:00 | Consultation ---
DATE OF CONSULTATION: 06/13/2020 CHIEF COMPLAINT: Constipation. HISTORY OF PRESENT ILLNESS: The patient is an 84-year-old female who was admitted to the hospital with complaint of low back pain and hip pain. Initially, the patient was to be very constipated and GI consult requested for further evaluation. PAST MEDICAL HISTORY: 1. History of diabetes 2. Hypertension. 3. CHF. 4. CVA. 5. DVT. ALLERGIES: Penicillin, benazepril, codeine, tramadol. MEDICATIONS: Please see medication reconciliation list. SOCIAL HISTORY: The patient denies any tobacco, alcohol, or drug abuse. FAMILY HISTORY: Noncontributory. REVIEW OF SYSTEMS: The patient denies any nausea or vomiting. Denies any dysphagia. Denies any odynophagia. Denies any melena. A 10-point review of systems was performed and pertinent positives in HPI. PHYSICAL EXAMINATION: GENERAL: A well-developed female. VITAL SIGNS: Temperature 97.7, pulse 73, respirations 19, blood pressure 145/76. HEENT: Normocephalic and atraumatic. Sclerae anicteric. NECK: Supple. No evidence of obvious lymphadenopathy. CARDIOVASCULAR: Regular rate and rhythm. Plus S1 and S2. LUNGS: Clear to auscultation bilaterally. ABDOMEN: Positive bowel sounds. Soft. Minimal tenderness to palpation in left lower quadrant. No rebound. No guarding. No peritoneal sign. EXTREMITIES: No cyanosis, no clubbing, no edema. LABORATORY AND DIAGNOSTIC DATA: White count is 6.7, hemoglobin 11.3, hematocrit 35, platelet count 163. Chem-7 sodium 145, potassium 3.7, BUN 20, creatinine is 1.3, glucose is 147. ASSESSMENT AND PLAN: The patient is an 84-year-old female with numerous medical problems as dictated above. From GI standpoint, has normocytic anemia and severe constipation. Given her age, we are going to be conservative. Hold off on GI procedures unless needed. We are going to order anemia workup, stool for OB. We are going to put the patient on a bowel regimen for constipation. We will monitor for bowel movement. We also going to order thyroid panel to rule out hypothyroidism as a cause of constipation. I want to thank Dr. Mac for this kind referral. Surya Chevy Munroe DR: Paul JOB#: [id number] CC: Merissa Mac M.D.; Fax#: [phone]
[2020-06-13] MEDS: Lactulose 20gm/30ml UDC ORAL SCH ×2 (13:24→18:21)
--- NOTE | 2020-06-13 13:46 | History and Physical ---
History of Present Illness General Date patient seen: Jun 13, 2020 Reason for Hospitalization: Back Pain-No Injury Present Illness HPI 84-year-old female with hx of HTN, CHF, chronic DVT, presents to ED for evaluation of abdominal pain . Patient denies any chest pain. No shortness of breath while at rest and when walking. She had a CT of spine which didn't show any acute changes except for fecal impaction. Pt is admitted for further management. Allergies: Coded Allergies: PENICILLINS (Unverified Allergy, Mild, SICK, 03/04/17) COPIED FROM UNCODED SECTION BENAZEPRIL (Unverified Allergy, Unknown, 02/21/17) CODEINE (Unverified Allergy, Unknown, 02/21/17) TRAMADOL (Verified Allergy, Unknown, 10/01/19) COVID-19 Screening Contact w/high risk pt: No Experienced COVID-19 symptoms?: No Medication History Scheduled Allopurinol* (Allopurinol*), 300 MG ORAL DAILY Amlodipine Besylate* (Amlodipine Besylate*), 10 MG PO DAILY, (Reported) Apixaban (Eliquis*), 5 MG PO BID, (Reported) Atorvastatin Calcium* (Atorvastatin Calcium*), 40 MG ORAL BEDTIME, (Reported) Carvedilol (Coreg Cr), 80 MG ORAL DAILY, (Reported) Cholecalciferol (Vitamin D3) (Vitamin D3), 4,000 UNIT PO DAILY, (Reported) Docusate Sodium* (Colace*), 100 MG ORAL BEDTIME, (Reported) Fluticasone/Vilanterol (Breo Ellipta 100-25 Mcg INH), 1 EACH IH DAILY, ( Reported) Insulin Glargine (Lantus), 0 SUBQ BEDTIME, (Reported) Isosorbide Mononitrate (Isosorbide Mononitrate Er), 30 MG PO DAILY, (Reported) Latanoprost* (Xalatan*), 1 DROP BOTH EYES BEDTIME, (Reported) Lidocaine Patch* (Lidoderm Patch*), 1 PATCH TOPIC DAILY, (Reported) Menthol/Zinc Oxide (Menthol-Zinc Oxide 0.45%-20%), 113 GM TP BID, (Reported) Methocarbamol* (Robaxin-500*), 375 MG ORAL TID, (Reported) Nifedipine* (Nifedipine Er*), 90 MG ORAL DAILY, (Reported) Pantoprazole* (Pantoprazole*), 40 MG PO DAILY, (Reported) Sucralfate* (Carafate*), 1 GM ORAL FOUR TIMES A DAY, (Reported) Scheduled PRN Acetaminophen (Acetaminophen), 500 MG ORAL Q6HR PRN for For Pain, (Reported) Acetaminophen* (Tylenol Extra Strength*), 500 MG ORAL Q8H PRN for Prn Headache/Temp > 101 Bisacodyl* (Dulcolax*), 5 MG ORAL DAILY PRN for Constipation, (Reported) Patient History Healthcare decision maker Resuscitation status Advanced Directive on File Past Medical/Surgical History Past Medical/Surgical History: (1) Pulmonary edema (2) CHF (congestive heart failure) (3) Bursitis (4) S/P IVC filter (5) Chronic deep vein thrombosis (DVT) Review of Systems All Other Systems: negative except mentioned in HPI Physical Exam General Appearance: WD/WN, no apparent distress Lines, tubes and drains: peripheral HEENT: normocephalic, atraumatic Neck: non-tender, normal alignment, supple Respiratory/Chest: chest wall non-tender, lungs clear, normal breath sounds Breasts: no masses Cardiovascular/Chest: normal rate Genitourinary/Rectal: normal genital exam, normal rectal exam Extremities: normal range of motion, non-tender Neurologic: relief master II-XII grossly normal Last 24 Hour Vital Signs Date Time Temp Pulse Resp B/P (MAP) Pulse Ox O2 Delivery O2 Flow Rate FiO2 06/13/20 12:00 98.0 75 18 149/75 (99) 97 06/13/20 09:39 77 145/76 06/13/20 09:00 Room Air 06/13/20 08:00 97.7 73 19 143/73 (96) 97 06/13/20 04:00 98.0 72 20 170/94 (119) 95 06/12/20 23:54 97.7 105 20 150/98 (115) 95 06/12/20 22:35 Room Air 06/12/20 21:10 98.8 105 16 116/79 95 Room Air 06/12/20 21:00 76 17 Room Air 06/12/20 16:30 98.5 76 17 155/72 98 Room Air 06/12/20 14:30 98.5 90 17 159/83 99 Room Air 06/12/20 14:16 98.2 Intake and Output0 06/12/20 06/13/20 19:00 07:00 Intake Total 540 ml Balance 540 ml Intake Oral 240 ml IV Total 300 ml # Voids 4 # Bowel Movements 1 Laboratory Tests Test 06/12/20 14:28 06/12/20 17:00 06/13/20 09:00 Urine Color Pale yellow Urine Appearance Slightly cloudy Urine pH 5 (4.5-8.0) Urine Specific [place] 1.010 (1.005-1.035) Urine Protein 3+ (NEGATIVE) H Urine Glucose (UA) Negative (NEGATIVE) Urine Ketones Negative (NEGATIVE) Urine Blood 1+ (NEGATIVE) H Urine Nitrite Negative (NEGATIVE) Urine Bilirubin Negative (NEGATIVE) Urine Urobilinogen Normal MG/DL (0.0-1.0) Urine Leukocyte Esterase Negative (NEGATIVE) Urine RBC 2-4 /HPF (0 - 2) H Urine WBC 0 /HPF (0 - 2) Urine Squamous Epithelial Cells Occasional /LPF Urine Bacteria Many /HPF (NONE) H White Blood Count 5.0 K/UL (4.8-10.8) 6.7 K/UL (4.8-10.8) Red Blood Count 3.75 M/UL (4.20-5.40) L 3.73 M/UL (4.20-5.40) L Hemoglobin 11.9 G/DL (12.0-16.0) L 11.3 G/DL (12.0-16.0) L Hematocrit 36.1 % (37.0-47.0) L 35.2 % (37.0-47.0) L Mean Corpuscular Volume 96 FL (80-99) 94 FL (80-99) Mean Corpuscular Hemoglobin 31.8 PG (27.0-31.0) H 30.4 PG (27.0-31.0) Mean Corpuscular Hemoglobin Concent 33.0 G/DL (32.0-36.0) 32.2 G/DL (32.0-36.0) Red Cell Distribution Width 14.3 % (11.6-14.8) 13.8 % (11.6-14.8) Platelet Count 145 K/UL (150-450) L 163 K/UL (150-450) Mean Platelet Volume 8.2 FL (6.5-10.1) 6.7 FL (6.5-10.1) Neutrophils (%) (Auto) 77.5 % (45.0-75.0) H 59.2 % (45.0-75.0) Lymphocytes (%) (Auto) 19.4 % (20.0-45.0) L 30.8 % (20.0-45.0) Monocytes (%) (Auto) 2.4 % (1.0-10.0) 9.4 % (1.0-10.0) Eosinophils (%) (Auto) 0.0 % (0.0-3.0) 0.2 % (0.0-3.0) Basophils (%) (Auto) 0.7 % (0.0-2.0) 0.3 % (0.0-2.0) Sodium Level 142 MMOL/L (136-145) 145 MMOL/L (136-145) Potassium Level 3.6 MMOL/L (3.5-5.1) 3.7 MMOL/L (3.5-5.1) Chloride Level 107 MMOL/L (98-107) 109 MMOL/L (98-107) H Carbon Dioxide Level 23 MMOL/L (21-32) 27 MMOL/L (21-32) Blood Urea Nitrogen 25 mg/dL (7-18) H 20 mg/dL (7-18) H Creatinine 1.5 MG/DL (0.55-1.30) H 1.3 MG/DL (0.55-1.30) Estimat Glomerular Filtration Rate 40.1 mL/min (>60) 47.3 mL/min (>60) Glucose Level 224 MG/DL (74-106) H 147 MG/DL (74-106) H Calcium Level 9.3 MG/DL (8.5-10.1) 9.0 MG/DL (8.5-10.1) Total Bilirubin 1.0 MG/DL (0.2-1.0) 0.8 MG/DL (0.2-1.0) Aspartate Amino Transf (AST/SGOT) 19 U/L (15-37) 16 U/L (15-37) Alanine Aminotransferase (ALT/SGPT) 14 U/L (12-78) 9 U/L (12-78) L Alkaline Phosphatase 84 U/L (46-116) 76 U/L (46-116) Total Protein 7.1 G/DL (6.4-8.2) 6.7 G/DL (6.4-8.2) Albumin 3.4 G/DL (3.4-5.0) 3.1 G/DL (3.4-5.0) L Globulin 3.7 g/dL 3.6 g/dL Albumin/Globulin Ratio 0.9 (1.0-2.7) L 0.9 (1.0-2.7) L Lipase 169 U/L (73-393) Anion Gap 9 mmol/L (5-15) Thyroid Stimulating Hormone (TSH) 1.385 uiU/mL (0.358-3.740) Microbiology Date/Time Source Procedure Growth Status 06/12/20 14:28 Urine,Clean Catch Urine Culture - Preliminary Gram Negative [place] Resulted Height (Feet): 5 Height (Inches): 6.00 Weight (Pounds): 220 Medications Current Medications Medications (Trade) Dose Ordered Sig/Chaim Route PRN Reason Start Time Stop Time Status Last Admin Dose Admin Acetaminophen (Tylenol) 650 mg Q4H PRN ORAL fever 06/12/20 22:45 07/12/20 22:44 Albuterol/ Ipratropium (Albuterol/ Ipratropium) 3 ml EVERY 4 HOURS PRN HHN Shortness of Breath 06/12/20 22:45 06/17/20 22:44 Allopurinol (allopurinoL) 300 mg DAILY ORAL 06/13/20 09:00 07/13/20 08:59 06/13/20 09:39 Apixaban (Eliquis) 5 mg BID ORAL 06/13/20 10:30 09/11/20 10:29 06/13/20 10:44 Cefepime HCl 1 gm/ Dextrose 55 ml @ 110 mls/hr Q24H IVPB 06/13/20 00:00 06/20/20 00:00 06/13/20 00:06 Clonidine HCl (Catapres Tab) 0.1 mg EVERY 6 HOURS PRN ORAL SBP >160 06/13/20 07:30 09/11/20 07:29 Docusate Sodium (Colace) 100 mg TWICE A DAY ORAL 06/13/20 18:00 07/13/20 17:59 Lactulose (Cephulac) 20 gm THREE TIMES A DAY ORAL 06/13/20 13:00 07/13/20 12:59 06/13/20 13:24 Nifedipine (Procardia XL) 90 mg DAILY ORAL 06/13/20 09:00 07/13/20 08:59 06/13/20 09:39 Ondansetron HCl (Zofran) 4 mg Q6H PRN IVP Nausea & Vomiting 06/12/20 22:45 07/12/20 22:44 Pantoprazole (Protonix) 40 mg DAILY ORAL 06/13/20 09:00 07/13/20 08:59 06/13/20 09:38 Polyethylene Glycol (Miralax) 17 gm BEDTIME ORAL 06/13/20 21:00 07/13/20 20:59 Sodium Chloride 1,000 ml @ 50 mls/hr Q20H IV 06/12/20 19:15 07/12/20 19:14 06/12/20 23:35 Sucralfate (Carafate) 1 gm AC+HS ORAL 06/13/20 06:30 09/11/20 06:29 06/13/20 12:20 Temazepam (Restoril) 15 mg HSPRN PRN ORAL Insomnia 06/12/20 22:45 06/19/20 22:44 Assessment/Plan Problem List: (1) Fecal impaction ICD Codes: K56.41 - Fecal impaction SNOMED: 18078407 (2) DILLAN (acute kidney injury) ICD Codes: N17.9 - Acute kidney failure, unspecified SNOMED: 29870973, 3034873 (3) Chronic deep vein thrombosis (DVT) ICD Codes: I82.509 - Chronic embolism and thrombosis of unspecified deep veins of unspecified lower extremity SNOMED: 93788484137567581 (4) S/P IVC filter ICD Codes: Z95.828 - Presence of other vascular implants and grafts SNOMED: 22399907, 235299729, [id number] Assessment/Plan: iv fluids stool softeners and enema GI evaluation check electrolytes renal studies dvt prophylaxis symptomatic treatment. Merissa Mac MD Jun 13, 2020 13:46
--- NOTE | 2020-06-13 14:40 | Diagnostic Imaging Report ---
Indication: Abdominal pain Technique: Supine view of the abdomen Comparison: none Findings: There is an inferior vena cava filter in place. Considerable stool is seen in the descending colon and rectum, and to a lesser extent in the ascending colon. No small bowel distention demonstrated. No masses or unusual calcifications. There is suggestion of some infiltrate at the included left lung base. There is lumbar levoscoliotic deformity Impression: Evidence of constipation. Correlate with clinical findings Other findings as noted
[2020-06-13 16:00] VITALS: BP 142/67
[2020-06-13] MEDS: Docusate 100mg cap ORAL SCH (18:22)
--- NOTE | 2020-06-13 19:00 | NUR ---
NURSE NOTES: Patient IV out unable to restart,will endorse.Bed alarm on,call light within reach.
--- NOTE | 2020-06-13 19:40 | NUR ---
NURSE NOTES: Received report from RICK Young. Pt resting in bed, on room air, AAO x 4. No IV access noted. Will try new IV. Denies pain. No acute distress noted. Bed locked, lowest position, alarm on, side rails up, call light within reach. Will continue to monitor.
--- NOTE | 2020-06-13 19:40 | NUR ---
NURSE HAND-OFSophia RN: Important Events on Shift:[] patient received Tap water enema,dulocax suppository,large soft formed BM today. Patient Status: [] Diet: [] Pending Orders: [] Pending Results/Labs:[] Pending MD notification:[] Latest Vital Signs: Temperature 97.9 , Pulse 75 , B/P 145 /98 , Respiratory Rate 18 , O2 SAT 98 , Room Air, O2 Flow Rate . Vital Sign Comment: [] Latest Anand Fall Score: 40 Fall Risk: Medium Risk Safety Measures: Call light Within Reach, Bed Alarm Zone 1, Side Rails Side Rails x2, Bed position Low and Locked. Fall Precautions: y,bed alarm on. Yellow Socks y Door Sign y Report given to [].
[2020-06-13 20:00] VITALS: BP 145/98
[2020-06-13] MEDS ORDERED: Cefepime 2gm/D5W 110ml IV SCH ×2 (21:00)
[2020-06-13] MEDS ORDERED: Miralax 17gm pkt ORAL SCH (21:00)
[2020-06-14] VITALS: BP 149/79
[2020-06-14 04:00] VITALS: BP 162/92
[2020-06-14] MEDS: Sucralfate 1gm tab ORAL SCH ×3 (05:37→17:21)
--- NOTE | 2020-06-14 06:42 | NUR ---
NURSE HAND-OFF: Important Events on Shift:HTN Patient Status: stable Diet: reg Pending Orders: N Pending Results/Labs:AM labs Pending MD notification:N Latest Vital Signs: Temperature 97.9 , Pulse 83 , B/P 161 /92 , Respiratory Rate 18 , O2 SAT 96 , Room Air, O2 Flow Rate . Vital Sign Comment: [] Latest Anand Fall Score: 40 Fall Risk: Medium Risk Safety Measures: Call light Within Reach, Bed Alarm Zone 1, Side Rails Side Rails x2, Bed position Low and Locked. Fall Precautions: Yellow Socks Door Sign Addendum: 06/14/20 at 0714 by TOREY KELLEY RN RN HAND-OFF: Report given to
[2020-06-14 06:56] LABS: BASOPHILS % (AUTO) 0.5 % (0.0-2.0); EOSINOPHILS % (AUTO) 0.4 % (0.0-3.0); HEMATOCRIT 36.6 % (37.0-47.0); LYMPHOCYTES % (AUTO) 30.7 % (20.0-45.0); MEAN CORPUSCULAR VOLUME 94 FL (80-99); MONOCYTES % (AUTO) 6.7 % (1.0-10.0); NEUTROPHILS % (AUTO) 61.7 % (45.0-75.0); PLATELET COUNT 172 K/UL (150-450); RED BLOOD COUNT 3.88 M/UL (4.20-5.40); RED CELL DISTRIBUTION WIDTH 14.2 % (11.6-14.8); WHITE BLOOD COUNT 6.7 K/UL (4.8-10.8)
[2020-06-14 07:11] LABS: PHOSPHORUS 2.8 MG/DL (2.5-4.9)
[2020-06-14 07:17] LABS: ALBUMIN 3.2 G/DL (3.4-5.0); ALBUMIN/GLOBULIN RATIO 0.9 (1.0-2.7); BILIRUBIN,TOTAL 0.9 MG/DL (0.2-1.0); CALCIUM 8.8 MG/DL (8.5-10.1); CREATININE 1.3 MG/DL (0.55-1.30); POTASSIUM 3.4 MMOL/L (3.5-5.1)
[2020-06-14 08:00] VITALS: BP 129/72
--- NOTE | 2020-06-14 08:05 | NUR ---
NURSE NOTES: patient resting at this time,ate some of her breakfast.IV fluids infusing as ordered.Pure wick in place with clear yellow urine noted in collection container.Bed alarm on,call light within reach.patient is oriented.
--- NOTE | 2020-06-14 08:58 | NUR ---
RD ASSESSMENT & RECOMMENDATIONS SEE CARE ACTIVITY FOR COMPLETE ASSESSMENT DAILY ESTIMATED NEEDS: Needs based on Wound, 65.3kg abw 25-30 kcals/kg 2966-4029 total kcals 1.25-1.5 g protein/kg 82-98 g total protein 20-30ml/kcal mL/kg 9759-4979 total fluid mLs NUTRITION DIAGNOSIS: Increased protein needs R/T wound care as evidenced by stage 2 sacral pressure injury. CURRENT DIET: Regular PO DIET RECOMMENDATIONS: CCHO MED/ texture as tolerated ADDITIONAL RECOMMENDATIONS: * Add Glucerna 1 can TID w/ meals- until PO intake improves * Monitor lytes, replete as needed (Low K, Mg) * Wound care: Add SHELLEY BID * Obtain HgA1C for eval BG elevated (147-224), rec NISS
[2020-06-14] MEDS: Lactulose 20gm/30ml UDC ORAL SCH ×3 (09:08→17:58)
[2020-06-14] MEDS: Docusate 100mg cap ORAL SCH ×2 (09:08→17:58)
[2020-06-14] MEDS: Eliquis 5mg tablet ORAL SCH ×2 (09:08→17:58)
--- NOTE | 2020-06-14 09:33 | General Progress Note ---
Subjective ROS Limited/Unobtainable: Yes Allergies: Coded Allergies: PENICILLINS (Unverified Allergy, Mild, SICK, 03/04/17) COPIED FROM UNCODED SECTION BENAZEPRIL (Unverified Allergy, Unknown, 02/21/17) CODEINE (Unverified Allergy, Unknown, 02/21/17) TRAMADOL (Verified Allergy, Unknown, 10/01/19) Objective Last 24 Hour Vital Signs Date Time Temp Pulse Resp B/P (MAP) Pulse Ox O2 Delivery O2 Flow Rate FiO2 06/14/20 09:17 80 126/71 06/14/20 08:00 98.1 76 20 129/72 (91) 97 06/14/20 05:37 161/92 06/14/20 04:00 97.9 83 18 162/92 (115) 96 06/14/20 00:00 97.5 80 18 149/79 (102) 98 06/13/20 21:00 Room Air 06/13/20 20:09 75 18 98 Room Air 21 06/13/20 20:00 97.9 73 18 145/98 (114) 98 06/13/20 16:00 98.0 63 19 142/67 (92) 97 06/13/20 12:00 98.0 75 18 149/75 (99) 97 06/13/20 09:39 77 145/76 Intake and Output 06/13/20 06/14/20 19:00 07:00 Intake Total 1150 ml 550 ml Output Total 200 ml Balance 1150 ml 350 ml IV Total 550 ml 550 ml Other 600 ml Output Urine Total 200 ml # Voids 2 Laboratory Tests 06/14/20 05:55: White Blood Count 6.7, Red Blood Count 3.88L, Hemoglobin 12.0, Hematocrit 36.6L, Mean Corpuscular Volume 94, Mean Corpuscular Hemoglobin 30.9, Mean Corpuscular Hemoglobin Concent 32.8, Red Cell Distribution Width 14.2, Platelet Count 172, Mean Platelet Volume 6.7, Neutrophils (%) (Auto) 61.7, Lymphocytes (%) (Auto) 30.7, Monocytes (%) (Auto) 6.7, Eosinophils (%) (Auto) 0.4, Basophils (%) (Auto) 0.5, Erythrocyte Sedimentation Rate 35H, Sodium Level 143, Potassium Level 3.4L, Chloride Level 109H, Carbon Dioxide Level 26, Anion Gap 8, Blood Urea Nitrogen 14, Creatinine 1.3, Estimat Glomerular Filtration Rate 47.3, Glucose Level 163H, Calcium Level 8.8, Phosphorus Level 2.8, Magnesium Level 1.5L, Total Bilirubin 0.9, Aspartate Amino Transf (AST/SGOT) 19, Alanine Aminotransferase (ALT/SGPT) 9L, Alkaline Phosphatase 78, C-Reactive Protein, Quantitative < 0.4, Total Protein 6.6, Albumin 3.2L, Globulin 3.4, Albumin/Globulin Ratio 0.9L, Free Thyroxine 1.66H Height (Feet): 5 Height (Inches): 6.00 Weight (Pounds): 220 General Appearance: no apparent distress EENT: normal ENT inspection Neck: supple Cardiovascular: normal rate Respiratory/Chest: decreased breath sounds Abdomen: normal bowel sounds, non tender, soft Extremities: non-tender Assessment/Plan Assessment/Plan: 1. History of diabetes 2. Hypertension. 3. CHF. 4. CVA. 5. DVT. 6. UTI 7. Fecal impaction bowel regimen had multiple BM fu labs abx for UTI by primary team Surya Munroe MD Jun 14, 2020 09:33
--- NOTE | 2020-06-14 09:39 | NUR ---
NURSE NOTES: DR Munroe called and updated that patient had a large BM yesterday after receiving tap water enema and the dulcolax suppository also on patient labs today,potassium 3.4 and magnesium level 1.[address] gallardo will review and input orders.
--- NOTE | 2020-06-14 10:31 | Pulmonology Progress Note ---
Subjective ROS Limited/Unobtainable: Yes Constitutional: Reports: no symptoms HEENT: Repors: no symptoms Respiratory: Reports: no symptoms Allergies: Coded Allergies: PENICILLINS (Unverified Allergy, Mild, SICK, 03/04/17) COPIED FROM UNCODED SECTION BENAZEPRIL (Unverified Allergy, Unknown, 02/21/17) CODEINE (Unverified Allergy, Unknown, 02/21/17) TRAMADOL (Verified Allergy, Unknown, 10/01/19) Objective Last 24 Hour Vital Signs Date Time Temp Pulse Resp B/P (MAP) Pulse Ox O2 Delivery O2 Flow Rate FiO2 06/14/20 09:31 Room Air 06/14/20 09:17 80 126/71 06/14/20 08:00 98.1 76 20 129/72 (91) 97 06/14/20 05:37 161/92 06/14/20 04:00 97.9 83 18 162/92 (115) 96 06/14/20 00:00 97.5 80 18 149/79 (102) 98 06/13/20 21:00 Room Air 06/13/20 20:09 75 18 98 Room Air 21 06/13/20 20:00 97.9 73 18 145/98 (114) 98 06/13/20 16:00 98.0 63 19 142/67 (92) 97 06/13/20 12:00 98.0 75 18 149/75 (99) 97 Intake and Output 06/13/20 06/14/20 19:00 07:00 Intake Total 1150 ml 550 ml Output Total 200 ml Balance 1150 ml 350 ml IV Total 550 ml 550 ml Other 600 ml Output Urine Total 200 ml # Voids 2 General Appearance: WD/WN HEENT: normocephalic, atraumatic Respiratory: chest wall non-tender, lungs clear Breasts: no masses Cardiovascular: normal peripheral pulses, normal rate Abdomen: normal bowel sounds, soft, non tender Skin: no rash Microbiology Date/Time Source Procedure Growth Status 06/12/20 20:30 Nasal Nares MRSA Culture - Final NO METHICILLIN RESISTANT STAPH AUREUS... Complete 06/12/20 14:28 Urine,Clean Catch Urine Culture - Final Escherichia Coli Complete Laboratory Tests 06/14/20 05:55: White Blood Count 6.7, Red Blood Count 3.88L, Hemoglobin 12.0, Hematocrit 36.6L, Mean Corpuscular Volume 94, Mean Corpuscular Hemoglobin 30.9, Mean Corpuscular Hemoglobin Concent 32.8, Red Cell Distribution Width 14.2, Platelet Count 172, Mean Platelet Volume 6.7, Neutrophils (%) (Auto) 61.7, Lymphocytes (%) (Auto) 30.7, Monocytes (%) (Auto) 6.7, Eosinophils (%) (Auto) 0.4, Basophils (%) (Auto) 0.5, Erythrocyte Sedimentation Rate 35H, Sodium Level 143, Potassium Level 3.4L, Chloride Level 109H, Carbon Dioxide Level 26, Anion Gap 8, Blood Urea Nitrogen 14, Creatinine 1.3, Estimat Glomerular Filtration Rate 47.3, Glucose Level 163H, Calcium Level 8.8, Phosphorus Level 2.8, Magnesium Level 1.5L, Total Bilirubin 0.9, Aspartate Amino Transf (AST/SGOT) 19, Alanine Aminotransferase (ALT/SGPT) 9L, Alkaline Phosphatase 78, C-Reactive Protein, Quantitative < 0.4, Total Protein 6.6, Albumin 3.2L, Globulin 3.4, Albumin/Globulin Ratio 0.9L, Free Thyroxine 1.66H Current Medications Medications (Trade) Dose Ordered Sig/Chaim Route PRN Reason Start Time Stop Time Status Last Admin Dose Admin Acetaminophen (Tylenol) 650 mg Q4H PRN ORAL fever 06/12/20 22:45 07/12/20 22:44 Albuterol/ Ipratropium (Albuterol/ Ipratropium) 3 ml EVERY 4 HOURS PRN HHN Shortness of Breath 06/12/20 22:45 06/17/20 22:44 Allopurinol (allopurinoL) 300 mg DAILY ORAL 06/13/20 09:00 07/13/20 08:59 06/14/20 09:08 Apixaban (Eliquis) 5 mg BID ORAL 06/13/20 10:30 09/11/20 10:29 06/14/20 09:08 Clonidine HCl (Catapres Tab) 0.1 mg EVERY 6 HOURS PRN ORAL SBP >160 06/13/20 07:30 09/11/20 07:29 06/14/20 05:37 Docusate Sodium (Colace) 100 mg TWICE A DAY ORAL 06/13/20 18:00 07/13/20 17:59 06/14/20 09:08 Lactulose (Cephulac) 20 gm THREE TIMES A DAY ORAL 06/13/20 13:00 07/13/20 12:59 06/14/20 09:08 Magnesium Sulfate 100 ml @ 100 mls/hr Q1H IVPB 06/14/20 10:30 06/14/20 13:29 06/14/20 10:15 Nifedipine (Procardia XL) 90 mg DAILY ORAL 06/13/20 09:00 07/13/20 08:59 06/14/20 09:17 Ondansetron HCl (Zofran) 4 mg Q6H PRN IVP Nausea & Vomiting 06/12/20 22:45 07/12/20 22:44 Pantoprazole (Protonix) 40 mg DAILY ORAL 06/13/20 09:00 07/13/20 08:59 06/14/20 09:08 Polyethylene Glycol (Miralax) 17 gm BEDTIME ORAL 06/13/20 21:00 07/13/20 20:59 06/13/20 20:05 Potassium Chloride 100 ml @ 100 mls/hr Q1H IVPB 06/14/20 12:30 06/14/20 14:29 Sodium Chloride 1,000 ml @ 50 mls/hr Q20H IV 06/12/20 19:15 07/12/20 19:14 06/13/20 21:05 Sucralfate (Carafate) 1 gm AC+HS ORAL 06/13/20 06:30 09/11/20 06:29 06/14/20 05:37 Temazepam (Restoril) 15 mg HSPRN PRN ORAL Insomnia 06/12/20 22:45 06/19/20 22:44 Assessment/Plan Problems: (1) Fecal impaction (2) DILLAN (acute kidney injury) (3) Chronic deep vein thrombosis (DVT) (4) S/P IVC filter Assessment/Plan doing better K supplement had a big BM feeling better eating well dc home today. Merissa Mac MD Jun 14, 2020 10:31
[2020-06-14 12:00] VITALS: BP 137/82
--- NOTE | 2020-06-14 13:16 | NUR ---
NURSE NOTES: Patient requested an ambulance upon discharge stating there is no one to pick her up and family has no car. RN spoke to Sofia who said to call CM from patient's insurance. RN also received call from Pineda from who asked to call doctor if patient's admission status can be changed from inpatient to observation due to authorization. Dr. Mac made aware and he agreed. Dr. Mac also agreed to discharge patient after magnesium,potassium IVPB. And systems requirements planner Mónica said she set up the ambulance @2:00pm. 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
--- NOTE | 2020-06-14 15:12 | Infectious Diseases Prog Note ---
Assessment/Plan Assessment: Afebrile No leukocytosis Assymptomatic bacteriuria -u/a no pyuria; ucx >100k E.coli (R levaquin and macrobid;o therwise S) R hip/Lower back pain R hip contusion -CT L spine wo: No acute bony trauma. Degenerative changes, as described above. Possible rectal fecal impaction. Incidental finding of inferior vena cava filter -CT R hip wo: No acute bony trauma. Possible contusion of the right hip region subcutaneous fat. Distended rectum with feces, rectal fecal impaction possible/ Evidence of prior hysterectomy. Degenerative spondylosis changes DILLAN, improvnig Dm2 HTN CHF asthma Dementia spinal stenosis sp cholecystectomy sp hysterectomy hx of esophagitis hx of colitis adhesive capsulitis of right shoulder hx of CVA/TIA hx of DVT sp IVC filter placement SNF resident Plan: -Cont to monitor off abx unless febrile, leukocytosis and/or urinary symptoms -06/13 SP IV Vancomycin #2, Cefepime #1 -f/u cx -Monitor CBC/CMP, temperatures -Gi eval Thank you for this consultation. Will continue to follow along with you. Discussed with RN. Subjective Allergies: Coded Allergies: PENICILLINS (Unverified Allergy, Mild, SICK, 03/04/17) COPIED FROM UNCODED SECTION BENAZEPRIL (Unverified Allergy, Unknown, 02/21/17) CODEINE (Unverified Allergy, Unknown, 02/21/17) TRAMADOL (Verified Allergy, Unknown, 10/01/19) afebrile no leukocytosis Objective Last 24 Hour Vital Signs Date Time Temp Pulse Resp B/P (MAP) Pulse Ox O2 Delivery O2 Flow Rate FiO2 06/14/20 12:00 97.7 78 19 137/82 (100) 97 06/14/20 09:31 Room Air 06/14/20 09:17 80 126/71 06/14/20 08:00 98.1 76 20 129/72 (91) 97 06/14/20 05:37 161/92 06/14/20 04:00 97.9 83 18 162/92 (115) 96 06/14/20 00:00 97.5 80 18 149/79 (102) 98 06/13/20 21:00 Room Air 06/13/20 20:09 75 18 98 Room Air 21 06/13/20 20:00 97.9 73 18 145/98 (114) 98 06/13/20 16:00 98.0 63 19 142/67 (92) 97 Height (Feet): 5 Height (Inches): 6.00 Weight (Pounds): 220 General Appearance: no apparent distress, alert Head: normocephalic, atraumatic Eyes: bilateral eye normal inspection, bilateral eye PERRL ENT: hearing grossly normal, normal voice Neck: full range of motion Respiratory: chest non-tender, lungs clear, normal breath sounds, speaking full sentences Cardiovascular #1: regular rate, rhythm, no edema Gastrointestinal: normal bowel sounds, non tender, soft, non-distended, no guarding Genitourinary: normal inspection Musculoskeletal: no calf tenderness, tender - Right hip and midline L-spine. , other - muscular atrophy to bilateral LE's. Skin: no rash, normal color Microbiology Date/Time Source Procedure Growth Status 06/12/20 20:30 Nasal Nares MRSA Culture - Final NO METHICILLIN RESISTANT STAPH AUREUS... Complete 06/12/20 14:28 Urine,Clean Catch Urine Culture - Final Escherichia Coli Complete Laboratory Tests Test 06/14/20 05:55 White Blood Count 6.7 K/UL (4.8-10.8) Red Blood Count 3.88 M/UL (4.20-5.40) L Hemoglobin 12.0 G/DL (12.0-16.0) Hematocrit 36.6 % (37.0-47.0) L Mean Corpuscular Volume 94 FL (80-99) Mean Corpuscular Hemoglobin 30.9 PG (27.0-31.0) Mean Corpuscular Hemoglobin Concent 32.8 G/DL (32.0-36.0) Red Cell Distribution Width 14.2 % (11.6-14.8) Platelet Count 172 K/UL (150-450) Mean Platelet Volume 6.7 FL (6.5-10.1) Neutrophils (%) (Auto) 61.7 % (45.0-75.0) Lymphocytes (%) (Auto) 30.7 % (20.0-45.0) Monocytes (%) (Auto) 6.7 % (1.0-10.0) Eosinophils (%) (Auto) 0.4 % (0.0-3.0) Basophils (%) (Auto) 0.5 % (0.0-2.0) Erythrocyte Sedimentation Rate 35 MM/HR (0-30) H Sodium Level 143 MMOL/L (136-145) Potassium Level 3.4 MMOL/L (3.5-5.1) L Chloride Level 109 MMOL/L (98-107) H Carbon Dioxide Level 26 MMOL/L (21-32) Anion Gap 8 mmol/L (5-15) Blood Urea Nitrogen 14 mg/dL (7-18) Creatinine 1.3 MG/DL (0.55-1.30) Estimat Glomerular Filtration Rate 47.3 mL/min (>60) Glucose Level 163 MG/DL (74-106) H Calcium Level 8.8 MG/DL (8.5-10.1) Phosphorus Level 2.8 MG/DL (2.5-4.9) Magnesium Level 1.5 MG/DL (1.8-2.4) L Total Bilirubin 0.9 MG/DL (0.2-1.0) Aspartate Amino Transf (AST/SGOT) 19 U/L (15-37) Alanine Aminotransferase (ALT/SGPT) 9 U/L (12-78) L Alkaline Phosphatase 78 U/L (46-116) C-Reactive Protein, Quantitative < 0.4 mg/dL (0.00-0.90) Total Protein 6.6 G/DL (6.4-8.2) Albumin 3.2 G/DL (3.4-5.0) L Globulin 3.4 g/dL Albumin/Globulin Ratio 0.9 (1.0-2.7) L Free Thyroxine 1.66 NG/DL (0.76-1.46) H Current Medications Medications (Trade) Dose Ordered Sig/Chaim Route PRN Reason Start Time Stop Time Status Last Admin Dose Admin Acetaminophen (Tylenol) 650 mg Q4H PRN ORAL fever 06/12/20 22:45 07/12/20 22:44 Albuterol/ Ipratropium (Albuterol/ Ipratropium) 3 ml EVERY 4 HOURS PRN HHN Shortness of Breath 06/12/20 22:45 06/17/20 22:44 Allopurinol (allopurinoL) 300 mg DAILY ORAL 06/13/20 09:00 07/13/20 08:59 06/14/20 09:08 Apixaban (Eliquis) 5 mg BID ORAL 06/13/20 10:30 09/11/20 10:29 06/14/20 09:08 Clonidine HCl (Catapres Tab) 0.1 mg EVERY 6 HOURS PRN ORAL SBP >160 06/13/20 07:30 09/11/20 07:29 06/14/20 05:37 Docusate Sodium (Colace) 100 mg TWICE A DAY ORAL 06/13/20 18:00 07/13/20 17:59 06/14/20 09:08 Lactulose (Cephulac) 20 gm THREE TIMES A DAY ORAL 06/13/20 13:00 07/13/20 12:59 06/14/20 13:29 Nifedipine (Procardia XL) 90 mg DAILY ORAL 06/13/20 09:00 07/13/20 08:59 06/14/20 09:17 Ondansetron HCl (Zofran) 4 mg Q6H PRN IVP Nausea & Vomiting 06/12/20 22:45 07/12/20 22:44 Pantoprazole (Protonix) 40 mg DAILY ORAL 06/13/20 09:00 07/13/20 08:59 06/14/20 09:08 Polyethylene Glycol (Miralax) 17 gm BEDTIME ORAL 06/13/20 21:00 07/13/20 20:59 06/13/20 20:05 Sodium Chloride 1,000 ml @ 50 mls/hr Q20H IV 06/12/20 19:15 07/12/20 19:14 06/13/20 21:05 Sucralfate (Carafate) 1 gm AC+HS ORAL 06/13/20 06:30 09/11/20 06:29 06/14/20 11:17 Temazepam (Restoril) 15 mg HSPRN PRN ORAL Insomnia 06/12/20 22:45 06/19/20 22:44 Dang Humphrey M.D. Jun 14, 2020 15:12
--- NOTE | 2020-06-14 15:59 | NUR ---
NURSE NOTES: brazing furnace feeder called [facility] and set up the ambulance for 5pm the earliest one. RN informed patient's daughter Gabriel Nieves, she said her another sister would home [phone] (cell) [phone] (home)
[2020-06-14 16:00] VITALS: BP 137/96
--- NOTE | 2020-06-14 18:54 | NUR ---
NURSE NOTES: [facility] personnel here to take patient home.Patient has her personal belongings,her cell phone and hand booked folder and stitcher.IV removed and ID hospital band removed.patient daughter is waiting for patient at home.Discharge education given.
--- NOTE | 2020-06-15 16:39 | Discharge Summary ---
Discharge Summary Discharge Summary _ DATE OF ADMISSION: 06/12/2020 DATE OF DISCHARGE: 06/14/2020 DISCHARGED BY: Dr. Mac REASON FOR ADMISSION: 84 years old female with past medical history of hypertension, congestive heart failure, chronic DVT, presented to emergency department for evaluation of abdominal pain along with low back and right hip pain. She denied trauma or fall . She ambulates with walker and assistance of others. Patient denied chest pain or shortness of breath. Laboratory work-up revealed no leukocytosis, mild anemia with hemoglobin 11.9, hematocrit 36.1. BUN 25, creatinine 1.5. Stable electrolytes and LFT. Albumin 3.4. Urinalysis revealed +3 protein, many bacteria but no pyuria. CT scan of the lumbar spine revealed no acute bony trauma. Degenerative changes. Possible rectal fecal impaction. Incidental finding of inferior vena cava filter CT spine of the right hip revealed no acute bony trauma. Possible contusion of the right hip region. Distended rectum with feces . rectal fecal impaction possible. Patient subsequently admitted to medical surgical floor for further management. CONSULTANTS: ID specialist Dr. Humphrey GI specialist Dr. Munroe [facility] COURSE: Patient admitted to medical surgical floor and started on IV hydration and empirici antibitoic. Bowel regimen instituted. GI specialist followed. DVT prophylaxis provided . Renal parameters and electrolytes were closely monitored, electrolytes corrected as needed, and nephrotoxic's were avoided. Patient had multiply bowel movements, and felt better . Patient was able to eat well oral diet. Urine culture revealed E. coli. Blood cultures were negative. Per ID specialist, patient had asymptomatic bacteriuria . ID specialist recommended to monitor patient off antibiotic, unless febrile , leukocytosis or urinary symptoms . Patient received 2 days of antibiotics. Supportive care provided Home medication continue Potassium and magnesium were replaced . Pulse oximetry remained stable on room air. Pulmonary toilet was on board as needed. Blood pressure was managed with the calcium channel darin remained stable. Patient clinically stabilized and was ready for discharge home. FINAL DIAGNOSES: Fecal impaction Acute kidney injury Chronic DVT Status post IVC filter Diabetes Hypertension History of CVA Asthma Dementia DISCHARGE MEDICATIONS: See Medication Reconciliation list. DISCHARGE INSTRUCTIONS: Patient was discharged home. Follow-up with a primary care provider in 1 week. I have been assigned to dictate discharge summary for this account. I was not involved in the patient's management. Sugey Flores NP Jun 15, 2020 16:39
--- NOTE | 2020-06-16 11:49 | NUR ---
INSURANCE DC SUMMARY/ INSTRUCTIONS/ HP.. CLINICALS FAXED TO [facility] [place] (06/12-06/14) FX [phone] PH [phone]
== END 2020-06-14 19:00 | disposition home or self-care (01) ==
LOC: EDBD 12:49 → EMR 13:23 → 4E 20:15 → INTOOBSV 20:15 → EDBEDREQ 20:59
DX: K56.41 Fecal impaction (principal); N17.9 Acute kidney failure, unspecified; I82.509 Chronic embolism and thrombosis of unspecified deep veins of unspecified lower extremity; M54.41 Lumbago with sciatica, right side; Z88.6 Allergy status to analgesic agent; Z88.0 Allergy status to penicillin; Z88.8 Allergy status to other drugs, medicaments and biological substances; Z95.828 Presence of other vascular implants and grafts; I11.0 Hypertensive heart disease with heart failure; I50.9 Heart failure, unspecified; E11.9 Type 2 diabetes mellitus without complications; Z86.73 Personal history of transient ischemic attack (TIA), and cerebral infarction without residual deficits; J45.909 Unspecified asthma, uncomplicated; F03.90 Unspecified dementia, unspecified severity, without behavioral disturbance, psychotic disturbance, mood disturbance, and anxiety; M48.00 Spinal stenosis, site unspecified; Z90.49 Acquired absence of other specified parts of digestive tract
CPT/HCPCS: 36415 ×3; 72131; 73700; 74018; 80053 ×3; 81003; 83690; 83735; 84100; 84439; 84443; 85025 ×3; 85651; 86140; 87040; 87081 ×3; 87086; 87181; 94664; 99285; G0378 ×2; J0692; J3370; J3480